=== PATIENT | female | born 1955 | race Caucasian/White ===

== ENCOUNTER 2018-11-10 09:50 | Inpatient (IN) | payer MEDICAID, OTHER ==
[~2018-11-10] VITALS: Ht 167.6 cm; Wt 123.3 kg
[~2018-11-10 09:50] MED LIST: ATE25T PO; CARCD120C PO; DIL100C PO; IBUP-1984 PO; LISI40TA4 PO; OMEP-84 PO; TEG100T PO; ZOC40T PO
[2018-11-10 10:35] LABS: BASOPHILS % (AUTO) 0.4 % (0-1); EOSINOPHILS # (AUTO) 0.2 X10'3 (0-0.9); HEMATOCRIT 37.6 % (35.0-45.0); HEMOGLOBIN 12.3 g/dl (12.0-16.0); LYMPHOCYTES # (AUTO) 1.2 X10'3 (1.1-4.8); LYMPHOCYTES % (AUTO) 9.9 % (21-51); MEAN CORPUSCULAR HEMOGLOBIN 31.2 PG (27.0-31.0); MEAN CORPUSCULAR HGB CONC 32.8 g/dL (33.0-36.5); MEAN CORPUSCULAR VOLUME 95.3 FL (78-98); MEAN PLATELET VOLUME 7.7 FL (7.4-10.4); MONOCYTES # (AUTO) 1.2 X10'3 (0-0.9); MONOCYTES % (AUTO) 9.9 % (2-12); NEUTROPHILS # (AUTO) 9.6 X10'3 (1.8-7.7); NEUTROPHILS % (AUTO) 77.8 % (42-75); PLATELET COUNT 474 X10'3 (140-440); RED BLOOD COUNT 3.95 X10'6 (4.20-5.60); RED CELL DISTRIBUTION WIDTH 14.8 % (11.5-14.5); WHITE BLOOD COUNT 12.4 X10'3 (4.5-11.0)
[2018-11-10 10:47] LABS: ALANINE AMINOTRANSFERASE 15 U/L (12-78); ALBUMIN 2.6 G/DL (3.4-5.0); ALBUMIN/GLOBULIN RATIO 0.5 (1.1-1.5); ALKALINE PHOSPHATASE 82 IU/L (46-116); ANION GAP 12 (8-16); ASPARTATE AMINO TRANSFERASE 19 U/L (10-37); BILIRUBIN,TOTAL 0.1 MG/DL (0.1-1.0); BLOOD UREA NITROGEN 42 MG/DL (7-18); BUN/CREATININE RATIO 20.2 (6.6-38.0); CALCIUM 8.8 MG/DL (8.5-10.1); CHLORIDE 103 MMOL/L (99-107); CREATININE 2.08 MG/DL (0.40-0.90); GLUCOSE 133 MG/DL (70-104); SODIUM 138 MMOL/L (135-145); TOTAL CARBON DIOXIDE 23.3 MMOL/L (24-32); TOTAL PROTEIN 7.5 G/DL (6.4-8.2); eGFR 24 ML/MIN
[2018-11-10 10:49] LABS: POTASSIUM 4.7 MMOL/L (3.5-5.1)
--- NOTE | 2018-11-10 11:01 | NUR ---
awaiting patient to be seen by ED MD.visitor at bedside.
[2018-11-10 11:56] LABS: PARTIAL THROMBOPLASTIN TIME 27 SECONDS (22-32)
[2018-11-10] MEDS ORDERED: CefTRIAXone 2gm/D5W 50ml 50 ML IV ONE (14:40)
[2018-11-10] MEDS ORDERED: IPRA4AER IH (14:56)
[2018-11-10] MEDS ORDERED: BUDE10.2 INH (14:57)
[2018-11-10] MEDS ORDERED: magnesium Cl slow-release 64mg tablet PO PRN (15:00)
[2018-11-10] MEDS ORDERED: acetaminophen 325mg tablet PO PRN ×2 (15:00)
[2018-11-10] MEDS ORDERED: magnesium hydroxide 30ml (MOM) UD suspension PO PRN (15:00)
[2018-11-10] MEDS ORDERED: magnesium 4gm in 100ml NS 100 ML IV PRN (15:00)
[2018-11-10] MEDS ORDERED: CARB200T40 PO (15:00)
[2018-11-10] MEDS: ipratropium/albuterol 3ml nebule NEB SCH ×3 (15:00→23:00)
[2018-11-10] MEDS ORDERED: potassium Cl 20 mEq SR tablet PO PRN ×2 (15:00)
[2018-11-10] MEDS ORDERED: ipratropium/albuterol 3ml nebule NEB PRN (15:00)
[2018-11-10] MEDS ORDERED: potassium CL 10mEq/100ml bag 100 ML IV PRN ×2 (15:00)
[2018-11-10] MEDS ORDERED: magnesium 2GM in 50ml NS 50 ML IV PRN (15:00)
[2018-11-10] MEDS ORDERED: HYDROmorphone 1 mg/ml syringe IV PRN (15:00)
[2018-11-10] MEDS ORDERED: LISI-644 PO (15:00)
[2018-11-10] MEDS ORDERED: HYDROmorphone inj. 0.5 MG/0.5 ML DISP.SYRIN IV PRN (15:00)
[2018-11-10] MEDS ORDERED: ondansetron/PF 4mg/2ml inj IV PRN (15:00)
--- NOTE | 2018-11-10 15:05 | NUR ---
per phamarquez/Mehul,ok to admin rocephin with pcn allergy as long as reaction from pcn was not anaphylactic.
--- NOTE | 2018-11-10 15:49 | NUR ---
Received report from ER nurse Reji. Patient alert, oriented, and vitals are stable at this time.
[2018-11-10 16:00] VITALS: BP 111/73
[2018-11-10] MEDS: normal saline 1000ml 1,000 ML IV SCH (16:16)
[2018-11-10 16:20] VITALS: BP 97/70
[2018-11-10 16:32] LABS: HEMOGLOBIN A1C 6.7 % (4.5-6.2)
[2018-11-10 16:33] VITALS: BP 94/61
[2018-11-10 17:24] LABS: ALBUMIN,BODY FLUID 2.4 G/DL; GLUCOSE,BODY FLUID 142 MG/DL; TOTAL PROTEIN,BODY FLUID 5.1 G/DL
[2018-11-10 17:38] LABS: BFSOURCE LEFT PLEURAL FLD; PLEURAL FLUID PH 6.698 (7.63-7.65)
--- NOTE | 2018-11-10 18:00 | NUR ---
Patients' IV removed because cap of Y-site that was not connected to tubing was open to air. It was a line from the [place] [facility] and someone accidentally took off the access cap that is purple because it's the same color as our tubing. Patients' NS was found free flowing out onto the bed.
--- NOTE | 2018-11-10 18:10 | NUR ---
Problems reprioritized. Patient report given, questions answered & plan of care reviewed with LEXI Deluca.
--- NOTE | 2018-11-10 18:15 | NUR ---
Patient in room [facility]. I have received report from Beatriz ELLIOTT and had the opportunity to ask questions and assume patient care.
[2018-11-10 19:00] VITALS: BP 111/72
[2018-11-10 19:04] LABS: BFAPPEAR BLOODY
[2018-11-10 19:05] LABS: BFCOLOR RED; BFVOLUME 45 ML
[2018-11-10 19:06] LABS: BASOPHILS,BODY FLUID 0 %; BF MESOTHELIAL CELLS FEW; BF RBC COUNT 37778 /CU MM; BF WBC COUNT 1222 /CU MM (0-1000); EOSINOPHILS,BODY FLUID 0 %; LYMPHOCYTES,BODY FLUID 80 %; MONOCYTES,BODY FLUID 14 %; NEUTROPHILS,BODY FLUID 7 %
[2018-11-10] MEDS: budesonide 0.5mg/2ml UD nebule IH SCH (19:20)
[2018-11-10 19:33] LABS: PHENYTOIN (DILANTIN) 5.6 UG/ML (10.0-20.0)
[2018-11-10] MEDS: carBAMazepine 100mg chewable tablet PO SCH (19:44)
[2018-11-10] MEDS: phenytoin sod ER 100mg capsule PO SCH (19:45)
[2018-11-10] MEDS ORDERED: ipratropium/albuterol 3ml nebule IH SCH (21:00)
[2018-11-10] MEDS ORDERED: albuterol 2.5 MG/3 ML nebule NEB SCH (21:00)
[2018-11-11] MEDS: HYDROcodone/acetaminophen 5mg/325mg tablet PO PRN (00:01)
[2018-11-11 00:21] VITALS: BP 97/54
[2018-11-11] MEDS: normal saline 1000ml 1,000 ML IV SCH ×3 (04:20→20:56)
--- NOTE | 2018-11-11 06:00 | NUR ---
Patient in room [facility]. I have received report from MATT ELLIOTT and had the opportunity to ask questions and assume patient care.
--- NOTE | 2018-11-11 06:19 | NUR ---
Gave report to Carmen ELLIOTT pt is awake and alert on 2L of O2 via NC, pt is requesting a banana, call light and items of freq use within reach.
[2018-11-11 06:52] LABS: BASOPHILS # (AUTO) 0.1 X10'3 (0-0.2); BASOPHILS % (AUTO) 0.9 % (0-1); EOSINOPHILS # (AUTO) 0.3 X10'3 (0-0.9); EOSINOPHILS % (AUTO) 2.6 % (0-6); HEMATOCRIT 35.9 % (35.0-45.0); HEMOGLOBIN 12.2 g/dl (12.0-16.0); LYMPHOCYTES # (AUTO) 1.1 X10'3 (1.1-4.8); LYMPHOCYTES % (AUTO) 10.6 % (21-51); MEAN CORPUSCULAR HEMOGLOBIN 32.2 PG (27.0-31.0); MEAN CORPUSCULAR HGB CONC 33.8 g/dL (33.0-36.5); MEAN CORPUSCULAR VOLUME 95.1 FL (78-98); MEAN PLATELET VOLUME 7.6 FL (7.4-10.4); MONOCYTES # (AUTO) 1.2 X10'3 (0-0.9); MONOCYTES % (AUTO) 11.5 % (2-12); NEUTROPHILS # (AUTO) 7.5 X10'3 (1.8-7.7); NEUTROPHILS % (AUTO) 74.4 % (42-75); PLATELET COUNT 472 X10'3 (140-440); RED BLOOD COUNT 3.78 X10'6 (4.20-5.60); RED CELL DISTRIBUTION WIDTH 14.6 % (11.5-14.5); WHITE BLOOD COUNT 10.1 X10'3 (4.5-11.0)
[2018-11-11 06:57] LABS: ANION GAP 10 (8-16); BILIRUBIN,TOTAL 0.2 MG/DL (0.1-1.0); BLOOD UREA NITROGEN 45 MG/DL (7-18); CALCIUM 8.6 MG/DL (8.5-10.1); CHLORIDE 107 MMOL/L (99-107); CREATININE 2.05 MG/DL (0.40-0.90); GLUCOSE 110 MG/DL (70-104); PHOSPHORUS 5.9 MG/DL (2.3-4.5); POTASSIUM 4.5 MMOL/L (3.5-5.1); SODIUM 142 MMOL/L (135-145); TOTAL CARBON DIOXIDE 24.8 MMOL/L (24-32); eGFR 24 ML/MIN
[2018-11-11 06:58] LABS: ALANINE AMINOTRANSFERASE 15 U/L (12-78); ALBUMIN 2.3 G/DL (3.4-5.0); ALBUMIN/GLOBULIN RATIO 0.5 (1.1-1.5); ALKALINE PHOSPHATASE 72 IU/L (46-116); ASPARTATE AMINO TRANSFERASE 16 U/L (10-37); CHOL/HDL RATIO 4.9 (0.00-4.99); CHOLESTEROL 177 MG/DL (0-200); HDL CHOLESTEROL 36 MG/DL (35-60); LDL CHOLESTEROL 111 MG/DL (50-100); TOTAL PROTEIN 6.8 G/DL (6.4-8.2); TRIGLYCERIDES 152 MG/DL (20-135)
[2018-11-11 07:00] VITALS: BP 93/53
[2018-11-11] MEDS: budesonide 0.5mg/2ml UD nebule IH SCH ×2 (07:43→19:06)
[2018-11-11] MEDS: ipratropium/albuterol 3ml nebule NEB SCH ×5 (07:43→23:00)
[2018-11-11] MEDS: K and/or MAG REPLACEMENT MC SCH (08:00)
[2018-11-11] MEDS ORDERED: carBAMazepine 100mg chewable tablet PO SCH (08:00)
[2018-11-11] MEDS: carBAMazepine 100mg chewable tablet PO SCH ×2 (08:24→19:26)
[2018-11-11] MEDS: phenytoin sod ER 100mg capsule PO SCH ×2 (08:25→19:26)
[2018-11-11] MEDS: CefTRIAXone/D5W-Rocephin 1gm 50 ML IV SCH (08:25)
--- NOTE | 2018-11-11 09:20 | NUR ---
DM consult: Patient's A1c is 6.7, DM education not warranted at this time. Will continue to follow. Addendum: 11/11/18 at [address] Amended: Links added.
[2018-11-11 11:00] VITALS: BP 158/124
[2018-11-11 11:58] VITALS: BP 140/60
--- NOTE | 2018-11-11 11:59 | NUR ---
PT'S BP CHECK WITH AUTOMATIC CUFF SEEMED OFF. RECHECKED MANUALLY. BP 140/60
--- NOTE | 2018-11-11 18:05 | NUR ---
Received report from Carmen ELLIOTT pt is awake and alert sitting in bedside chair eating dinner in no apparent distress, call light and items of freq use within reach.
--- NOTE | 2018-11-11 18:12 | NUR ---
GAVE REPORT TO MATT ELLIOTT
[2018-11-11 19:00] VITALS: BP 91/54
[2018-11-11] MEDS: lactobacillus rhamnosus 10,000 MMU CELLS/CAPSULE PO SCH (19:26)
[2018-11-12 00:46] VITALS: BP 108/59
[2018-11-12] MEDS: normal saline 1000ml 1,000 ML IV SCH (01:23)
--- NOTE | 2018-11-12 06:34 | NUR ---
Gave report to Carmen ELLIOTT pt is awake and alert on 2l OF O2, in no apparent distress.
[2018-11-12 06:40] LABS: BASOPHILS # (AUTO) 0.1 X10'3 (0-0.2); BASOPHILS % (AUTO) 0.7 % (0-1); EOSINOPHILS # (AUTO) 0.2 X10'3 (0-0.9); HEMATOCRIT 34.9 % (35.0-45.0); HEMOGLOBIN 11.5 g/dl (12.0-16.0); LYMPHOCYTES % (AUTO) 8.7 % (21-51); MEAN CORPUSCULAR HEMOGLOBIN 31.5 PG (27.0-31.0); MEAN CORPUSCULAR VOLUME 95.6 FL (78-98); MEAN PLATELET VOLUME 7.6 FL (7.4-10.4); MONOCYTES # (AUTO) 1.2 X10'3 (0-0.9); MONOCYTES % (AUTO) 10.7 % (2-12); NEUTROPHILS # (AUTO) 8.8 X10'3 (1.8-7.7); NEUTROPHILS % (AUTO) 77.9 % (42-75); PLATELET COUNT 448 X10'3 (140-440); RED BLOOD COUNT 3.65 X10'6 (4.20-5.60); RED CELL DISTRIBUTION WIDTH 14.4 % (11.5-14.5); WHITE BLOOD COUNT 11.3 X10'3 (4.5-11.0)
--- NOTE | 2018-11-12 06:45 | NUR ---
Patient in room [facility]. I have received report from MATT ELLIOTT and had the opportunity to ask questions and assume patient care.
[2018-11-12 06:50] LABS: ALANINE AMINOTRANSFERASE 13 U/L (12-78); ALBUMIN 2.3 G/DL (3.4-5.0); ALBUMIN/GLOBULIN RATIO 0.5 (1.1-1.5); ALKALINE PHOSPHATASE 70 IU/L (46-116); ANION GAP 15 (8-16); ASPARTATE AMINO TRANSFERASE 13 U/L (10-37); BILIRUBIN,TOTAL 0.3 MG/DL (0.1-1.0); BLOOD UREA NITROGEN 31 MG/DL (7-18); BUN/CREATININE RATIO 25.4 (6.6-38.0); CALCIUM 8.5 MG/DL (8.5-10.1); CHLORIDE 105 MMOL/L (99-107); CREATININE 1.22 MG/DL (0.40-0.90); GLUCOSE 133 MG/DL (70-104); MAGNESIUM 2.1 MG/DL (1.5-2.4); PHOSPHORUS 3.5 MG/DL (2.3-4.5); SODIUM 142 MMOL/L (135-145); TOTAL CARBON DIOXIDE 22.3 MMOL/L (24-32); TOTAL PROTEIN 6.8 G/DL (6.4-8.2); eGFR 45 ML/MIN
[2018-11-12 07:00] VITALS: BP 103/66
[2018-11-12] MEDS: budesonide 0.5mg/2ml UD nebule IH SCH ×2 (07:23→19:33)
[2018-11-12] MEDS: ipratropium/albuterol 3ml nebule NEB SCH ×5 (07:23→23:31)
[2018-11-12] MEDS: K and/or MAG REPLACEMENT MC SCH (08:00)
[2018-11-12] MEDS: lactobacillus rhamnosus 10,000 MMU CELLS/CAPSULE PO SCH ×2 (08:18→20:10)
[2018-11-12] MEDS: phenytoin sod ER 100mg capsule PO SCH ×2 (08:18→20:11)
[2018-11-12] MEDS: CefTRIAXone/D5W-Rocephin 1gm 50 ML IV SCH (08:18)
[2018-11-12] MEDS: carBAMazepine 100mg chewable tablet PO SCH ×2 (08:19→20:12)
[2018-11-12 11:00] VITALS: BP 99/64
[2018-11-12] MEDS ORDERED: furosemide 20 MG/2 ML vial IV ONE (12:45)
--- NOTE | 2018-11-12 18:00 | NUR ---
Received report from LEXI Morales and assumed plan of care. Patient resting comfortably in chair.
--- NOTE | 2018-11-12 18:30 | NUR ---
Patient in room [facility]. I have received report from VICTORIA and had the opportunity to ask questions and assume patient care. Addendum: 11/13/18 at 0401 by Flor Nunez RN ASSUMED CARE OF PT WITH LEXI Cha
[2018-11-12 19:00] VITALS: BP 125/78
[2018-11-13] VITALS: BP 114/68
--- NOTE | 2018-11-13 03:59 | NUR ---
Student documentation: I have reviewed and agree with all interventions, assessments performed and documented by JOSÉ MIGUEL Cha Student Medication Administration: For this medication-pass time frame, all medication were reviewed, dispensed, administered and documented per hospital policy by JOSÉ MIGUEL Cha
--- NOTE | 2018-11-13 05:25 | NUR ---
PT C/O SOB UPON WAKING UP. OXYGEN SATURATIONS 83-85% ON 3L NC. RT PAGED AT THIS TIME. PT PLACED ON 4L NC. ENCOURAGED PURSED LIP BREATHING. OXYGEN SATS 88%. RT HERE FOR TX AT THIS TIME. LUNGS CONTINUE TO SOUND DIMINISHED WITH CRACKLES IN POSTERIOR BASES. POST RT TX: OXYGEN SATURATIONS 88-89% 5L NC. PT REPOSITIONED IN BED. USING IS AT THIS TIME. OXYGEN SATURATIONS 93%. ENCOURAGED INCREASE USE OF IS AND COUGH DEEP BREATHE. CONTINUE TO MONITOR.
[2018-11-13 05:31] LABS: BASOPHILS # (AUTO) 0.1 X10'3 (0-0.2); BASOPHILS % (AUTO) 0.4 % (0-1); EOSINOPHILS # (AUTO) 0.3 X10'3 (0-0.9); EOSINOPHILS % (AUTO) 2.5 % (0-6); HEMOGLOBIN 11.5 g/dl (12.0-16.0); LYMPHOCYTES # (AUTO) 1.2 X10'3 (1.1-4.8); LYMPHOCYTES % (AUTO) 9.6 % (21-51); MEAN CORPUSCULAR HEMOGLOBIN 31.1 PG (27.0-31.0); MEAN CORPUSCULAR HGB CONC 32.8 g/dL (33.0-36.5); MEAN CORPUSCULAR VOLUME 94.9 FL (78-98); MEAN PLATELET VOLUME 7.6 FL (7.4-10.4); MONOCYTES # (AUTO) 1.3 X10'3 (0-0.9); MONOCYTES % (AUTO) 10.5 % (2-12); NEUTROPHILS # (AUTO) 9.4 X10'3 (1.8-7.7); PLATELET COUNT 443 X10'3 (140-440); RED BLOOD COUNT 3.68 X10'6 (4.20-5.60); RED CELL DISTRIBUTION WIDTH 14.5 % (11.5-14.5); WHITE BLOOD COUNT 12.3 X10'3 (4.5-11.0)
[2018-11-13 05:32] LABS: ALANINE AMINOTRANSFERASE 17 U/L (12-78); ALBUMIN 2.2 G/DL (3.4-5.0); ALBUMIN/GLOBULIN RATIO 0.5 (1.1-1.5); ALKALINE PHOSPHATASE 70 IU/L (46-116); ANION GAP 11 (8-16); ASPARTATE AMINO TRANSFERASE 20 U/L (10-37); BILIRUBIN,TOTAL 0.3 MG/DL (0.1-1.0); BLOOD UREA NITROGEN 23 MG/DL (7-18); BUN/CREATININE RATIO 22.1 (6.6-38.0); CALCIUM 8.3 MG/DL (8.5-10.1); CHLORIDE 107 MMOL/L (99-107); CREATININE 1.04 MG/DL (0.40-0.90); GLUCOSE 130 MG/DL (70-104); MAGNESIUM 1.9 MG/DL (1.5-2.4); POTASSIUM 3.8 MMOL/L (3.5-5.1); SODIUM 142 MMOL/L (135-145); TOTAL CARBON DIOXIDE 24.1 MMOL/L (24-32); TOTAL PROTEIN 6.8 G/DL (6.4-8.2); eGFR 54 ML/MIN
--- NOTE | 2018-11-13 06:15 | NUR ---
Patient in room [facility]. I have received report from LEXI Ray and had the opportunity to ask questions and assume patient care.
[2018-11-13 06:30] VITALS: BP 130/78
--- NOTE | 2018-11-13 06:39 | NUR ---
Problems reprioritized. Patient report given, questions answered & plan of care reviewed with MAINE.
[2018-11-13] MEDS: budesonide 0.5mg/2ml UD nebule IH SCH ×2 (06:57→19:45)
[2018-11-13] MEDS: ipratropium/albuterol 3ml nebule NEB SCH ×5 (06:57→23:57)
[2018-11-13] MEDS: K and/or MAG REPLACEMENT MC SCH (07:00)
[2018-11-13] MEDS ORDERED: furosemide 20 MG/2 ML vial IV SCH (08:00)
[2018-11-13] MEDS: lactobacillus rhamnosus 10,000 MMU CELLS/CAPSULE PO SCH ×2 (08:34→20:06)
[2018-11-13] MEDS: CefTRIAXone/D5W-Rocephin 1gm 50 ML IV SCH (08:34)
[2018-11-13] MEDS: carBAMazepine 100mg chewable tablet PO SCH ×2 (08:36→20:16)
[2018-11-13] MEDS: phenytoin sod ER 100mg capsule PO SCH ×2 (08:36→20:07)
[2018-11-13] MEDS ORDERED: furosemide 20 MG/2 ML vial IV ONE (08:50)
[2018-11-13 11:00] VITALS: BP 115/75
[2018-11-13] MEDS: nystatin 15 GM powder TP SCH ×2 (14:16→20:17)
[2018-11-13 18:00] VITALS: BP 110/66
--- NOTE | 2018-11-13 18:20 | NUR ---
Patient in room [facility]. I have received report from Raysa Ryan RN and had the opportunity to ask questions and assume patient care.
--- NOTE | 2018-11-13 18:23 | NUR ---
Patient in room [facility]. I have received report from LEXI Zayas and had the opportunity to ask questions and assume patient care.
[2018-11-13] MEDS: HYDROcodone/acetaminophen 5mg/325mg tablet PO PRN (20:08)
[2018-11-13] MEDS: furosemide 40mg/4ml inj IV SCH (20:09)
[2018-11-13 23:24] VITALS: BP 117/82
[2018-11-14 05:03] LABS: BASOPHILS # (AUTO) 0.1 X10'3 (0-0.2); BASOPHILS % (AUTO) 0.8 % (0-1); EOSINOPHILS # (AUTO) 0.3 X10'3 (0-0.9); EOSINOPHILS % (AUTO) 2.5 % (0-6); HEMATOCRIT 34.4 % (35.0-45.0); HEMOGLOBIN 11.4 g/dl (12.0-16.0); LYMPHOCYTES % (AUTO) 7.8 % (21-51); MEAN CORPUSCULAR HEMOGLOBIN 31.1 PG (27.0-31.0); MEAN CORPUSCULAR VOLUME 94.3 FL (78-98); MEAN PLATELET VOLUME 7.3 FL (7.4-10.4); MONOCYTES # (AUTO) 1.4 X10'3 (0-0.9); MONOCYTES % (AUTO) 11.6 % (2-12); NEUTROPHILS # (AUTO) 9.4 X10'3 (1.8-7.7); NEUTROPHILS % (AUTO) 77.3 % (42-75); PLATELET COUNT 420 X10'3 (140-440); RED BLOOD COUNT 3.65 X10'6 (4.20-5.60); RED CELL DISTRIBUTION WIDTH 14.6 % (11.5-14.5); WHITE BLOOD COUNT 12.2 X10'3 (4.5-11.0)
--- NOTE | 2018-11-14 05:16 | NUR ---
Pt requesting Benadryl for itchy/stuffy nose. Obtained MD order. Pharmacy states allergy is noted. Confirmed with pt and she states that she does not have any allergy and takes it OTC at home.
[2018-11-14 05:24] LABS: ALANINE AMINOTRANSFERASE 15 U/L (12-78); ALBUMIN 2.1 G/DL (3.4-5.0); ALBUMIN/GLOBULIN RATIO 0.5 (1.1-1.5); ALKALINE PHOSPHATASE 71 IU/L (46-116); ANION GAP 12 (8-16); ASPARTATE AMINO TRANSFERASE 15 U/L (10-37); BILIRUBIN,TOTAL 0.3 MG/DL (0.1-1.0); BLOOD UREA NITROGEN 19 MG/DL (7-18); CHLORIDE 106 MMOL/L (99-107); CREATININE 0.95 MG/DL (0.40-0.90); GLUCOSE 131 MG/DL (70-104); MAGNESIUM 1.7 MG/DL (1.5-2.4); POTASSIUM 3.6 MMOL/L (3.5-5.1); SODIUM 142 MMOL/L (135-145); TOTAL CARBON DIOXIDE 24.5 MMOL/L (24-32); TOTAL PROTEIN 6.7 G/DL (6.4-8.2); eGFR 59 ML/MIN
[2018-11-14] MEDS: diphenhydrAMINE 25mg capsule PO PRN (05:26)
--- NOTE | 2018-11-14 06:30 | NUR ---
Patient in room [facility]. I have received report from Rocio RN and Raysa Ryan RN and had the opportunity to ask questions and assume patient care. Patient is resting in chair, denies needs at this time.
--- NOTE | 2018-11-14 06:30 | NUR ---
Problems reprioritized. Patient report given, questions answered & plan of care reviewed with LEXI Dolan.
[2018-11-14 07:21] VITALS: BP 107/65
[2018-11-14] MEDS: budesonide 0.5mg/2ml UD nebule IH SCH ×2 (07:51→19:05)
[2018-11-14] MEDS: ipratropium/albuterol 3ml nebule NEB SCH ×5 (07:51→23:00)
[2018-11-14] MEDS: K and/or MAG REPLACEMENT MC SCH (08:00)
[2018-11-14 08:34] LABS: HBSAG SCREEN Negative (Negative); HEP A AB, IGM Negative (Negative); HEP B CORE AB, IGM Negative (Negative); HEPATITIS C ANTIBODY <0.1 s/co ratio (0.0-0.9)
[2018-11-14] MEDS: furosemide 40mg/4ml inj IV SCH ×2 (09:04→20:17)
[2018-11-14] MEDS: lactobacillus rhamnosus 10,000 MMU CELLS/CAPSULE PO SCH ×2 (09:04→20:15)
[2018-11-14] MEDS: phenytoin sod ER 100mg capsule PO SCH ×2 (09:04→20:17)
[2018-11-14] MEDS: CefTRIAXone/D5W-Rocephin 1gm 50 ML IV SCH (09:05)
[2018-11-14] MEDS: nystatin 15 GM powder TP SCH ×3 (09:08→20:15)
[2018-11-14] MEDS: carBAMazepine 100mg chewable tablet PO SCH ×2 (09:15→20:16)
[2018-11-14 11:30] VITALS: BP 104/70
[2018-11-14 18:00] VITALS: BP 106/73
--- NOTE | 2018-11-14 18:48 | NUR ---
Problems reprioritized. Patient report given, questions answered & plan of care reviewed with Raysa Lieberman RN. Resting denies needs at this time.
[2018-11-15] VITALS (7 sets, daily range): BP systolic 100–137; BP diastolic 48–92
[2018-11-15] MEDS ORDERED: normal saline 500ml IV soln 500 ML IV ONE
[2018-11-15] MEDS: diphenhydrAMINE 25mg capsule PO PRN (00:24)
[2018-11-15 00:48] LABS: BASOPHILS # (AUTO) 0.1 X10'3 (0-0.2); BASOPHILS % (AUTO) 0.8 % (0-1); EOSINOPHILS # (AUTO) 0.3 X10'3 (0-0.9); EOSINOPHILS % (AUTO) 2.1 % (0-6); HEMATOCRIT 35.5 % (35.0-45.0); HEMOGLOBIN 11.9 g/dl (12.0-16.0); LYMPHOCYTES # (AUTO) 1.1 X10'3 (1.1-4.8); LYMPHOCYTES % (AUTO) 8.4 % (21-51); MEAN CORPUSCULAR HEMOGLOBIN 31.3 PG (27.0-31.0); MEAN CORPUSCULAR HGB CONC 33.7 g/dL (33.0-36.5); MEAN CORPUSCULAR VOLUME 92.9 FL (78-98); MEAN PLATELET VOLUME 7.1 FL (7.4-10.4); MONOCYTES # (AUTO) 1.8 X10'3 (0-0.9); MONOCYTES % (AUTO) 13.4 % (2-12); NEUTROPHILS % (AUTO) 75.3 % (42-75); PLATELET COUNT 453 X10'3 (140-440); RED BLOOD COUNT 3.82 X10'6 (4.20-5.60); RED CELL DISTRIBUTION WIDTH 14.4 % (11.5-14.5); WHITE BLOOD COUNT 13.3 X10'3 (4.5-11.0)
[2018-11-15 01:00] LABS: ALBUMIN 2.2 G/DL (3.4-5.0); ANION GAP 9 (8-16); BLOOD UREA NITROGEN 20 MG/DL (7-18); BUN/CREATININE RATIO 21.1 (6.6-38.0); CALCIUM 8.1 MG/DL (8.5-10.1); CHLORIDE 102 MMOL/L (99-107); CREATININE 0.95 MG/DL (0.40-0.90); GLUCOSE 134 MG/DL (70-104); MAGNESIUM 1.6 MG/DL (1.5-2.4); POTASSIUM 3.3 MMOL/L (3.5-5.1); SODIUM 139 MMOL/L (135-145); TOTAL CARBON DIOXIDE 27.9 MMOL/L (24-32); eGFR 59 ML/MIN
[2018-11-15] MEDS ORDERED: magnesium 2GM in 50ml NS 50 ML IV PRN (01:10)
[2018-11-15] MEDS ORDERED: potassium Cl 20 mEq SR tablet PO PRN (01:10)
[2018-11-15] MEDS ORDERED: magnesium Cl slow-release 64mg tablet PO PRN (01:10)
[2018-11-15] MEDS ORDERED: potassium CL 10mEq/100ml bag 100 ML IV PRN (01:10)
[2018-11-15] MEDS ORDERED: magnesium 4gm in 100ml NS 100 ML IV PRN (01:10)
[2018-11-15] MEDS ORDERED: magnesium 2GM in 50ml NS 50 ML IV ONE (01:10)
--- NOTE | 2018-11-15 01:12 | NUR ---
Pt HR in the 130's and sustaining. Pt asymptomatic. EKG results sent to . QT interval prolonged. Reviewed current meds with MD. Stat BMP, CBC, Mag obtained. 500 mL bolus given. Pt remains in the 120's. Pt K 3.3, Mag 1.7. Obtained orders for K replacement and 2gm Mag replacement. Will continue to monitor. Patient resting at this time.
[2018-11-15] MEDS: potassium Cl 20 mEq SR tablet PO PRN ×2 (01:17→07:54)
[2018-11-15] MEDS: HYDROcodone/acetaminophen 10/325mg tab PO PRN ×3 (02:00→19:56)
--- NOTE | 2018-11-15 03:11 | NUR ---
Tele confirms HR still in 120's.
--- NOTE | 2018-11-15 06:04 | NUR ---
Problems reprioritized. Patient report given, questions answered & plan of care reviewed with LEXI Dolan.
--- NOTE | 2018-11-15 06:10 | NUR ---
Patient in room [facility]. I have received report from Raysa Lieberman RN and had the opportunity to ask questions and assume patient care. Patient resting in bed, denies needs at this time.
--- NOTE | 2018-11-15 06:45 | NUR ---
Received note that tele called stating that the patient's HR is maintaining in the 130s. Notified Dr. Walter, received order to provide NS at 500 ml bolus, get orthostatic vital signs, and hold lasix. Will continue to monitor.
[2018-11-15] MEDS ORDERED: normal saline 500ml IV soln 1,000 ML IV ONE (06:50)
[2018-11-15] MEDS: ipratropium/albuterol 3ml nebule NEB SCH ×4 (07:00→19:24)
[2018-11-15] MEDS: furosemide 40mg/4ml inj IV SCH (07:17)
--- NOTE | 2018-11-15 07:19 | NUR ---
Patient in room [facility]. I have received report from Kelsi and had the opportunity to ask questions and assume patient care.
[2018-11-15] MEDS: CefTRIAXone/D5W-Rocephin 1gm 50 ML IV SCH (07:53)
[2018-11-15] MEDS: carBAMazepine 100mg chewable tablet PO SCH ×2 (07:53→19:51)
[2018-11-15] MEDS: lactobacillus rhamnosus 10,000 MMU CELLS/CAPSULE PO SCH ×2 (07:54→19:51)
[2018-11-15] MEDS: phenytoin sod ER 100mg capsule PO SCH ×2 (07:54→19:51)
[2018-11-15] MEDS: budesonide 0.5mg/2ml UD nebule IH SCH ×2 (08:04→19:24)
[2018-11-15] MEDS: K and/or MAG REPLACEMENT MC SCH (08:29)
[2018-11-15 09:03] LABS: BASOPHILS # (AUTO) 0.1 X10'3 (0-0.2); BASOPHILS % (AUTO) 0.9 % (0-1); EOSINOPHILS # (AUTO) 0.3 X10'3 (0-0.9); EOSINOPHILS % (AUTO) 2.5 % (0-6); HEMATOCRIT 35.9 % (35.0-45.0); HEMOGLOBIN 12.1 g/dl (12.0-16.0); LYMPHOCYTES # (AUTO) 0.8 X10'3 (1.1-4.8); LYMPHOCYTES % (AUTO) 6.8 % (21-51); MEAN CORPUSCULAR HEMOGLOBIN 31.7 PG (27.0-31.0); MEAN CORPUSCULAR HGB CONC 33.8 g/dL (33.0-36.5); MEAN CORPUSCULAR VOLUME 93.6 FL (78-98); MEAN PLATELET VOLUME 7.4 FL (7.4-10.4); MONOCYTES # (AUTO) 1.3 X10'3 (0-0.9); MONOCYTES % (AUTO) 10.5 % (2-12); NEUTROPHILS # (AUTO) 9.6 X10'3 (1.8-7.7); NEUTROPHILS % (AUTO) 79.3 % (42-75); PLATELET COUNT 463 X10'3 (140-440); RED BLOOD COUNT 3.83 X10'6 (4.20-5.60); RED CELL DISTRIBUTION WIDTH 14.3 % (11.5-14.5); WHITE BLOOD COUNT 12.1 X10'3 (4.5-11.0)
[2018-11-15] MEDS: nystatin 15 GM powder TP SCH ×3 (09:14→19:58)
[2018-11-15 09:16] LABS: ALANINE AMINOTRANSFERASE 14 U/L (12-78); ALBUMIN 2.1 G/DL (3.4-5.0); ALBUMIN/GLOBULIN RATIO 0.4 (1.1-1.5); ALKALINE PHOSPHATASE 74 IU/L (46-116); ANION GAP 9 (8-16); ASPARTATE AMINO TRANSFERASE 18 U/L (10-37); BILIRUBIN,TOTAL 0.3 MG/DL (0.1-1.0); BLOOD UREA NITROGEN 20 MG/DL (7-18); CHLORIDE 104 MMOL/L (99-107); CREATININE 0.91 MG/DL (0.40-0.90); GLUCOSE 131 MG/DL (70-104); MAGNESIUM 2.1 MG/DL (1.5-2.4); PHOSPHORUS 2.8 MG/DL (2.3-4.5); POTASSIUM 3.9 MMOL/L (3.5-5.1); SODIUM 141 MMOL/L (135-145); TOTAL CARBON DIOXIDE 27.9 MMOL/L (24-32); TOTAL PROTEIN 6.9 G/DL (6.4-8.2); eGFR 62 ML/MIN
--- NOTE | 2018-11-15 09:51 | NUR ---
Notified Dr. Copeland that the patient's HR has been sustaining in the 120-130s since midnight. 2 bolus of NS 500 mls given, orthostatics negative, and lasix was held. Lungs were clear at start of shift and now having crackles in lower bases posteriorly. Received order from Dr. Copeland to order stat chest xray and have her walk frequently to improve lungs. Will continue to monitor.
[2018-11-15] MEDS: metoprolol tartrate 12.5mg (1/2 tablet) PO SCH ×2 (11:42→19:52)
--- NOTE | 2018-11-15 11:56 | NUR ---
Problems reprioritized. Patient report given, questions answered & plan of care reviewed with Kelsi.
--- NOTE | 2018-11-15 12:10 | NUR ---
Patient in room [facility]. I have received report from og garnett and had the opportunity to ask questions and assume patient care.
--- NOTE | 2018-11-15 17:51 | NUR ---
Student documentation: I have reviewed interventions, assessments performed and documented by Keenan Student Nurse.
--- NOTE | 2018-11-15 18:46 | NUR ---
Problems reprioritized. Patient report given, questions answered & plan of care reviewed with Ina ELLIOTT. Patient states just off BSC and would like emptied, done.
[2018-11-15] MEDS: furosemide 20 MG/2 ML vial IV SCH (19:52)
[2018-11-16] VITALS: BP 110/70
[2018-11-16] MEDS: ipratropium/albuterol 3ml nebule NEB SCH ×4 (00:02→15:00)
[2018-11-16] MEDS: mag hydrox/Alum hydrox/simeth 30ml oral suspension PO PRN ×3 (02:45→15:11)
[2018-11-16] MEDS: HYDROcodone/acetaminophen 10/325mg tab PO PRN ×2 (02:46→07:49)
--- NOTE | 2018-11-16 02:53 | NUR ---
up to [facility], c/o "heart burn" maalox given, burped with relief. poc with pillows. Addendum: 11/16/18 at 0254 by Masha Donato RN Amended: Links added.
--- NOTE | 2018-11-16 04:30 | NUR ---
o2 sat dropped down to 79% on 2.5 l n/c. o2 back up to 3l n/c, sat 89%. pt hr has remained in 90's throughout night, but just went up to 120 when pt using bsc. will continue to monitor. Addendum: 11/16/18 at 0441 by Masha Donato RN Amended: Links added.
[2018-11-16 05:03] VITALS: BP 113/73
--- NOTE | 2018-11-16 06:30 | NUR ---
Problems reprioritized. Patient report given, questions answered & plan of care reviewed with LEXI Calhoun. Addendum: 11/16/18 at 0644 by Masha Donato RN Amended: Links added.
[2018-11-16 06:55] LABS: BASOPHILS # (AUTO) 0.1 X10'3 (0-0.2); BASOPHILS % (AUTO) 0.9 % (0-1); EOSINOPHILS # (AUTO) 0.3 X10'3 (0-0.9); EOSINOPHILS % (AUTO) 2.5 % (0-6); HEMATOCRIT 35.5 % (35.0-45.0); LYMPHOCYTES % (AUTO) 7.9 % (21-51); MEAN CORPUSCULAR HEMOGLOBIN 31.8 PG (27.0-31.0); MEAN CORPUSCULAR HGB CONC 33.9 g/dL (33.0-36.5); MEAN CORPUSCULAR VOLUME 93.7 FL (78-98); MEAN PLATELET VOLUME 7.8 FL (7.4-10.4); MONOCYTES # (AUTO) 1.3 X10'3 (0-0.9); NEUTROPHILS # (AUTO) 9.5 X10'3 (1.8-7.7); NEUTROPHILS % (AUTO) 77.7 % (42-75); PLATELET COUNT 442 X10'3 (140-440); RED BLOOD COUNT 3.79 X10'6 (4.20-5.60); RED CELL DISTRIBUTION WIDTH 14.5 % (11.5-14.5); WHITE BLOOD COUNT 12.2 X10'3 (4.5-11.0)
[2018-11-16 07:00] VITALS: BP_SYST 107; BP_SYST 108; BP_SYST 117; BP_DIAS 53; BP_DIAS 60; BP_DIAS 75
[2018-11-16 07:05] LABS: ALBUMIN 2.2 G/DL (3.4-5.0); ANION GAP 11 (8-16); BLOOD UREA NITROGEN 21 MG/DL (7-18); BUN/CREATININE RATIO 23.3 (6.6-38.0); CALCIUM 8.3 MG/DL (8.5-10.1); CHLORIDE 103 MMOL/L (99-107); GLUCOSE 123 MG/DL (70-104); MAGNESIUM 2.2 MG/DL (1.5-2.4); SODIUM 139 MMOL/L (135-145); TOTAL CARBON DIOXIDE 24.6 MMOL/L (24-32); eGFR 63 ML/MIN
[2018-11-16] MEDS: furosemide 20 MG/2 ML vial IV SCH (07:42)
[2018-11-16] MEDS: lactobacillus rhamnosus 10,000 MMU CELLS/CAPSULE PO SCH (07:48)
[2018-11-16] MEDS: CefTRIAXone/D5W-Rocephin 1gm 50 ML IV SCH (07:48)
[2018-11-16] MEDS: phenytoin sod ER 100mg capsule PO SCH (07:49)
[2018-11-16] MEDS: carBAMazepine 100mg chewable tablet PO SCH (07:49)
[2018-11-16] MEDS: metoprolol tartrate 12.5mg (1/2 tablet) PO SCH (07:50)
[2018-11-16] MEDS: budesonide 0.5mg/2ml UD nebule IH SCH (07:55)
[2018-11-16] MEDS: K and/or MAG REPLACEMENT MC SCH (08:00)
[2018-11-16] MEDS: nystatin 15 GM powder TP SCH (08:03)
--- NOTE | 2018-11-16 10:00 | NUR ---
Patient in room [facility]. I have received report from Unique (time was 15) and had the opportunity to ask questions and assume patient care.
--- NOTE | 2018-11-16 10:27 | NUR ---
O2 Sat at rest on room air:87% If below 89%: Recovery O2 Sat at rest on 3 LPM:94 %: via_nasal cannula___(mask/nasal cannula, etc..) No further documentation is necessary. If O2 Sat did not drop below 89% on room air,ambulate patient on room air. O2 Sat while ambulating on room air:___% Recovery O2 Sat while ambulating on ___LPM:___% No further documentation is necessary. If patient does not drop below 89% while ambulating, he/she does not qualify for home O2.
[2018-11-16 11:03] VITALS: BP 103/69
[2018-11-16] MEDS ORDERED: FURO-149 PO (11:14)
[2018-11-16] MEDS ORDERED: METO25TA6 PO (11:14)
--- NOTE | 2018-11-16 12:00 | NUR ---
Patient in room [facility]. I have received report from og student RN and had the opportunity to ask questions and assume patient care.
--- NOTE | 2018-11-16 12:00 | NUR ---
came and spoke with patient about pathology report. Dr. Urbina called and agreed to see patient in her office early next week. Patient ready for discharge, instructions given and reviewed. Awaiting delivery of home oxygen and then patient will discharge home.
--- NOTE | 2018-11-16 12:03 | NUR ---
Problems reprioritized. Patient report given, questions answered & plan of care reviewed with Unique.
--- NOTE | 2018-11-16 16:17 | NUR ---
Patient has a fair appetite, eating about 50-75% average of carb controlled meals. Admitted with bilateral pleural effusion s/p thoracentesis with 1650 ml out, SHERWIN, COPD, h/o CHF, HTN, hyperlipidemia, seizures, DM. Patient has shortness of breath, needing oxygen. Per MD note, patient is being started on statin for hyperlipidemia. Pending discharge home today. Recommend: 1. continue carb controlled diet 2. wt per rx Addendum: 11/16/18 at [address] Amended: Links added.
[2018-11-16] MEDS: HYDROcodone/acetaminophen 5mg/325mg tablet PO PRN (16:28)
--- NOTE | 2018-11-16 17:25 | NUR ---
Student documentation: I have reviewed and agree with all interventions, assessments performed and documented by Maddison MUSE.
--- NOTE | 2018-11-16 17:39 | NUR ---
Patient refusing care and wanting to leave AMA. Still waiting for home o2 to be delivered. Called [employer], they stated that the order has processed, however they do not have an ETA on the delivery.
--- NOTE | 2018-11-16 17:39 | NUR ---
Blood glucose not taken due to patient discharging.
--- NOTE | 2018-11-16 18:26 | NUR ---
Patient discharged home with sister. IV removed. playground monitor removed. All belongings taken from room. Home O2 delivered and set up for patient. Discharge instructions given and reviewed with patient. All questions answered. Instructed patient on the importance of following up with Dr Urbina the oncologist.
== END 2018-11-16 18:23 | disposition home or self-care (01) | DRG 682 ==
LOC: ER 09:50 → SUR 3N 15:49
PROVIDERS: ADMIT Family Medicine; ATTEND Hospitalist
PROC: 0W9B3ZZ Drainage of Left Pleural Cavity, Percutaneous Approach (ICD-10-PCS; principal; 2018-11-10)
DX: N17.0 Acute kidney failure with tubular necrosis (principal); I50.33 Acute on chronic diastolic (congestive) heart failure; J44.1 Chronic obstructive pulmonary disease with (acute) exacerbation; Z68.41 Body mass index [BMI] 40.0-44.9, adult; J91.8 Pleural effusion in other conditions classified elsewhere; R18.8 Other ascites; E66.01 Morbid (severe) obesity due to excess calories; E11.9 Type 2 diabetes mellitus without complications; E78.5 Hyperlipidemia, unspecified; G47.33 Obstructive sleep apnea (adult) (pediatric); I11.0 Hypertensive heart disease with heart failure; K74.60 Unspecified cirrhosis of liver; M19.90 Unspecified osteoarthritis, unspecified site; R00.0 Tachycardia, unspecified; Z98.51 Tubal ligation status; Z88.0 Allergy status to penicillin; Z88.1 Allergy status to other antibiotic agents; Z88.8 Allergy status to other drugs, medicaments and biological substances; Z79.899 Other long term (current) drug therapy
CPT/HCPCS: 32555; 36415; 71045; 71250; 76700; 80048; 80053; 80061; 80074; 80185; 82042; 82945; 82948; 83036; 83735; 83880; 83986; 84100; 84157; 84443; 84484; 85025; 85610; 85730; 87070; 87075; 87081; 87102; 89051; 93005; 93308; 94640; 94760; 96365; 97110; 97112; 97116; 97161; 97530; 99285; G0378; J0696; J1940; J3475; J7030; J7040; J7626; Q0163

== ENCOUNTER 2018-11-29 10:30 | Inpatient (IN) | payer OTHER ==
[~2018-11-29] VITALS: Ht 170.2 cm; Wt 128.0 kg
[~2018-11-29 10:30] MED LIST changes: -ATE25T PO; +BUDE10.2 INH; +CARB200T40 PO; -CARCD120C PO; +CIPR-230 PO; +COMIN IH; +FURO-149 PO; +IPRA4AER IH; +LISI-644 PO; -LISI40TA4 PO; +METO25TA6 PO; -OMEP-84 PO; +PRED10TA PO; -TEG100T PO; -ZOC40T PO
[2018-11-29] MEDS ORDERED: normal saline 1000ML IV soln IVB ONE (11:05)
--- NOTE | 2018-11-29 11:12 | NUR ---
PT TAKEN TO CT VIA GURNEY BY TECH.
--- NOTE | 2018-11-29 11:44 | NUR ---
NOTIFY PROVIDER THAT PT HAS BILATERAL LOWER EXTREMITY PITTING EDEMA. ALSO TAKES LASIX AT HOME. PT IS MAINTAINING A BP MAP OF 72. WILL HOLD THE FLUIDS FOR NOW.
[2018-11-29 11:50] LABS: ABG HCO3 22.5 mmol/L (22.0-26.0); ABG OXYGEN SATURATION 90.8 % (95-98); ABG PCO2 (T) 46.6 mmHg (35.0-45.0); ABG PH (T) 7.301 (7.350-7.450); ABG PO2 (T) 63.2 mmHg (83-108); FCOHb 0.3 % (0.5-1.5); FLOW 3 L/min; FO2Hb 90.5 % (94-100); RESPIRATORY RATE (OBSERVED) 20 b/min; TOTAL HEMOGLOBIN 11.6 G/dl (12.0-16.0)
[2018-11-29 12:10] LABS: BASOPHILS # (AUTO) 0.1 X10'3 (0-0.2); EOSINOPHILS # (AUTO) 0.1 X10'3 (0-0.9); EOSINOPHILS % (AUTO) 1.1 % (0-6); MONOCYTES # (AUTO) 1.1 X10'3 (0-0.9); MONOCYTES % (AUTO) 9.1 % (2-12)
[2018-11-29 12:12] LABS: HEMATOCRIT 35.2 % (35.0-45.0); HEMOGLOBIN 11.7 g/dl (12.0-16.0); LYMPHOCYTES # (AUTO) 0.8 X10'3 (1.1-4.8); LYMPHOCYTES % (AUTO) 7.2 % (21-51); MEAN CORPUSCULAR HEMOGLOBIN 31.2 PG (27.0-31.0); MEAN CORPUSCULAR HGB CONC 33.4 g/dL (33.0-36.5); MEAN CORPUSCULAR VOLUME 93.6 FL (78-98); MEAN PLATELET VOLUME 7.1 FL (7.4-10.4); NEUTROPHILS # (AUTO) 9.6 X10'3 (1.8-7.7); NEUTROPHILS % (AUTO) 81.6 % (42-75); PLATELET COUNT 595 X10'3 (140-440); RED BLOOD COUNT 3.76 X10'6 (4.20-5.60); WHITE BLOOD COUNT 11.8 X10'3 (4.5-11.0)
[2018-11-29 12:20] LABS: AMMONIA < 10 UMOL/L (11-32)
[2018-11-29 12:24] LABS: ALANINE AMINOTRANSFERASE 15 U/L (12-78); ALBUMIN 2.2 G/DL (3.4-5.0); ALBUMIN/GLOBULIN RATIO 0.4 (1.1-1.5); ALKALINE PHOSPHATASE 84 IU/L (46-116); ANION GAP 12 (8-16); ASPARTATE AMINO TRANSFERASE 17 U/L (10-37); BILIRUBIN,TOTAL 0.2 MG/DL (0.1-1.0); BLOOD UREA NITROGEN 53 MG/DL (7-18); BUN/CREATININE RATIO 21.5 (6.6-38.0); CALCIUM 9.5 MG/DL (8.5-10.1); CHLORIDE 101 MMOL/L (99-107); CREATININE 2.47 MG/DL (0.40-0.90); GLUCOSE 121 MG/DL (70-104); POTASSIUM 4.3 MMOL/L (3.5-5.1); SODIUM 137 MMOL/L (135-145); TOTAL CARBON DIOXIDE 24.2 MMOL/L (24-32); TOTAL PROTEIN 7.7 G/DL (6.4-8.2); eGFR 20 ML/MIN
[2018-11-29 12:26] LABS: TROPONIN I < 0.04 NG/ML (0.0-0.05)
[2018-11-29] MEDS ORDERED: cefepime 1GM in D5W 50mL 50 ML IV ONE (12:35)
[2018-11-29] MEDS ORDERED: cefepime 1GM/NS ADD-VANTAGE 100 ML IV ONE (12:44)
[2018-11-29 13:45] LABS: CLARITY,URINE CLOUDY (Clear); COLOR,URINE YELLOW (Yellow); GLUCOSE, URINE NEGATIVE (Neg); KETONES,URINE NEGATIVE (Neg); LEUKOCYTE ESTERASE ,URINE NEGATIVE (Neg); NITRITES, URINE NEGATIVE (Neg); OCCULT BLOOD,URINE NEGATIVE (Neg); PH,URINE 5.5 (4.8-8.0); PROTEIN,URINE NEGATIVE (Neg); UROBILINOGEN,URINE 0.2 E.U/dL (0.2-1.0)
--- NOTE | 2018-11-29 13:45 | NUR ---
called pharmacy for pt cefepime ,as per pharmacy they will bring it to the er.
[2018-11-29 13:50] LABS: UA COLLECTION TYPE STRAIGHT CATH
[2018-11-29 13:51] LABS: SQUAMOUS EPITHELIAL CELL,UR MODERATE /LPF (FEW)
[2018-11-29 13:52] LABS: BACTERIA,URINE 2+ /HPF (Neg); RBC,URINE 0-2 /HPF (0-2); WBC,URINE 0-4 /HPF (0-4)
[2018-11-29 13:54] LABS: AMORPHOUS URATES 2+
[2018-11-29 14:06] LABS: URINE AMPHETAMINE SCREEN NEGATIVE (Neg); URINE BARBITUATE SCREEN NEGATIVE (Neg); URINE BENZODIAZEPINES SCREEN NEGATIVE (Neg); URINE CANNABINOID SCREEN NEGATIVE (Neg); URINE COCAINE SCREEN NEGATIVE (Neg); URINE METHADONE SCREEN NEGATIVE (Neg); URINE OPIATE SCREEN NEGATIVE (Neg); URINE PHENCYCLIDINE SCREEN NEGATIVE (Neg)
--- NOTE | 2018-11-29 14:08 | NUR ---
dr rivas at bedside ,pt cpap removed as per dr rivas's orders for assessment of pt,pt saturated 96% on ra.
--- NOTE | 2018-11-29 14:34 | NUR ---
assumed care of pt from Paul ELLIOTT
[2018-11-29] MEDS ORDERED: acetaminophen 325mg tablet PO PRN ×2 (14:35)
[2018-11-29] MEDS ORDERED: acetaminophen 650mg rectal suppository RC PRN (14:35)
[2018-11-29] MEDS ORDERED: magnesium 4gm in 100ml NS 100 ML IV PRN (14:35)
[2018-11-29] MEDS: K and/or MAG REPLACEMENT MC SCH (14:35)
[2018-11-29] MEDS ORDERED: magnesium hydroxide 30ml (MOM) UD suspension PO PRN (14:35)
[2018-11-29] MEDS ORDERED: bisacodyl 10mg suppository rectal RC PRN (14:35)
[2018-11-29] MEDS ORDERED: HYDROcodone/acetaminophen 5mg/325mg tablet PO PRN (14:35)
[2018-11-29] MEDS ORDERED: potassium Cl 20 mEq SR tablet PO PRN ×2 (14:35)
[2018-11-29] MEDS ORDERED: diphenhydrAMINE 50 mg/ml inj IV PRN (14:35)
[2018-11-29] MEDS ORDERED: potassium CL 10mEq/100ml bag 100 ML IV PRN ×2 (14:35)
[2018-11-29] MEDS ORDERED: HYDROcodone/acetaminophen 10/325mg tab PO PRN (14:35)
[2018-11-29] MEDS ORDERED: magnesium Cl slow-release 64mg tablet PO PRN (14:35)
[2018-11-29] MEDS ORDERED: furosemide 10 MG/1 ML 10ml inj IV ONE ×2 (14:35→16:05)
[2018-11-29] MEDS ORDERED: ondansetron/PF 4mg/2ml inj IV PRN (14:35)
[2018-11-29] MEDS ORDERED: magnesium 2GM in 50ml NS 50 ML IV PRN (14:35)
[2018-11-29] MEDS ORDERED: morphine 2 MG/ML inj. syringe IV PRN ×2 (14:35)
--- NOTE | 2018-11-29 14:51 | NUR ---
PRIMARY RN WAS SENT TO BREAK. BP TRENDING LOW, PAGED THE HOSPITALIST. 84/40, 77/47, 110/47
--- NOTE | 2018-11-29 14:55 | NUR ---
RECEIVED TELEPHONE ORDER OF NS 500ML BOLUS AND CONTINUE BIPAP
[2018-11-29] MEDS ORDERED: normal saline 1000ml 1,000 ML IV ONE (15:00)
--- NOTE | 2018-11-29 15:15 | NUR ---
rt at bedside to do ABG
[2018-11-29 15:21] LABS: ABG BASE EXCESS -3.6 mmol/L (-2.0-3.0); ABG HCO3 22.7 mmol/L (22.0-26.0); ABG OXYGEN SATURATION 93.2 % (95-98); ABG PH (T) 7.311 (7.350-7.450); ABG PO2 (T) 71.8 mmHg (83-108); ALLEN'S TEST Positive; FCOHb 0.3 % (0.5-1.5); FMetHb 0.3 % (0.3-1.12); FO2Hb 92.6 % (94-100); MINUTE VOLUME 14 L/min; RESPIRATORY RATE 16 b/min; RESPIRATORY RATE (OBSERVED) 28 b/min; TIDAL VOLUME 1016 mL; TOTAL HEMOGLOBIN 11.6 G/dl (12.0-16.0)
[2018-11-29] MEDS: azithromycin 250mg tablet PO SCH (15:24)
--- NOTE | 2018-11-29 15:26 | NUR ---
lasix not given at this time due to low BP
[2018-11-29] MEDS: ipratropium/albuterol 3ml nebule NEB SCH ×3 (15:27→23:15)
--- NOTE | 2018-11-29 15:30 | NUR ---
PT TAKEN OFF OF BIPAP BY RT, PLACED ON 3 LITERS NASAL CANNULA, PT CONTINUES TO REST QUIETLY ON BED, RESP EVEN AND UNLABORED, SKIN P/W/D
[2018-11-29] MEDS ORDERED: cefepime 1GM in D5W 50mL 50 ML IV SCH (16:00)
[2018-11-29 16:08] LABS: PHENYTOIN (DILANTIN) 3.2 UG/ML (10.0-20.0)
--- NOTE | 2018-11-29 16:21 | NUR ---
REPORT CALLED TO CORDELL ELLIOTT
[2018-11-29] MEDS ORDERED: METO25TA6 PO (16:45)
[2018-11-29] MEDS ORDERED: FURO-149 PO (16:46)
[2018-11-29 17:00] VITALS: BP 113/62
[2018-11-29] MEDS: normal saline 1000ml 1,000 ML IV SCH (17:02)
[2018-11-29] MEDS: cefepime 1GM/NS ADD-VANTAGE 100 ML IV SCH (17:02)
--- NOTE | 2018-11-29 17:19 | NUR ---
Patient is admitted to room PCU 3024 from ED. I have received report from Ana Maria ELLIOTT and had the opportunity to ask questions and assume patient care. VSS @ 113/62 (12) 98.1 66 18 90 on 3L pain lvl 0/10, Tele monitor 48 applied and IV abx infusing, oriented pt to room, will continue to monitor.
--- NOTE | 2018-11-29 18:44 | NUR ---
Problems reprioritized. Patient report given, questions answered & plan of care reviewed with Genny ELLIOTT.
[2018-11-29 19:00] VITALS: BP 122/71
[2018-11-29] MEDS: furosemide 10 MG/1 ML 10ml inj IV SCH ×2 (20:00→23:20)
[2018-11-29] MEDS: heparin, porcine 5000 units/ml vial SQ SCH (22:26)
--- NOTE | 2018-11-29 22:27 | NUR ---
Pt self d/c IV earlier @ 2100. 4 attempts at IV starts two different RN's will attempt to have another RN attempt when they're available. Non-admin IV lasix at this time. Discussed with primary RN.
[2018-11-29 23:00] VITALS: BP 109/72
[2018-11-30] MEDS: cefepime 1GM/NS ADD-VANTAGE 100 ML IV SCH ×4 (01:34→23:18)
[2018-11-30] MEDS: ipratropium/albuterol 3ml nebule NEB SCH ×6 (02:52→23:00)
[2018-11-30 03:00] VITALS: BP 83/60
[2018-11-30 05:51] LABS: BASOPHILS # (AUTO) 0.1 X10'3 (0-0.2); BASOPHILS % (AUTO) 1.1 % (0-1); EOSINOPHILS # (AUTO) 0.2 X10'3 (0-0.9); EOSINOPHILS % (AUTO) 1.5 % (0-6); HEMATOCRIT 34.4 % (35.0-45.0); HEMOGLOBIN 11.5 g/dl (12.0-16.0); LYMPHOCYTES # (AUTO) 0.3 X10'3 (1.1-4.8); LYMPHOCYTES % (AUTO) 2.9 % (21-51); MEAN CORPUSCULAR HEMOGLOBIN 31.7 PG (27.0-31.0); MEAN CORPUSCULAR HGB CONC 33.3 g/dL (33.0-36.5); MEAN CORPUSCULAR VOLUME 95.1 FL (78-98); MEAN PLATELET VOLUME 7.3 FL (7.4-10.4); MONOCYTES % (AUTO) 8.7 % (2-12); NEUTROPHILS # (AUTO) 10.2 X10'3 (1.8-7.7); NEUTROPHILS % (AUTO) 85.8 % (42-75); PLATELET COUNT 586 X10'3 (140-440); RED BLOOD COUNT 3.62 X10'6 (4.20-5.60); RED CELL DISTRIBUTION WIDTH 14.7 % (11.5-14.5); WHITE BLOOD COUNT 11.8 X10'3 (4.5-11.0)
[2018-11-30 06:00] VITALS: BP 90/63
[2018-11-30 06:13] LABS: ALANINE AMINOTRANSFERASE 15 U/L (12-78); ALBUMIN 2.2 G/DL (3.4-5.0); ALBUMIN/GLOBULIN RATIO 0.4 (1.1-1.5); ALKALINE PHOSPHATASE 86 IU/L (46-116); ANION GAP 16 (8-16); ASPARTATE AMINO TRANSFERASE 13 U/L (10-37); BILIRUBIN,TOTAL 0.3 MG/DL (0.1-1.0); BLOOD UREA NITROGEN 52 MG/DL (7-18); BUN/CREATININE RATIO 24.8 (6.6-38.0); CALCIUM 8.6 MG/DL (8.5-10.1); CHLORIDE 101 MMOL/L (99-107); CHOL/HDL RATIO 4.9 (0.00-4.99); CHOLESTEROL 192 MG/DL (0-200); GLUCOSE 139 MG/DL (70-104); HDL CHOLESTEROL 39 MG/DL (35-60); LDL CHOLESTEROL 127 MG/DL (50-100); PHOSPHORUS 5.7 MG/DL (2.3-4.5); POTASSIUM 4.2 MMOL/L (3.5-5.1); SODIUM 140 MMOL/L (135-145); TOTAL CARBON DIOXIDE 23.4 MMOL/L (24-32); TOTAL PROTEIN 7.7 G/DL (6.4-8.2); TRIGLYCERIDES 132 MG/DL (20-135); eGFR 24 ML/MIN
[2018-11-30 07:00] LABS: ANISOCYTOSIS 1+; LARGE PLATELETS FEW; PLATELET ESTIMATE INCREASED
[2018-11-30] MEDS: heparin, porcine 5000 units/ml vial SQ SCH ×2 (07:42→19:31)
[2018-11-30] MEDS: azithromycin 250mg tablet PO SCH (07:42)
[2018-11-30 08:00] VITALS: BP_SYST 100; BP_SYST 106; BP_DIAS 62; BP_DIAS 69
[2018-11-30] MEDS: K and/or MAG REPLACEMENT MC SCH (08:00)
[2018-11-30] MEDS ORDERED: albuterol 2.5 MG/3 ML nebule NEB PRN (11:10)
--- NOTE | 2018-11-30 11:45 | NUR ---
Patient orthostatic BP at standing position was tried multiple times with no success. Was able to obtain supine and sitting.
[2018-11-30 12:08] LABS: PHENYTOIN (DILANTIN) 3.4 UG/ML (10.0-20.0)
[2018-11-30] MEDS: carBAMazepine 100mg chewable tablet PO SCH ×2 (13:43→19:30)
[2018-11-30] MEDS: nystatin 15 GM powder TP SCH ×2 (13:43→21:20)
[2018-11-30 15:00] VITALS: BP 108/60
[2018-11-30] MEDS: ipratropium/albuterol 3ml nebule IH SCH ×2 (15:03→20:21)
[2018-11-30 18:00] VITALS: BP 119/68
--- NOTE | 2018-11-30 18:55 | NUR ---
Problems reprioritized. Patient report given, questions answered & plan of care reviewed with Shiva ELLIOTT.
[2018-11-30] MEDS: lactobacillus rhamnosus 10,000 MMU CELLS/CAPSULE PO SCH (19:29)
[2018-11-30] MEDS: metoprolol tartrate 12.5mg (1/2 tablet) PO SCH (19:30)
[2018-11-30] MEDS: phenytoin sod ER 100mg capsule PO SCH (19:30)
[2018-11-30] MEDS: diphenhydrAMINE 25mg capsule PO PRN (19:31)
[2018-11-30] MEDS: budesonide 0.5mg/2ml UD nebule IH SCH (20:21)
[2018-11-30 22:00] VITALS: BP 98/48
--- NOTE | 2018-11-30 22:37 | NUR ---
patient has refused orthostatic vital signs
[2018-12-01] VITALS (7 sets, daily range): BP systolic 86–141; BP diastolic 43–75
[2018-12-01] MEDS: ipratropium/albuterol 3ml nebule NEB SCH ×3 (03:00→23:12)
[2018-12-01] MEDS: ipratropium/albuterol 3ml nebule IH PRN (04:56)
[2018-12-01 05:24] LABS: BASOPHILS # (AUTO) 0.1 X10'3 (0-0.2); BASOPHILS % (AUTO) 0.6 % (0-1); EOSINOPHILS # (AUTO) 0.4 X10'3 (0-0.9); EOSINOPHILS % (AUTO) 3.1 % (0-6); HEMATOCRIT 32.2 % (35.0-45.0); HEMOGLOBIN 10.6 g/dl (12.0-16.0); LYMPHOCYTES # (AUTO) 0.4 X10'3 (1.1-4.8); LYMPHOCYTES % (AUTO) 2.9 % (21-51); MEAN CORPUSCULAR HEMOGLOBIN 31.2 PG (27.0-31.0); MEAN CORPUSCULAR VOLUME 94.6 FL (78-98); MEAN PLATELET VOLUME 7.1 FL (7.4-10.4); MONOCYTES # (AUTO) 1.2 X10'3 (0-0.9); MONOCYTES % (AUTO) 9.2 % (2-12); NEUTROPHILS # (AUTO) 10.7 X10'3 (1.8-7.7); NEUTROPHILS % (AUTO) 84.2 % (42-75); PLATELET COUNT 474 X10'3 (140-440); WHITE BLOOD COUNT 12.7 X10'3 (4.5-11.0)
[2018-12-01 05:49] LABS: ALANINE AMINOTRANSFERASE 16 U/L (12-78); ALBUMIN/GLOBULIN RATIO 0.4 (1.1-1.5); ALKALINE PHOSPHATASE 77 IU/L (46-116); ANION GAP 12 (8-16); ASPARTATE AMINO TRANSFERASE 19 U/L (10-37); BILIRUBIN,TOTAL 0.3 MG/DL (0.1-1.0); BLOOD UREA NITROGEN 47 MG/DL (7-18); BUN/CREATININE RATIO 25.5 (6.6-38.0); CALCIUM 8.9 MG/DL (8.5-10.1); CHLORIDE 105 MMOL/L (99-107); CREATININE 1.84 MG/DL (0.40-0.90); GLUCOSE 136 MG/DL (70-104); MAGNESIUM 2.3 MG/DL (1.5-2.4); PHOSPHORUS 5.3 MG/DL (2.3-4.5); SODIUM 142 MMOL/L (135-145); TOTAL CARBON DIOXIDE 25.5 MMOL/L (24-32); TOTAL PROTEIN 7.1 G/DL (6.4-8.2); eGFR 28 ML/MIN
--- NOTE | 2018-12-01 06:25 | NUR ---
Problems reprioritized. Patient report given, questions answered & plan of care reviewed with Christy ELLIOTT.
--- NOTE | 2018-12-01 07:00 | NUR ---
Pt was found unresposive to voice and sternal rubs when getting AM VS, VS 73/36 72 26 97.4 82% on 2L, rapid response was called, BS was drawn and 132, switched to non rebreather at max rate, SpO2 increase to 94% pt more alert and able to return back to her baseline, stat ABGs and Lactic ordered by Dr. Osman and Rapid response team, Dr. Arellano was paged and notified as well, placed a continuous O2 monitor and will closely monitor.
[2018-12-01 07:01] LABS: ABG BASE EXCESS -6.2 mmol/L (-2.0-3.0); ABG HCO3 20.6 mmol/L (22.0-26.0); ABG OXYGEN SATURATION 96.7 % (95-98); ABG PCO2 (T) 46.3 mmHg (35.0-45.0); ABG PH (T) 7.266 (7.350-7.450); ABG PO2 (T) 99.8 mmHg (83-108); FCOHb 0.1 % (0.5-1.5); FLOW 15 L/min; FMetHb 0.1 % (0.3-1.12); FO2Hb 96.5 % (94-100); TOTAL HEMOGLOBIN 11.6 G/dl (12.0-16.0)
[2018-12-01] MEDS: budesonide 0.5mg/2ml UD nebule IH SCH ×2 (07:10→19:18)
[2018-12-01] MEDS: ipratropium/albuterol 3ml nebule IH SCH ×4 (07:10→19:00)
[2018-12-01] MEDS: azithromycin 250mg tablet PO SCH (07:38)
[2018-12-01] MEDS: lactobacillus rhamnosus 10,000 MMU CELLS/CAPSULE PO SCH ×2 (07:39→21:29)
[2018-12-01] MEDS: heparin, porcine 5000 units/ml vial SQ SCH ×2 (07:39→21:30)
[2018-12-01] MEDS: nystatin 15 GM powder TP SCH ×3 (07:39→21:32)
[2018-12-01] MEDS: cefepime 1GM/NS ADD-VANTAGE 100 ML IV SCH ×2 (07:41→16:29)
[2018-12-01] MEDS: K and/or MAG REPLACEMENT MC SCH (08:00)
[2018-12-01] MEDS: lisinopril 10 MG tablet PO SCH (08:00)
[2018-12-01] MEDS: metoprolol tartrate 12.5mg (1/2 tablet) PO SCH ×2 (08:00→20:00)
[2018-12-01] MEDS: furosemide 10 MG/1 ML 10ml inj IV SCH (09:12)
[2018-12-01] MEDS: carBAMazepine 100mg chewable tablet PO SCH ×2 (09:12→21:30)
[2018-12-01] MEDS: phenytoin sod ER 100mg capsule PO SCH ×2 (09:13→21:29)
[2018-12-01] MEDS: normal saline 1000ml 1,000 ML IV SCH (14:34)
--- NOTE | 2018-12-01 15:37 | NUR ---
Unable to get Ortho VS, pt is unsteady on her feet to get a BP reading Addendum: 12/01/18 at 1538 by Christy Rogers RN Amended: Links added.
--- NOTE | 2018-12-01 17:56 | NUR ---
PAGER ID: [phone] MESSAGE: [phone] SardiniaMiguel felizin: Pt is requesting prn Lactaid for her meals, she states she is lactose intolerant. Thanks Christy Addendum: 12/01/18 at 1827 by Christy Rogers RN Received orders from Dr. Arellano to start Lactaid PRN
--- NOTE | 2018-12-01 18:10 | NUR ---
Patient in room PCU 3024A I have received report from LEXI Sneed and had the opportunity to ask questions and assume patient care. Pt is A& O X4, denies CP, n/v, dizziness, and rated pain 7/10. Pt is feeling cold and informed me that she is lactose intolerance. Naren placed order for Lactase 3,000 units. Will continue to monitor
--- NOTE | 2018-12-01 18:46 | NUR ---
Problems reprioritized. Patient report given, questions answered & plan of care reviewed with Boby Dallas.
[2018-12-02] VITALS (8 sets, daily range): BP systolic 83–136; BP diastolic 40–82
[2018-12-02] MEDS: cefepime 1GM/NS ADD-VANTAGE 100 ML IV SCH ×4 (00:48→20:41)
[2018-12-02] MEDS: ipratropium/albuterol 3ml nebule NEB SCH (03:31)
[2018-12-02] MEDS: mag hydrox/Alum hydrox/simeth 30ml oral suspension PO PRN (05:28)
[2018-12-02 05:39] LABS: BASOPHILS % (AUTO) 0.4 % (0-1); EOSINOPHILS # (AUTO) 0.6 X10'3 (0-0.9); HEMATOCRIT 30.8 % (35.0-45.0); HEMOGLOBIN 10.3 g/dl (12.0-16.0); LYMPHOCYTES # (AUTO) 0.6 X10'3 (1.1-4.8); LYMPHOCYTES % (AUTO) 5.1 % (21-51); MEAN CORPUSCULAR HGB CONC 33.5 g/dL (33.0-36.5); MEAN CORPUSCULAR VOLUME 95.4 FL (78-98); MEAN PLATELET VOLUME 7.1 FL (7.4-10.4); MONOCYTES # (AUTO) 1.2 X10'3 (0-0.9); MONOCYTES % (AUTO) 10.4 % (2-12); NEUTROPHILS # (AUTO) 9.1 X10'3 (1.8-7.7); NEUTROPHILS % (AUTO) 79.1 % (42-75); PLATELET COUNT 456 X10'3 (140-440); RED BLOOD COUNT 3.22 X10'6 (4.20-5.60); RED CELL DISTRIBUTION WIDTH 14.9 % (11.5-14.5); WHITE BLOOD COUNT 11.6 X10'3 (4.5-11.0)
[2018-12-02 06:16] LABS: ALANINE AMINOTRANSFERASE 16 U/L (12-78); ALBUMIN/GLOBULIN RATIO 0.4 (1.1-1.5); ALKALINE PHOSPHATASE 76 IU/L (46-116); ANION GAP 12 (8-16); ASPARTATE AMINO TRANSFERASE 20 U/L (10-37); BILIRUBIN,TOTAL 0.2 MG/DL (0.1-1.0); BLOOD UREA NITROGEN 48 MG/DL (7-18); BUN/CREATININE RATIO 28.6 (6.6-38.0); CALCIUM 8.4 MG/DL (8.5-10.1); CHLORIDE 104 MMOL/L (99-107); CREATININE 1.68 MG/DL (0.40-0.90); GLUCOSE 124 MG/DL (70-104); MAGNESIUM 2.1 MG/DL (1.5-2.4); PHOSPHORUS 4.4 MG/DL (2.3-4.5); POTASSIUM 3.8 MMOL/L (3.5-5.1); SODIUM 141 MMOL/L (135-145); TOTAL CARBON DIOXIDE 24.6 MMOL/L (24-32); TOTAL PROTEIN 7.1 G/DL (6.4-8.2); eGFR 31 ML/MIN
--- NOTE | 2018-12-02 06:32 | NUR ---
Problems reprioritized. Patient report given, questions answered & plan of care reviewed with LEXI Lindsay. Pt stable at shift change
[2018-12-02] MEDS: budesonide 0.5mg/2ml UD nebule IH SCH ×2 (07:34→19:20)
[2018-12-02] MEDS: ipratropium/albuterol 3ml nebule IH SCH ×4 (07:35→19:20)
[2018-12-02] MEDS: K and/or MAG REPLACEMENT MC SCH (08:00)
[2018-12-02] MEDS: metoprolol tartrate 12.5mg (1/2 tablet) PO SCH ×2 (08:00→20:44)
[2018-12-02] MEDS: furosemide 10 MG/1 ML 10ml inj IV SCH (08:00)
[2018-12-02] MEDS: lisinopril 10 MG tablet PO SCH (08:00)
[2018-12-02] MEDS: nystatin 15 GM powder TP SCH ×3 (08:00→20:48)
--- NOTE | 2018-12-02 09:05 | NUR ---
Patient was found in room, unable to arouse. Beverly charge nurse was in room giving patient sternal rub, Dr Copeland and I were walking in to see patient at this time. Vital signs were taken; BP 95/58 HR:77 O2:[address] Copeland ordered Bipap to be put back on. Patients O2 started to rise within about 4 minutes. Patient O2 saturation at 94% 10 minutes after occurrence.
[2018-12-02] MEDS: azithromycin 250mg tablet PO SCH (12:04)
[2018-12-02] MEDS: lactobacillus rhamnosus 10,000 MMU CELLS/CAPSULE PO SCH ×2 (12:04→20:42)
[2018-12-02] MEDS: heparin, porcine 5000 units/ml vial SQ SCH ×2 (12:05→20:41)
[2018-12-02] MEDS: phenytoin sod ER 100mg capsule PO SCH ×2 (12:12→20:43)
[2018-12-02] MEDS: carBAMazepine 100mg chewable tablet PO SCH ×2 (12:13→20:44)
[2018-12-02] MEDS ORDERED: VANCOMYCIN LEVEL IV ONE (15:30)
--- NOTE | 2018-12-02 18:30 | NUR ---
Problems reprioritized. Patient report given, questions answered & plan of care reviewed with Windy ELLIOTT.
--- NOTE | 2018-12-02 18:30 | NUR ---
Patient in room PCU 3024. I have received report from LEXI Lindsay and had the opportunity to ask questions and assume patient care.
[2018-12-03 03:00] VITALS: BP 89/70
--- NOTE | 2018-12-03 06:30 | NUR ---
Problems reprioritized. Patient report given, questions answered & plan of care reviewed with LEXI Cool.
[2018-12-03 07:00] VITALS: BP 104/57
[2018-12-03] MEDS: budesonide 0.5mg/2ml UD nebule IH SCH ×2 (07:15→20:52)
[2018-12-03] MEDS: ipratropium/albuterol 3ml nebule IH SCH ×4 (07:15→20:52)
[2018-12-03] MEDS: K and/or MAG REPLACEMENT MC SCH (08:00)
[2018-12-03] MEDS: lisinopril 10 MG tablet PO SCH (08:00)
[2018-12-03] MEDS: furosemide 10 MG/1 ML 10ml inj IV SCH (08:00)
[2018-12-03] MEDS: metoprolol tartrate 12.5mg (1/2 tablet) PO SCH ×2 (08:00→20:00)
[2018-12-03 08:13] LABS: ALANINE AMINOTRANSFERASE 16 U/L (12-78); ALBUMIN 1.9 G/DL (3.4-5.0); ALBUMIN/GLOBULIN RATIO 0.4 (1.1-1.5); ALKALINE PHOSPHATASE 71 IU/L (46-116); ANION GAP 10 (8-16); ASPARTATE AMINO TRANSFERASE 21 U/L (10-37); BILIRUBIN,TOTAL 0.3 MG/DL (0.1-1.0); BLOOD UREA NITROGEN 44 MG/DL (7-18); BUN/CREATININE RATIO 32.6 (6.6-38.0); CALCIUM 8.9 MG/DL (8.5-10.1); CHLORIDE 106 MMOL/L (99-107); CREATININE 1.35 MG/DL (0.40-0.90); GLUCOSE 111 MG/DL (70-104); MAGNESIUM 2.5 MG/DL (1.5-2.4); PHOSPHORUS 3.2 MG/DL (2.3-4.5); POTASSIUM 3.9 MMOL/L (3.5-5.1); SODIUM 142 MMOL/L (135-145); TOTAL CARBON DIOXIDE 26.5 MMOL/L (24-32); TOTAL PROTEIN 7.1 G/DL (6.4-8.2); eGFR 39 ML/MIN
[2018-12-03 08:20] LABS: BASOPHILS # (AUTO) 0.1 X10'3 (0-0.2); EOSINOPHILS # (AUTO) 0.5 X10'3 (0-0.9); EOSINOPHILS % (AUTO) 4.8 % (0-6); HEMATOCRIT 32.1 % (35.0-45.0); HEMOGLOBIN 10.8 g/dl (12.0-16.0); LYMPHOCYTES # (AUTO) 0.6 X10'3 (1.1-4.8); LYMPHOCYTES % (AUTO) 5.1 % (21-51); MEAN CORPUSCULAR HEMOGLOBIN 31.9 PG (27.0-31.0); MEAN CORPUSCULAR HGB CONC 33.6 g/dL (33.0-36.5); MEAN CORPUSCULAR VOLUME 94.9 FL (78-98); MEAN PLATELET VOLUME 7.3 FL (7.4-10.4); MONOCYTES # (AUTO) 1.2 X10'3 (0-0.9); MONOCYTES % (AUTO) 11.4 % (2-12); NEUTROPHILS # (AUTO) 8.5 X10'3 (1.8-7.7); NEUTROPHILS % (AUTO) 77.7 % (42-75); PLATELET COUNT 412 X10'3 (140-440); RED BLOOD COUNT 3.39 X10'6 (4.20-5.60); WHITE BLOOD COUNT 10.9 X10'3 (4.5-11.0)
[2018-12-03] MEDS: cefepime 1GM/NS ADD-VANTAGE 100 ML IV SCH ×3 (09:00→23:38)
[2018-12-03] MEDS: phenytoin sod ER 100mg capsule PO SCH ×2 (09:02→20:20)
[2018-12-03] MEDS: carBAMazepine 100mg chewable tablet PO SCH ×2 (09:03→20:20)
[2018-12-03] MEDS: lactobacillus rhamnosus 10,000 MMU CELLS/CAPSULE PO SCH ×2 (09:04→20:20)
[2018-12-03] MEDS: azithromycin 250mg tablet PO SCH (09:04)
[2018-12-03] MEDS: nystatin 15 GM powder TP SCH ×3 (09:08→20:20)
[2018-12-03] MEDS: heparin, porcine 5000 units/ml vial SQ SCH ×2 (09:09→20:19)
[2018-12-03 11:00] VITALS: BP 100/64
[2018-12-03] MEDS: normal saline 1000ml 1,000 ML IV SCH (14:36)
[2018-12-03 15:00] VITALS: BP 100/61
[2018-12-03 18:00] VITALS: BP 106/88
--- NOTE | 2018-12-03 18:18 | NUR ---
Orientee documentation: I have reviewed and agree with interventions, assessments performed and documented by Teri ELLIOTT. [place] Medication Administration: For this medication-pass time frame, medication were reviewed, dispensed, administered and documented per hospital policy by Teri ELLIOTT .
--- NOTE | 2018-12-03 18:39 | NUR ---
Problems reprioritized. Patient report given, questions answered & plan of care reviewed with Donna ELLIOTT.
[2018-12-03] MEDS: diphenhydrAMINE 25mg capsule PO PRN (20:20)
[2018-12-03 22:00] VITALS: BP 105/58
--- NOTE | 2018-12-03 22:42 | NUR ---
Patient in room U 3024. I have received report from LEXI Cool and had the opportunity to ask questions and assume patient care. Addendum: 12/03/18 at 2245 by Donna Chance RN Amended: Links added.
[2018-12-04] MEDS: ipratropium/albuterol 3ml nebule IH PRN (00:14)
[2018-12-04 02:00] VITALS: BP 117/71
[2018-12-04] MEDS: mag hydrox/Alum hydrox/simeth 30ml oral suspension PO PRN ×2 (02:01→16:44)
[2018-12-04 05:27] LABS: BASOPHILS # (AUTO) 0.1 X10'3 (0-0.2); BASOPHILS % (AUTO) 0.6 % (0-1); EOSINOPHILS # (AUTO) 0.4 X10'3 (0-0.9); EOSINOPHILS % (AUTO) 3.3 % (0-6); HEMATOCRIT 30.1 % (35.0-45.0); HEMOGLOBIN 10.2 g/dl (12.0-16.0); LYMPHOCYTES # (AUTO) 0.8 X10'3 (1.1-4.8); LYMPHOCYTES % (AUTO) 6.8 % (21-51); MEAN CORPUSCULAR HGB CONC 33.8 g/dL (33.0-36.5); MEAN CORPUSCULAR VOLUME 94.7 FL (78-98); MEAN PLATELET VOLUME 7.1 FL (7.4-10.4); MONOCYTES # (AUTO) 1.4 X10'3 (0-0.9); MONOCYTES % (AUTO) 12.2 % (2-12); NEUTROPHILS # (AUTO) 8.7 X10'3 (1.8-7.7); NEUTROPHILS % (AUTO) 77.1 % (42-75); PLATELET COUNT 394 X10'3 (140-440); RED BLOOD COUNT 3.18 X10'6 (4.20-5.60); RED CELL DISTRIBUTION WIDTH 14.7 % (11.5-14.5); WHITE BLOOD COUNT 11.3 X10'3 (4.5-11.0)
[2018-12-04 05:56] LABS: ALANINE AMINOTRANSFERASE 17 U/L (12-78); ALBUMIN 1.8 G/DL (3.4-5.0); ALBUMIN/GLOBULIN RATIO 0.4 (1.1-1.5); ALKALINE PHOSPHATASE 68 IU/L (46-116); ANION GAP 10 (8-16); ASPARTATE AMINO TRANSFERASE 21 U/L (10-37); BILIRUBIN,TOTAL 0.2 MG/DL (0.1-1.0); BLOOD UREA NITROGEN 35 MG/DL (7-18); BUN/CREATININE RATIO 32.4 (6.6-38.0); CALCIUM 8.2 MG/DL (8.5-10.1); CHLORIDE 105 MMOL/L (99-107); CREATININE 1.08 MG/DL (0.40-0.90); GLUCOSE 126 MG/DL (70-104); MAGNESIUM 2.1 MG/DL (1.5-2.4); PHOSPHORUS 2.5 MG/DL (2.3-4.5); POTASSIUM 3.5 MMOL/L (3.5-5.1); SODIUM 141 MMOL/L (135-145); TOTAL CARBON DIOXIDE 26.3 MMOL/L (24-32); TOTAL PROTEIN 6.8 G/DL (6.4-8.2); eGFR 51 ML/MIN
--- NOTE | 2018-12-04 06:20 | NUR ---
Problems reprioritized. Patient report given, questions answered & plan of care reviewed with LEXI Cool. Addendum: 12/04/18 at 0621 by Donna Chance RN Amended: Links added.
--- NOTE | 2018-12-04 06:41 | NUR ---
Patient in room PCU 3024. I have received report from Donna ELLIOTT and had the opportunity to ask questions and assume patient care.
[2018-12-04 07:00] VITALS: BP 124/76
[2018-12-04] MEDS: ipratropium/albuterol 3ml nebule IH SCH ×4 (07:14→19:10)
[2018-12-04] MEDS: budesonide 0.5mg/2ml UD nebule IH SCH ×2 (07:14→19:11)
[2018-12-04 08:00] VITALS: BP_SYST 107; BP_SYST 109; BP_DIAS 63; BP_DIAS 82
[2018-12-04] MEDS: K and/or MAG REPLACEMENT MC SCH (08:00)
[2018-12-04] MEDS: furosemide 10 MG/1 ML 10ml inj IV SCH (08:16)
[2018-12-04] MEDS: cefepime 1GM/NS ADD-VANTAGE 100 ML IV SCH ×2 (08:20→16:44)
[2018-12-04] MEDS: lactobacillus rhamnosus 10,000 MMU CELLS/CAPSULE PO SCH ×2 (08:20→20:56)
[2018-12-04] MEDS: phenytoin sod ER 100mg capsule PO SCH ×2 (08:22→20:57)
[2018-12-04] MEDS: metoprolol tartrate 12.5mg (1/2 tablet) PO SCH ×2 (08:24→20:57)
[2018-12-04] MEDS: carBAMazepine 100mg chewable tablet PO SCH ×2 (08:24→20:58)
[2018-12-04] MEDS: lisinopril 10 MG tablet PO SCH (08:25)
[2018-12-04] MEDS: azithromycin 250mg tablet PO SCH (08:26)
[2018-12-04] MEDS: heparin, porcine 5000 units/ml vial SQ SCH ×2 (08:27→20:58)
[2018-12-04] MEDS: nystatin 15 GM powder TP SCH ×3 (08:29→21:06)
[2018-12-04] MEDS ORDERED: GLUC-237 PO (10:02)
[2018-12-04] MEDS ORDERED: GREE150C PO (10:02)
[2018-12-04 13:00] VITALS: BP 92/63
--- NOTE | 2018-12-04 16:09 | NUR ---
Initial: Pt admit w/ dizziness; possible CHF and acute respiratory failure per MD note. Hx COPD and recurrent PNA; cleared for normal PO by SP. Pt 50% avg carb controlled/heart healthy meals not meeting needs given wt. Pt seen by RD for written/verbal high protein ed w/ RD contact information provided. Pt agrees to ensure high protein TIDWM; pending MD verification prior to sending on trays. LBM 12/03. Pt reports persistent reflux since admit receiving maalox. Will continue to monitor. Rec: 1. continue carb controlled/heart healthy diet per MD 2. ensure high protein TIDWM; pending MD verification prior to sending on trays 3. wt per rx Addendum: 12/04/18 at [address] Amended: Links added.
--- NOTE | 2018-12-04 17:25 | NUR ---
Patient will not lay in bed for orthostatic vitals, will obtain sitting and standing.
[2018-12-04 18:00] VITALS: BP 109/63
[2018-12-04] MEDS: lactose-reduced food (Ensure High Protein) 237ml bottle PO SCH (18:00)
--- NOTE | 2018-12-04 18:17 | NUR ---
Problems reprioritized. Patient report given, questions answered & plan of care reviewed with Abby Dallas. Patient stable at transfer of care.
--- NOTE | 2018-12-04 18:28 | NUR ---
Patient in room PCU 3024. I have received report from Silvina ELLIOTT and had the opportunity to ask questions and assume patient care.
[2018-12-04] MEDS ORDERED: potassium Cl 20 mEq SR tablet PO PRN ×2 (20:10)
[2018-12-04] MEDS ORDERED: potassium CL 10mEq/100ml bag 100 ML IV PRN (20:10)
[2018-12-04] MEDS ORDERED: magnesium Cl slow-release 64mg tablet PO PRN (20:10)
[2018-12-04] MEDS ORDERED: magnesium 4gm in 100ml NS 100 ML IV PRN (20:10)
[2018-12-04] MEDS: diphenhydrAMINE 25mg capsule PO PRN (20:56)
[2018-12-04 22:00] VITALS: BP 107/68
[2018-12-05] MEDS: mag hydrox/Alum hydrox/simeth 30ml oral suspension PO PRN ×3 (01:41→19:09)
[2018-12-05 02:00] VITALS: BP 129/76
[2018-12-05 05:44] LABS: BASOPHILS # (AUTO) 0.2 X10'3 (0-0.2); BASOPHILS % (AUTO) 1.2 % (0-1); EOSINOPHILS # (AUTO) 0.4 X10'3 (0-0.9); EOSINOPHILS % (AUTO) 2.7 % (0-6); LYMPHOCYTES % (AUTO) 7.7 % (21-51); MEAN CORPUSCULAR HEMOGLOBIN 31.6 PG (27.0-31.0); MEAN CORPUSCULAR HGB CONC 33.3 g/dL (33.0-36.5); MEAN CORPUSCULAR VOLUME 95.1 FL (78-98); MEAN PLATELET VOLUME 7.4 FL (7.4-10.4); MONOCYTES # (AUTO) 1.5 X10'3 (0-0.9); MONOCYTES % (AUTO) 11.1 % (2-12); NEUTROPHILS # (AUTO) 10.4 X10'3 (1.8-7.7); NEUTROPHILS % (AUTO) 77.3 % (42-75); PLATELET COUNT 386 X10'3 (140-440); RED BLOOD COUNT 3.47 X10'6 (4.20-5.60); RED CELL DISTRIBUTION WIDTH 14.9 % (11.5-14.5); WHITE BLOOD COUNT 13.4 X10'3 (4.5-11.0)
--- NOTE | 2018-12-05 06:25 | NUR ---
Problems reprioritized. Patient report given, questions answered & plan of care reviewed with Silvina ELLIOTT.
[2018-12-05 06:32] LABS: ALANINE AMINOTRANSFERASE 18 U/L (12-78); ALBUMIN/GLOBULIN RATIO 0.4 (1.1-1.5); ALKALINE PHOSPHATASE 70 IU/L (46-116); ANION GAP 11 (8-16); ASPARTATE AMINO TRANSFERASE 19 U/L (10-37); BILIRUBIN,TOTAL 0.3 MG/DL (0.1-1.0); BLOOD UREA NITROGEN 30 MG/DL (7-18); BUN/CREATININE RATIO 32.6 (6.6-38.0); CALCIUM 8.8 MG/DL (8.5-10.1); CHLORIDE 106 MMOL/L (99-107); CREATININE 0.92 MG/DL (0.40-0.90); GLUCOSE 128 MG/DL (70-104); MAGNESIUM 2.5 MG/DL (1.5-2.4); PHOSPHORUS 2.2 MG/DL (2.3-4.5); POTASSIUM 3.7 MMOL/L (3.5-5.1); SODIUM 142 MMOL/L (135-145); TOTAL PROTEIN 7.3 G/DL (6.4-8.2); eGFR 61 ML/MIN
[2018-12-05 07:00] VITALS: BP 107/58
[2018-12-05] MEDS: ipratropium/albuterol 3ml nebule IH SCH ×4 (07:27→19:49)
[2018-12-05] MEDS: budesonide 0.5mg/2ml UD nebule IH SCH ×2 (07:27→19:48)
[2018-12-05] MEDS: cefepime 1GM/NS ADD-VANTAGE 100 ML IV SCH ×3 (07:35→16:15)
[2018-12-05] MEDS: furosemide 40mg/4ml inj IV SCH (07:35)
[2018-12-05] MEDS: phenytoin sod ER 100mg capsule PO SCH ×2 (07:36→19:08)
[2018-12-05] MEDS: lactobacillus rhamnosus 10,000 MMU CELLS/CAPSULE PO SCH ×2 (07:36→19:08)
[2018-12-05] MEDS: metoprolol tartrate 12.5mg (1/2 tablet) PO SCH (07:37)
[2018-12-05] MEDS: lisinopril 10 MG tablet PO SCH (07:38)
[2018-12-05] MEDS: carBAMazepine 100mg chewable tablet PO SCH ×2 (07:38→19:08)
[2018-12-05] MEDS: nystatin 15 GM powder TP SCH ×3 (07:39→21:22)
[2018-12-05] MEDS: heparin, porcine 5000 units/ml vial SQ SCH ×2 (07:39→19:09)
[2018-12-05 08:00] VITALS: BP_SYST 103; BP_SYST 113; BP_DIAS 71; BP_DIAS 75
[2018-12-05] MEDS: K and/or MAG REPLACEMENT MC SCH (08:00)
[2018-12-05] MEDS: lactose-reduced food (Ensure High Protein) 237ml bottle PO SCH ×2 (08:00→18:00)
--- NOTE | 2018-12-05 10:08 | NUR ---
Paged Dr. Singletary PAGER ID: [phone] MESSAGE: Anastacio [phone]. Patient having multiple episodes of diarrhea. Would you like a c-diff sample or Imodium? Silvina [phone]
[2018-12-05] MEDS ORDERED: [UNRECOGNIZED DRUG - CODE] (11:37)
--- NOTE | 2018-12-05 11:41 | NUR ---
Paged Dr. Singletary PAGER ID: [phone] MESSAGE: [phone] [id number], Benjamin. Patient has brought in home lactaid and other OTC vitamins, would like to have them continued so she can take them while here. They are in the med rec, now and being sent to pharmacy. Silvina [phone]
--- NOTE | 2018-12-05 12:08 | NUR ---
Patient refusing to wear bipap. MD educated as well as RN, patient still refusing. Will continue to monitor.
[2018-12-05] MEDS: normal saline 1000ml 1,000 ML IV SCH (14:34)
[2018-12-05] MEDS ORDERED: diltiazem 5mg/ml 5ml inj. IV ONE ×2 (16:00)
[2018-12-05] MEDS ORDERED: methylPREDNISolone sod succ 125mg/2ml vial IV ONE (16:05)
[2018-12-05] MEDS ORDERED: levetiracetam 250mg tablet PO ONE (16:05)
[2018-12-05] MEDS: metoprolol succinate 25mg (24-HOUR) SR. Tablet PO SCH (16:53)
[2018-12-05 18:00] VITALS: BP 101/65
[2018-12-05] MEDS: methylPREDNISolone sod succ 125mg/2ml vial IV SCH (19:09)
[2018-12-05] MEDS: levetiracetam 250mg tablet PO SCH (19:10)
[2018-12-05 20:00] VITALS: BP_SYST 101; BP_SYST 102; BP_SYST 104; BP_DIAS 57; BP_DIAS 63; BP_DIAS 64
[2018-12-05 22:00] VITALS: BP 106/70
[2018-12-06] VITALS (8 sets, daily range): BP systolic 92–160; BP diastolic 53–79
[2018-12-06] MEDS: cefepime 1GM/NS ADD-VANTAGE 100 ML IV SCH ×3 (01:00→16:36)
[2018-12-06] MEDS: methylPREDNISolone sod succ 125mg/2ml vial IV SCH ×4 (02:40→21:38)
[2018-12-06] MEDS: mag hydrox/Alum hydrox/simeth 30ml oral suspension PO PRN (05:20)
--- NOTE | 2018-12-06 05:34 | NUR ---
Patient in room PCU 3024. I have received report from Silvina ELLIOTT and had the opportunity to ask questions and assume patient care.
[2018-12-06 05:46] LABS: BASOPHILS % (AUTO) 0.2 % (0-1); EOSINOPHILS % (AUTO) 0.1 % (0-6); HEMATOCRIT 33.1 % (35.0-45.0); HEMOGLOBIN 10.9 g/dl (12.0-16.0); LYMPHOCYTES % (AUTO) 6.4 % (21-51); MEAN CORPUSCULAR HEMOGLOBIN 31.5 PG (27.0-31.0); MEAN CORPUSCULAR VOLUME 95.4 FL (78-98); MEAN PLATELET VOLUME 7.2 FL (7.4-10.4); MONOCYTES # (AUTO) 1.1 X10'3 (0-0.9); MONOCYTES % (AUTO) 7.2 % (2-12); NEUTROPHILS # (AUTO) 13.3 X10'3 (1.8-7.7); NEUTROPHILS % (AUTO) 86.1 % (42-75); PLATELET COUNT 393 X10'3 (140-440); RED BLOOD COUNT 3.47 X10'6 (4.20-5.60); RED CELL DISTRIBUTION WIDTH 14.8 % (11.5-14.5); WHITE BLOOD COUNT 15.5 X10'3 (4.5-11.0)
--- NOTE | 2018-12-06 05:58 | NUR ---
[place] Medication Administration: For this medication-pass time frame, all medication were reviewed, dispensed, administered and documented per hospital policy by Alta ELLIOTT. Orientee documentation: I have reviewed interventions, assessments performed and documented by Alta ELLIOTT.
--- NOTE | 2018-12-06 05:59 | NUR ---
Problems reprioritized. Patient report given, questions answered & plan of care reviewed with Silvina ELLIOTT.
[2018-12-06 06:04] LABS: ALANINE AMINOTRANSFERASE 15 U/L (12-78); ALBUMIN/GLOBULIN RATIO 0.4 (1.1-1.5); ALKALINE PHOSPHATASE 70 IU/L (46-116); ANION GAP 7 (8-16); ASPARTATE AMINO TRANSFERASE 15 U/L (10-37); BILIRUBIN,TOTAL 0.2 MG/DL (0.1-1.0); BLOOD UREA NITROGEN 34 MG/DL (7-18); BUN/CREATININE RATIO 35.4 (6.6-38.0); CALCIUM 8.4 MG/DL (8.5-10.1); CHLORIDE 105 MMOL/L (99-107); CREATININE 0.96 MG/DL (0.40-0.90); GLUCOSE 128 MG/DL (70-104); MAGNESIUM 2.4 MG/DL (1.5-2.4); PHOSPHORUS 2.4 MG/DL (2.3-4.5); POTASSIUM 4.2 MMOL/L (3.5-5.1); SODIUM 140 MMOL/L (135-145); TOTAL CARBON DIOXIDE 27.9 MMOL/L (24-32); TOTAL PROTEIN 7.4 G/DL (6.4-8.2); eGFR 59 ML/MIN
[2018-12-06] MEDS: budesonide 0.5mg/2ml UD nebule IH SCH ×2 (07:23→20:16)
[2018-12-06] MEDS: ipratropium/albuterol 3ml nebule IH SCH ×4 (07:23→20:16)
[2018-12-06] MEDS: furosemide 40mg/4ml inj IV SCH (07:36)
[2018-12-06] MEDS: normal saline 1000ml 1,000 ML IV SCH (07:38)
[2018-12-06] MEDS: lactobacillus rhamnosus 10,000 MMU CELLS/CAPSULE PO SCH ×2 (07:38→20:00)
[2018-12-06] MEDS: phenytoin sod ER 100mg capsule PO SCH ×2 (07:38→20:00)
[2018-12-06] MEDS: carBAMazepine 100mg chewable tablet PO SCH ×2 (07:39→20:00)
[2018-12-06] MEDS: lisinopril 10 MG tablet PO SCH (07:39)
[2018-12-06] MEDS: metoprolol succinate 25mg (24-HOUR) SR. Tablet PO SCH (07:39)
[2018-12-06] MEDS: heparin, porcine 5000 units/ml vial SQ SCH (07:40)
[2018-12-06] MEDS: levetiracetam 250mg tablet PO SCH ×2 (07:40→20:00)
[2018-12-06] MEDS: K and/or MAG REPLACEMENT MC SCH (08:00)
[2018-12-06] MEDS: nystatin 15 GM powder TP SCH ×3 (08:00→21:38)
[2018-12-06] MEDS: lactose-reduced food (Ensure High Protein) 237ml bottle PO SCH ×3 (08:00→18:00)
[2018-12-06] MEDS ORDERED: iohexol 350MG/ML 100ml bottle IV ONE (09:28)
--- NOTE | 2018-12-06 09:34 | NUR ---
Patient left the floor for her CT.
[2018-12-06 10:15] LABS: ABG BASE EXCESS -0.7 mmol/L (-2.0-3.0); ABG HCO3 25.4 mmol/L (22.0-26.0); ABG OXYGEN SATURATION 91.9 % (95-98); ABG PCO2 (T) 48.3 mmHg (35.0-45.0); ABG PH (T) 7.339 (7.350-7.450); ABG PO2 (T) 62.5 mmHg (83-108); ALLEN'S TEST Positive; FCOHb 0.2 % (0.5-1.5); FLOW 3 L/min; FO2Hb 91.7 % (94-100); TOTAL HEMOGLOBIN 11.7 G/dl (12.0-16.0)
[2018-12-06] MEDS ORDERED: heparin 10,000 units/1 ML INJ IV PRN (10:40)
[2018-12-06] MEDS ORDERED: heparin 10,000 units/1 ML INJ IV ONE ×2 (10:40→11:35)
--- NOTE | 2018-12-06 10:52 | NUR ---
Spoke with MD, starting patient on heparin after thoracentesis. Dr. Singletary has placed a stat thora order in for the patiet and we will continue to monitor.
[2018-12-06 11:23] LABS: PARTIAL THROMBOPLASTIN TIME 29 SECONDS (22-32)
--- NOTE | 2018-12-06 11:23 | NUR ---
Called [facility] regarding the stat thora and was informed that they have a few urgent cases to be done before this patient and then they will be up to assess. I also explained that the patient has a PE and is going to be started on a heparin drip immediately after the thora. Spoke with Dr. Singletary regarding the ETA update and was instructed to monitor the patient and start the heparin directly after the thora.
--- NOTE | 2018-12-06 11:54 | NUR ---
Patient is eating her late breakfast, therefore did not check her blood sugars. Informed primary RN, Silvina Melton
[2018-12-06] MEDS: heparin 25,000 UNIT/250ml bag 250 ML IV SCH ×2 (13:58→23:07)
[2018-12-06 14:30] LABS: PLEURAL FLUID PH 7.508 (7.63-7.65)
[2018-12-06 14:31] LABS: BFSOURCE PLEURAL FLD
[2018-12-06 14:51] LABS: GLUCOSE,BODY FLUID 104 MG/DL; TOTAL PROTEIN,BODY FLUID 4.9 G/DL
[2018-12-06 14:53] LABS: LDH,BODY FLUID 604 U/L
[2018-12-06 15:28] LABS: BASOPHILS,BODY FLUID 1 %; EOSINOPHILS,BODY FLUID 2 %; LYMPHOCYTES,BODY FLUID 36 %; NEUTROPHILS,BODY FLUID 61 %
[2018-12-06 15:35] LABS: BFAPPEAR BLOODY
[2018-12-06 15:36] LABS: BF RBC COUNT 77750 /CU MM; BF WBC COUNT 172 /CU MM (0-1000); BFCOLOR RED; BFVOLUME 5 ML
--- NOTE | 2018-12-06 18:25 | NUR ---
Problems reprioritized. Patient report given, questions answered & plan of care reviewed with Mimi ELLIOTT. Patient stable at transfer of care.
[2018-12-07] MEDS: cefepime 1GM/NS ADD-VANTAGE 100 ML IV SCH ×4 (00:46→23:33)
[2018-12-07] MEDS: methylPREDNISolone sod succ 125mg/2ml vial IV SCH ×4 (01:37→21:09)
[2018-12-07] MEDS: mag hydrox/Alum hydrox/simeth 30ml oral suspension PO PRN ×3 (01:59→23:58)
[2018-12-07] MEDS: heparin 25,000 UNIT/250ml bag 250 ML IV SCH ×3 (01:59→13:12)
[2018-12-07 02:00] VITALS: BP 118/62
[2018-12-07 02:19] LABS: BASOPHILS # (AUTO) 0.1 X10'3 (0-0.2); BASOPHILS % (AUTO) 0.4 % (0-1); EOSINOPHILS % (AUTO) 0.1 % (0-6); HEMATOCRIT 33.6 % (35.0-45.0); HEMOGLOBIN 11.2 g/dl (12.0-16.0); LYMPHOCYTES # (AUTO) 1.3 X10'3 (1.1-4.8); LYMPHOCYTES % (AUTO) 6.8 % (21-51); MEAN CORPUSCULAR HEMOGLOBIN 31.7 PG (27.0-31.0); MEAN CORPUSCULAR HGB CONC 33.3 g/dL (33.0-36.5); MEAN CORPUSCULAR VOLUME 95.1 FL (78-98); MEAN PLATELET VOLUME 7.3 FL (7.4-10.4); MONOCYTES # (AUTO) 1.3 X10'3 (0-0.9); MONOCYTES % (AUTO) 6.9 % (2-12); NEUTROPHILS # (AUTO) 15.7 X10'3 (1.8-7.7); NEUTROPHILS % (AUTO) 85.8 % (42-75); PLATELET COUNT 362 X10'3 (140-440); RED BLOOD COUNT 3.53 X10'6 (4.20-5.60); RED CELL DISTRIBUTION WIDTH 14.9 % (11.5-14.5); WHITE BLOOD COUNT 18.3 X10'3 (4.5-11.0)
[2018-12-07 02:28] LABS: ALANINE AMINOTRANSFERASE 16 U/L (12-78); ALBUMIN 1.9 G/DL (3.4-5.0); ALBUMIN/GLOBULIN RATIO 0.3 (1.1-1.5); ALKALINE PHOSPHATASE 70 IU/L (46-116); ANION GAP 7 (8-16); ASPARTATE AMINO TRANSFERASE 19 U/L (10-37); BILIRUBIN,TOTAL 0.1 MG/DL (0.1-1.0); BLOOD UREA NITROGEN 38 MG/DL (7-18); BUN/CREATININE RATIO 37.6 (6.6-38.0); CALCIUM 8.3 MG/DL (8.5-10.1); CHLORIDE 104 MMOL/L (99-107); CREATININE 1.01 MG/DL (0.40-0.90); GLUCOSE 164 MG/DL (70-104); MAGNESIUM 2.4 MG/DL (1.5-2.4); PHOSPHORUS 2.4 MG/DL (2.3-4.5); SODIUM 138 MMOL/L (135-145); TOTAL CARBON DIOXIDE 26.9 MMOL/L (24-32); TOTAL PROTEIN 7.4 G/DL (6.4-8.2); eGFR 55 ML/MIN
[2018-12-07 02:29] LABS: POTASSIUM 4.7 MMOL/L (3.5-5.1)
--- NOTE | 2018-12-07 05:59 | NUR ---
Patient is assumed to have experiences of silence seizures during hospital stay. On this shift@2320 patient was not arousable to name and barely to shaking. Medications were held because of being unable to swallow. She was then placed on BiPAP. Vital signs taken and was stable, and blood sugar was 143. She was woke up spontaneously 2350 and was A&Ox4.
[2018-12-07 06:00] VITALS: BP 140/73
--- NOTE | 2018-12-07 06:10 | NUR ---
Patient in room PCU 3024. I have received report from Mimi ELLIOTT and had the opportunity to ask questions and assume patient care.
--- NOTE | 2018-12-07 06:14 | NUR ---
Problems reprioritized. Patient report given, questions answered & plan of care reviewed with Gerardo ELLIOTT.
[2018-12-07] MEDS: ipratropium/albuterol 3ml nebule IH SCH ×4 (07:22→18:49)
[2018-12-07] MEDS: budesonide 0.5mg/2ml UD nebule IH SCH ×2 (07:23→18:50)
[2018-12-07] MEDS: furosemide 40mg/4ml inj IV SCH (07:44)
[2018-12-07] MEDS: lisinopril 10 MG tablet PO SCH (07:45)
[2018-12-07] MEDS: metoprolol succinate 25mg (24-HOUR) SR. Tablet PO SCH (07:45)
[2018-12-07] MEDS: lactobacillus rhamnosus 10,000 MMU CELLS/CAPSULE PO SCH ×2 (07:46→21:09)
[2018-12-07] MEDS: levetiracetam 250mg tablet PO SCH ×2 (07:46→21:08)
[2018-12-07] MEDS: carBAMazepine 100mg chewable tablet PO SCH ×2 (07:46→21:09)
[2018-12-07] MEDS: phenytoin sod ER 100mg capsule PO SCH ×2 (07:47→21:09)
[2018-12-07] MEDS: K and/or MAG REPLACEMENT MC SCH (08:00)
[2018-12-07] MEDS: nystatin 15 GM powder TP SCH ×3 (08:00→21:09)
[2018-12-07] MEDS: lactose-reduced food (Ensure High Protein) 237ml bottle PO SCH ×3 (08:00→18:00)
[2018-12-07 11:00] VITALS: BP 93/65
[2018-12-07] MEDS: normal saline 1000ml 1,000 ML IV SCH (14:34)
[2018-12-07 15:00] VITALS: BP 91/57
--- NOTE | 2018-12-07 18:00 | NUR ---
Problems reprioritized. Patient report given, questions answered & plan of care reviewed with Mimi ELLIOTT and Alta ELLIOTT.
--- NOTE | 2018-12-07 18:31 | NUR ---
Patient in room PCU 3024. I have received report from LEXI Carrillo and had the opportunity to ask questions and assume patient care.
[2018-12-07 19:00] VITALS: BP 106/59
[2018-12-07] MEDS: diphenhydrAMINE 25mg capsule PO PRN (21:15)
[2018-12-07 23:00] VITALS: BP 109/57
[2018-12-08] MEDS: methylPREDNISolone sod succ 125mg/2ml vial IV SCH ×3 (01:27→14:22)
[2018-12-08] MEDS: heparin 25,000 UNIT/250ml bag 250 ML IV SCH (01:38)
[2018-12-08 03:00] VITALS: BP 99/54
[2018-12-08] MEDS: mag hydrox/Alum hydrox/simeth 30ml oral suspension PO PRN ×2 (05:01→17:37)
[2018-12-08 06:00] VITALS: BP 122/78
[2018-12-08 06:00] LABS: BASOPHILS % (AUTO) 0.3 % (0-1); EOSINOPHILS % (AUTO) 0.2 % (0-6); HEMATOCRIT 31.7 % (35.0-45.0); HEMOGLOBIN 10.5 g/dl (12.0-16.0); MEAN CORPUSCULAR HEMOGLOBIN 31.6 PG (27.0-31.0); MEAN CORPUSCULAR VOLUME 95.6 FL (78-98); MEAN PLATELET VOLUME 7.5 FL (7.4-10.4); MONOCYTES % (AUTO) 5.8 % (2-12); NEUTROPHILS % (AUTO) 87.7 % (42-75); PLATELET COUNT 352 X10'3 (140-440); RED BLOOD COUNT 3.32 X10'6 (4.20-5.60); RED CELL DISTRIBUTION WIDTH 15.6 % (11.5-14.5); WHITE BLOOD COUNT 17.1 X10'3 (4.5-11.0)
--- NOTE | 2018-12-08 06:10 | NUR ---
Patient in room PCU 3024. I have received report from Mimi ELLIOTT and had the opportunity to ask questions and assume patient care.
--- NOTE | 2018-12-08 06:14 | NUR ---
Problems reprioritized. Patient report given, questions answered & plan of care reviewed with Gerardo ELLIOTT.
[2018-12-08 06:28] LABS: ALANINE AMINOTRANSFERASE 17 U/L (12-78); ALBUMIN/GLOBULIN RATIO 0.4 (1.1-1.5); ALKALINE PHOSPHATASE 69 IU/L (46-116); ANION GAP 10 (8-16); ASPARTATE AMINO TRANSFERASE 18 U/L (10-37); BILIRUBIN,TOTAL 0.2 MG/DL (0.1-1.0); BLOOD UREA NITROGEN 37 MG/DL (7-18); BUN/CREATININE RATIO 36.3 (6.6-38.0); CALCIUM 8.7 MG/DL (8.5-10.1); CHLORIDE 101 MMOL/L (99-107); CREATININE 1.02 MG/DL (0.40-0.90); GLUCOSE 186 MG/DL (70-104); MAGNESIUM 2.5 MG/DL (1.5-2.4); POTASSIUM 3.9 MMOL/L (3.5-5.1); SODIUM 139 MMOL/L (135-145); TOTAL CARBON DIOXIDE 28.4 MMOL/L (24-32); TOTAL PROTEIN 7.4 G/DL (6.4-8.2); eGFR 55 ML/MIN
[2018-12-08] MEDS: furosemide 40mg/4ml inj IV SCH (07:29)
[2018-12-08] MEDS: levetiracetam 250mg tablet PO SCH (07:29)
[2018-12-08] MEDS: carBAMazepine 100mg chewable tablet PO SCH (07:30)
[2018-12-08] MEDS: phenytoin sod ER 100mg capsule PO SCH (07:30)
[2018-12-08] MEDS: lactobacillus rhamnosus 10,000 MMU CELLS/CAPSULE PO SCH (07:30)
[2018-12-08] MEDS: metoprolol succinate 25mg (24-HOUR) SR. Tablet PO SCH (07:31)
[2018-12-08] MEDS: cefepime 1GM/NS ADD-VANTAGE 100 ML IV SCH ×2 (07:31→16:30)
[2018-12-08] MEDS: lisinopril 10 MG tablet PO SCH (07:31)
[2018-12-08] MEDS: ipratropium/albuterol 3ml nebule IH SCH ×3 (07:48→15:34)
[2018-12-08] MEDS: budesonide 0.5mg/2ml UD nebule IH SCH (07:48)
[2018-12-08] MEDS: nystatin 15 GM powder TP SCH ×2 (08:00→13:44)
[2018-12-08] MEDS: lactose-reduced food (Ensure High Protein) 237ml bottle PO SCH ×2 (08:00→13:44)
[2018-12-08] MEDS: K and/or MAG REPLACEMENT MC SCH (08:00)
[2018-12-08 11:00] VITALS: BP 113/74
[2018-12-08 15:00] VITALS: BP 114/62
--- NOTE | 2018-12-08 18:43 | NUR ---
[facility] Report called to [facility] and given to RN. Pt's belongings gathered and sent with Pt. Pt wheeled down to lobby in wheelchair by [employer] personal. Pt transfered to [facility]. Addendum: 12/08/18 at 1854 by Gerardo Kay RN Pt DC'd to [facility] rehab. Pt's IV's removed, canula's intact. Tele-box removed and returned to [facility]. Report called to [facility] and given to RN. Pt's belongings gathered and sent with Pt. Pt wheeled down to lobby in wheelchair by [employer] personal. Pt transfered to [facility].
--- NOTE | 2018-12-11 11:17 | NUR ---
Pt's boyfriend to nursing station, states that patient left medications in pharmacy when discharged on Tuesday. Phoned pharmacy, medications still in lockup. Picked up medications (Osteo Bi-flex, Green Tea, and Lactaid) from pharmacy and given to patient's boyfriend. Documentation of medication return to be placed into patient's medical record.
== END 2018-12-08 18:29 | DRG 177 ==
LOC: ER 10:30 → ED HOLD 14:34 → PCU 3S 16:46
PROVIDERS: ADMIT Family Medicine; ATTEND Family Medicine
PROC: 5A09357 Assistance with Respiratory Ventilation, Less than 24 Consecutive Hours, Continuous Positive Airway Pressure (ICD-10-PCS; principal; 2018-11-29)
PROC: 5A09357 Assistance with Respiratory Ventilation, Less than 24 Consecutive Hours, Continuous Positive Airway Pressure (ICD-10-PCS; 2018-12-01)
PROC: 5A09357 Assistance with Respiratory Ventilation, Less than 24 Consecutive Hours, Continuous Positive Airway Pressure (ICD-10-PCS; 2018-12-03)
PROC: 5A09357 Assistance with Respiratory Ventilation, Less than 24 Consecutive Hours, Continuous Positive Airway Pressure (ICD-10-PCS; 2018-12-06)
PROC: 0W993ZX Drainage of Right Pleural Cavity, Percutaneous Approach, Diagnostic (ICD-10-PCS; 2018-12-06)
DX: J69.0 Pneumonitis due to inhalation of food and vomit (principal); I26.99 Other pulmonary embolism without acute cor pulmonale; J86.9 Pyothorax without fistula; J96.21 Acute and chronic respiratory failure with hypoxia; J96.22 Acute and chronic respiratory failure with hypercapnia; I50.33 Acute on chronic diastolic (congestive) heart failure; N17.0 Acute kidney failure with tubular necrosis; G93.40 Encephalopathy, unspecified; E87.2 Acidosis; E66.2 Morbid (severe) obesity with alveolar hypoventilation; J44.1 Chronic obstructive pulmonary disease with (acute) exacerbation; Z68.41 Body mass index [BMI] 40.0-44.9, adult; J91.8 Pleural effusion in other conditions classified elsewhere; W18.39XA Other fall on same level, initial encounter; M19.90 Unspecified osteoarthritis, unspecified site; R00.0 Tachycardia, unspecified; I95.2 Hypotension due to drugs; G40.909 Epilepsy, unspecified, not intractable, without status epilepticus; I11.0 Hypertensive heart disease with heart failure; R29.6 Repeated falls; Y95 Nosocomial condition; Z79.01 Long term (current) use of anticoagulants; Z82.5 Family history of asthma and other chronic lower respiratory diseases; Z91.19 Patient's noncompliance with other medical treatment and regimen; Z99.81 Dependence on supplemental oxygen; Y93.89 Activity, other specified; Y92.098 Other place in other non-institutional residence as the place of occurrence of the external cause; Y99.8 Other external cause status; Z88.0 Allergy status to penicillin; Z88.8 Allergy status to other drugs, medicaments and biological substances; Z88.1 Allergy status to other antibiotic agents
CPT/HCPCS: 32555; 36415; 36600; 70450; 71045; 71275; 76937; 80053; 80061; 80185; 80305; 81001; 82140; 82803; 82945; 82948; 83036; 83605; 83615; 83735; 83880; 83986; 84100; 84157; 84484; 85018; 85025; 85610; 85730; 87040; 87070; 87075; 87081; 89051; 92508; 92616; 93005; 94640; 94660; 94667; 94668; 94760; 96365; 97110; 97112; 97116; 97124; 97162; 97530; 97535; 99285; G0378; J0692; J1644; J1940; J2405; J2930; J3370; J3490; J7030; J7626; Q0163; Q9967

== ENCOUNTER 2018-12-14 02:32 | Inpatient (IN) | payer OTHER ==
[~2018-12-14] VITALS: Ht 167.6 cm; Wt 128.0 kg
[~2018-12-14 02:32] MED LIST changes: +GLUC-237 PO; +GREE150C PO; -IBUP-1984 PO; +[UNRECOGNIZED DRUG - CODE]
[2018-12-14 03:04] LABS: BASOPHILS # (AUTO) 0.2 X10'3 (0-0.2); BASOPHILS % (AUTO) 1.2 % (0-1); EOSINOPHILS # (AUTO) 0.3 X10'3 (0-0.9); EOSINOPHILS % (AUTO) 1.8 % (0-6); HEMATOCRIT 32.5 % (35.0-45.0); HEMOGLOBIN 10.7 g/dl (12.0-16.0); LYMPHOCYTES # (AUTO) 1.3 X10'3 (1.1-4.8); LYMPHOCYTES % (AUTO) 9.1 % (21-51); MEAN CORPUSCULAR HEMOGLOBIN 31.9 PG (27.0-31.0); MEAN CORPUSCULAR VOLUME 96.7 FL (78-98); MEAN PLATELET VOLUME 7.4 FL (7.4-10.4); MONOCYTES # (AUTO) 1.4 X10'3 (0-0.9); MONOCYTES % (AUTO) 9.3 % (2-12); NEUTROPHILS # (AUTO) 11.5 X10'3 (1.8-7.7); NEUTROPHILS % (AUTO) 78.6 % (42-75); PLATELET COUNT 464 X10'3 (140-440); RED BLOOD COUNT 3.36 X10'6 (4.20-5.60); RED CELL DISTRIBUTION WIDTH 15.8 % (11.5-14.5); WHITE BLOOD COUNT 14.7 X10'3 (4.5-11.0)
[2018-12-14] MEDS ORDERED: furosemide 10 MG/1 ML 10ml inj IV ONE (03:10)
[2018-12-14 03:19] LABS: ALANINE AMINOTRANSFERASE 19 U/L (12-78); ALBUMIN 2.2 G/DL (3.4-5.0); ALBUMIN/GLOBULIN RATIO 0.4 (1.1-1.5); ALKALINE PHOSPHATASE 73 IU/L (46-116); ANION GAP 2 (8-16); ASPARTATE AMINO TRANSFERASE 20 U/L (10-37); BILIRUBIN,TOTAL 0.4 MG/DL (0.1-1.0); BLOOD UREA NITROGEN 20 MG/DL (7-18); BUN/CREATININE RATIO 20.8 (6.6-38.0); CALCIUM 8.7 MG/DL (8.5-10.1); CHLORIDE 97 MMOL/L (99-107); CREATININE 0.96 MG/DL (0.40-0.90); GLUCOSE 153 MG/DL (70-104); POTASSIUM 4.9 MMOL/L (3.5-5.1); SODIUM 135 MMOL/L (135-145); TOTAL CARBON DIOXIDE 36.4 MMOL/L (24-32); TOTAL PROTEIN 7.6 G/DL (6.4-8.2); eGFR 59 ML/MIN
--- NOTE | 2018-12-14 03:30 | NUR ---
PT ASKING TO GET UP OUT OF BED TO USE BED SIDE COMMODE . PT STOOLED BACK TO BED WITH THREE ASSIST . URO JET PLACED FOR VOIDING .
[2018-12-14] MEDS ORDERED: magnesium hydroxide 30ml (MOM) UD suspension PO PRN (04:20)
[2018-12-14] MEDS ORDERED: acetaminophen 325mg tablet PO PRN ×2 (04:20→04:40)
[2018-12-14] MEDS ORDERED: LACTC PO (04:35)
[2018-12-14] MEDS ORDERED: ASCO500C15 PO (04:35)
[2018-12-14] MEDS ORDERED: PRED5TAB PO (04:35)
[2018-12-14] MEDS ORDERED: APIX5TAB3 PO (04:35)
[2018-12-14] MEDS ORDERED: ACET-2119 PO (04:35)
[2018-12-14] MEDS ORDERED: IPRA4AER IH (04:35)
[2018-12-14] MEDS ORDERED: CEFD300C3 PO (04:35)
[2018-12-14] MEDS ORDERED: IPRA3AMP31 IH (04:35)
[2018-12-14] MEDS ORDERED: LEVE500T PO (04:35)
[2018-12-14 04:36] LABS: PHENYTOIN (DILANTIN) 4.5 UG/ML (10.0-20.0)
[2018-12-14] MEDS ORDERED: non-formulary drug (Ipratropium/Albuterol Sulfate (Combivent Respimat Inhal Spray) 1 PUFFS IH PRN (04:40)
--- NOTE | 2018-12-14 05:15 | NUR ---
pt placed on c diff precautions sign on door and gowns at entrance
--- NOTE | 2018-12-14 05:15 | NUR ---
pt stooled in bed . states she can't control her movements " i am sorry " uro wik in place but not functioning , as pt has so much loose stool
--- NOTE | 2018-12-14 05:20 | NUR ---
attmepted to draw pt troponin . unsucessful . pt stooling every 15 min
--- NOTE | 2018-12-14 05:48 | NUR ---
pt to ct
--- NOTE | 2018-12-14 06:07 | NUR ---
TROPONIN DRAWN AND SENT TO LAB
[2018-12-14] MEDS: ipratropium/albuterol 3ml nebule IH SCH ×6 (06:49→23:48)
[2018-12-14] MEDS ORDERED: ipratropium 0.5 MG/2.5ML nebule IH SCH (07:00)
--- NOTE | 2018-12-14 07:09 | NUR ---
Patient in room ED 12. I have received report from [facility] ED RN and had the opportunity to ask questions and assume patient care.
[2018-12-14] MEDS ORDERED: LACTASE SCH (07:30)
[2018-12-14] MEDS ORDERED: furosemide 40mg tablet PO SCH (08:00)
[2018-12-14] MEDS ORDERED: cefpodoxime proxetil 100mg tablet PO SCH (08:00)
[2018-12-14] MEDS ORDERED: GREEN TEA LEAF EXTRACT PO SCH (08:00)
[2018-12-14] MEDS ORDERED: GLUCOSAMINE PO SCH (08:00)
[2018-12-14] MEDS ORDERED: BOSWELLIA SERRA PO SCH (08:00)
[2018-12-14] MEDS ORDERED: D3 PO SCH (08:00)
[2018-12-14] MEDS: budesonide 0.5mg/2ml UD nebule IH SCH ×2 (09:00→20:03)
[2018-12-14 09:12] LABS: C DIFFICILE TOXINS A&B POSITIVE (Neg)
[2018-12-14 09:13] LABS: C DIFF ANTIGEN POSITIVE (NEGATIVE); C DIFF SPECIMEN=DIARRHEA? ACCEPTABLE
[2018-12-14] MEDS: levetiracetam 250mg tablet PO SCH ×2 (10:06→19:45)
[2018-12-14] MEDS: apixaban 5mg tablet PO SCH ×2 (10:06→18:47)
[2018-12-14] MEDS: lactobacillus rhamnosus 10,000 MMU CELLS/CAPSULE PO SCH ×2 (10:17→19:45)
[2018-12-14] MEDS: predniSONE 20 mg tablet PO SCH (10:26)
[2018-12-14] MEDS: metoprolol tartrate 12.5mg (1/2 tablet) PO SCH ×2 (10:26→19:48)
[2018-12-14] MEDS: lisinopril 20mg tablet PO SCH (10:27)
[2018-12-14] MEDS: ascorbic acid 500mg tablet PO SCH ×2 (10:27→19:44)
[2018-12-14] MEDS: phenytoin sod ER 100mg capsule PO SCH ×2 (10:46→19:44)
[2018-12-14 11:00] VITALS: BP 95/58
[2018-12-14] MEDS: HYDROcodone/acetaminophen 5mg/325mg tablet PO PRN (11:43)
[2018-12-14] MEDS: carBAMazepine 100mg chewable tablet PO SCH ×2 (11:58→19:45)
[2018-12-14] MEDS: mag hydrox/Alum hydrox/simeth 30ml oral suspension PO PRN ×4 (11:58→23:50)
[2018-12-14] MEDS: vancomycin 125mg/5ml ORAL solution 5ml UD bottle PO SCH ×2 (15:45→19:44)
--- NOTE | 2018-12-14 16:14 | NUR ---
Received TC from RN stating pt requesting ONS d/t difficulty eating secondary to ascites and SOB. Pt currently on a regular diet, pending documentation of PO intake. Attempted visit with pt at bedside however pt was sleeping and did not wake with verbal cues. D/w RN ordering Ensure TID, no orders at this time. Will continue to follow. Addendum: 12/14/18 at [address] Amended: Links added.
[2018-12-14] MEDS: furosemide 40mg/4ml inj IV SCH (19:48)
[2018-12-14 20:00] VITALS: BP 101/63
--- NOTE | 2018-12-14 20:00 | NUR ---
Fransisco held tonight for procedure tomorrow.
--- NOTE | 2018-12-14 23:58 | NUR ---
MARYCRUZ LANDA held for elevated HR. New onset, greater than 120 Addendum: 12/14/18 at 3285 by Guillermo Huff RT Amended: Links added.
[2018-12-15] VITALS (8 sets, daily range): BP systolic 80–107; BP diastolic 46–67
--- NOTE | 2018-12-15 01:13 | NUR ---
Dr. Walter called and notified of patient's HR sustaining in the 120's. MD coker is aware to continue to monitor.
--- NOTE | 2018-12-15 01:50 | NUR ---
Tele called patient HR in 140's. Patient had a large incontinent BM in bed. Called Tele back @0210 after cleaning patient and settling her in back in bed. Patient's current HR went down to 85.
[2018-12-15] MEDS: vancomycin 125mg/5ml ORAL solution 5ml UD bottle PO SCH ×4 (02:16→21:16)
[2018-12-15] MEDS: ipratropium/albuterol 3ml nebule IH SCH ×6 (02:53→23:22)
[2018-12-15 05:54] LABS: BASOPHILS # (AUTO) 0.1 X10'3 (0-0.2); BASOPHILS % (AUTO) 0.7 % (0-1); EOSINOPHILS # (AUTO) 0.2 X10'3 (0-0.9); EOSINOPHILS % (AUTO) 1.6 % (0-6); HEMATOCRIT 30.5 % (35.0-45.0); LYMPHOCYTES # (AUTO) 1.1 X10'3 (1.1-4.8); LYMPHOCYTES % (AUTO) 8.2 % (21-51); MEAN CORPUSCULAR HEMOGLOBIN 31.7 PG (27.0-31.0); MEAN CORPUSCULAR HGB CONC 32.9 g/dL (33.0-36.5); MEAN CORPUSCULAR VOLUME 96.3 FL (78-98); MEAN PLATELET VOLUME 7.9 FL (7.4-10.4); MONOCYTES # (AUTO) 1.5 X10'3 (0-0.9); MONOCYTES % (AUTO) 10.9 % (2-12); NEUTROPHILS # (AUTO) 10.8 X10'3 (1.8-7.7); NEUTROPHILS % (AUTO) 78.6 % (42-75); PLATELET COUNT 478 X10'3 (140-440); RED BLOOD COUNT 3.16 X10'6 (4.20-5.60); RED CELL DISTRIBUTION WIDTH 15.4 % (11.5-14.5); WHITE BLOOD COUNT 13.7 X10'3 (4.5-11.0)
[2018-12-15 05:58] LABS: ALBUMIN 2.1 G/DL (3.4-5.0); ANION GAP 3 (8-16); BLOOD UREA NITROGEN 22 MG/DL (7-18); CALCIUM 8.2 MG/DL (8.5-10.1); CHLORIDE 99 MMOL/L (99-107); GLUCOSE 194 MG/DL (70-104); PARTIAL THROMBOPLASTIN TIME 29 SECONDS (22-32); POTASSIUM 4.7 MMOL/L (3.5-5.1); SODIUM 140 MMOL/L (135-145); TOTAL CARBON DIOXIDE 38.3 MMOL/L (24-32); eGFR 50 ML/MIN
--- NOTE | 2018-12-15 06:30 | NUR ---
Patient in room [facility]. I have received report from BHAVANI ELLIOTT and had the opportunity to ask questions and assume patient care.
[2018-12-15] MEDS: budesonide 0.5mg/2ml UD nebule IH SCH ×2 (07:31→19:40)
[2018-12-15] MEDS: lisinopril 20mg tablet PO SCH (08:00)
[2018-12-15] MEDS: apixaban 5mg tablet PO SCH ×2 (08:00→21:12)
[2018-12-15] MEDS: furosemide 40mg/4ml inj IV SCH ×2 (08:00→21:10)
[2018-12-15] MEDS: metoprolol tartrate 12.5mg (1/2 tablet) PO SCH ×2 (08:00→21:13)
--- NOTE | 2018-12-15 08:00 | NUR ---
Patients blood pressure medication were held because patient systolic was outside of the parameter of the medication administer for the two blood pressure medications and lasix. The Apixaban is held for procedure per MD order.
[2018-12-15] MEDS: levetiracetam 250mg tablet PO SCH ×2 (09:36→21:14)
[2018-12-15] MEDS: predniSONE 20 mg tablet PO SCH (09:36)
[2018-12-15] MEDS: lactobacillus rhamnosus 10,000 MMU CELLS/CAPSULE PO SCH ×2 (09:36→21:14)
[2018-12-15] MEDS: phenytoin sod ER 100mg capsule PO SCH ×2 (09:36→21:23)
[2018-12-15] MEDS: carBAMazepine 100mg chewable tablet PO SCH ×2 (09:37→21:15)
[2018-12-15] MEDS: ascorbic acid 500mg tablet PO SCH ×2 (09:37→21:11)
[2018-12-15] MEDS: HYDROcodone/acetaminophen 5mg/325mg tablet PO PRN (09:39)
--- NOTE | 2018-12-15 10:45 | NUR ---
RELAYED INFORMATION TO LAB THAT DR. STODDARD NEEDED TWO SAMPLES FROM BOTH PLURAL AND PARATAENIAL FLUID SENT OUT FOR PATHOLOGY. [facility] BUT UNABLE TO SPECIFY FURTHER.
[2018-12-15] MEDS ORDERED: albumin (human) 25% 100ml IV 100 ML IV ONE (11:30)
[2018-12-15] MEDS ORDERED: albumin (human) 25% 100 ML IV solution IV ONE (11:35)
[2018-12-15 12:54] LABS: EOSINOPHILS,BODY FLUID 1 %; LYMPHOCYTES,BODY FLUID 86 %; MONOCYTES,BODY FLUID 9 %; NEUTROPHILS,BODY FLUID 4 %
[2018-12-15 12:55] LABS: BF RBC COUNT 54000 /CU MM; BF WBC COUNT 438 /CU MM (0-1000); BFAPPEAR BLOODY; BFCOLOR RED; BFVOLUME 55 ML
[2018-12-15 12:58] LABS: GLUCOSE,BODY FLUID 162 MG/DL; LDH,BODY FLUID 282 U/L
[2018-12-15 13:06] LABS: BF WBC COUNT 513 /CU MM (0-1000); BFAPPEAR BLOODY; BFCOLOR RED; BFVOLUME 55 ML
[2018-12-15 13:07] LABS: BF MESOTHELIAL CELLS FEW; BF RBC COUNT 20750 /CU MM; EOSINOPHILS,BODY FLUID 1 %; LYMPHOCYTES,BODY FLUID 90 %; MONOCYTES,BODY FLUID 7 %; NEUTROPHILS,BODY FLUID 2 %
[2018-12-15] MEDS: lactose-reduced food (Ensure Enlive) - 237ml bottle PO SCH ×2 (13:23→18:17)
[2018-12-15 15:19] LABS: LACTATE DEHYDROGENASE 456 U/L (81-234)
--- NOTE | 2018-12-15 18:10 | NUR ---
Patient in room [facility]. I have received report from MARCUS ELLIOTT and had the opportunity to ask questions and assume patient care. Addendum: 12/15/18 at 2324 by Trish Nolen RN Amended: Links added.
--- NOTE | 2018-12-15 18:30 | NUR ---
Problems reprioritized. Patient report given, questions answered & plan of care reviewed with ENIO ELLIOTT.
--- NOTE | 2018-12-15 21:00 | NUR ---
PT UP WITH ASSIST TO BEDSIDE COMMODE WITH ASSIST OF 2 PEOPLE AND TOLERATED WELL.
--- NOTE | 2018-12-15 22:46 | NUR ---
UP TO AND FROM THE COMMODE WITH 2 PEOPLE. PT TOLERATED WELL. INC OF LIQUID STOOL AND ON THE BEDSIDE COMMODE FOR IT. SKIN CARE GIVEN.
[2018-12-16 00:10] VITALS: BP 95/50
--- NOTE | 2018-12-16 00:30 | NUR ---
resting without changes.
--- NOTE | 2018-12-16 02:05 | NUR ---
pt awoke for po vancomycin took it and vitals done. continue to monitor Bp.
[2018-12-16] MEDS: vancomycin 125mg/5ml ORAL solution 5ml UD bottle PO SCH ×4 (02:11→20:18)
[2018-12-16 02:15] VITALS: BP 100/61
[2018-12-16 03:13] VITALS: BP 92/53
--- NOTE | 2018-12-16 03:14 | NUR ---
up with assistance to BSc tolerated fair ice chips given per request talked with pt regarding her swallowing occasionally coughs afterwards and pt states has asthma and dry throat makes her cough, teaching done regarding being cautious and in swallowing.
[2018-12-16] MEDS: ipratropium/albuterol 3ml nebule IH SCH ×6 (03:23→22:53)
--- NOTE | 2018-12-16 05:02 | NUR ---
resting eyes closed without changes.
--- NOTE | 2018-12-16 06:16 | NUR ---
Problems reprioritized. Patient report given, questions answered & plan of care reviewed with Reji Dallas. Addendum: 12/16/18 at 0616 by Trish Nolen RN Amended: Links added.
[2018-12-16 06:17] LABS: BASOPHILS # (AUTO) 0.1 X10'3 (0-0.2); BASOPHILS % (AUTO) 0.8 % (0-1); EOSINOPHILS # (AUTO) 0.2 X10'3 (0-0.9); EOSINOPHILS % (AUTO) 1.6 % (0-6); HEMATOCRIT 27.9 % (35.0-45.0); HEMOGLOBIN 9.2 g/dl (12.0-16.0); LYMPHOCYTES # (AUTO) 1.1 X10'3 (1.1-4.8); LYMPHOCYTES % (AUTO) 9.3 % (21-51); MEAN CORPUSCULAR VOLUME 96.7 FL (78-98); MEAN PLATELET VOLUME 7.8 FL (7.4-10.4); MONOCYTES # (AUTO) 1.3 X10'3 (0-0.9); MONOCYTES % (AUTO) 11.1 % (2-12); NEUTROPHILS # (AUTO) 9.2 X10'3 (1.8-7.7); NEUTROPHILS % (AUTO) 77.2 % (42-75); PLATELET COUNT 408 X10'3 (140-440); RED BLOOD COUNT 2.89 X10'6 (4.20-5.60); RED CELL DISTRIBUTION WIDTH 15.6 % (11.5-14.5); WHITE BLOOD COUNT 11.9 X10'3 (4.5-11.0)
--- NOTE | 2018-12-16 06:30 | NUR ---
Patient in room [facility]. I have received report from Trish ELLIOTT and had the opportunity to ask questions and assume patient care.
[2018-12-16 06:32] LABS: ALBUMIN 2.1 G/DL (3.4-5.0); ANION GAP 5 (8-16); BLOOD UREA NITROGEN 23 MG/DL (7-18); BUN/CREATININE RATIO 24.7 (6.6-38.0); CALCIUM 8.3 MG/DL (8.5-10.1); CHLORIDE 99 MMOL/L (99-107); CREATININE 0.93 MG/DL (0.40-0.90); GLUCOSE 120 MG/DL (70-104); POTASSIUM 4.8 MMOL/L (3.5-5.1); SODIUM 140 MMOL/L (135-145); TOTAL CARBON DIOXIDE 36.3 MMOL/L (24-32); eGFR 61 ML/MIN
[2018-12-16] MEDS: budesonide 0.5mg/2ml UD nebule IH SCH ×2 (07:13→19:57)
[2018-12-16 07:16] VITALS: BP 88/55
[2018-12-16] MEDS: metoprolol tartrate 12.5mg (1/2 tablet) PO SCH ×2 (08:00→20:00)
[2018-12-16] MEDS: lisinopril 20mg tablet PO SCH (08:00)
[2018-12-16] MEDS: lactose-reduced food (Ensure Enlive) - 237ml bottle PO SCH ×3 (08:40→18:00)
[2018-12-16] MEDS: ascorbic acid 500mg tablet PO SCH ×2 (08:44→20:18)
[2018-12-16] MEDS: predniSONE 20 mg tablet PO SCH (08:44)
[2018-12-16] MEDS: apixaban 5mg tablet PO SCH ×2 (08:45→20:17)
[2018-12-16] MEDS: lactobacillus rhamnosus 10,000 MMU CELLS/CAPSULE PO SCH ×2 (08:45→20:17)
[2018-12-16] MEDS: levetiracetam 250mg tablet PO SCH ×2 (08:45→20:18)
[2018-12-16] MEDS: phenytoin sod ER 100mg capsule PO SCH ×2 (08:46→20:18)
[2018-12-16] MEDS: carBAMazepine 100mg chewable tablet PO SCH ×2 (08:46→20:17)
[2018-12-16] MEDS: furosemide 40mg/4ml inj IV SCH ×2 (08:47→20:16)
[2018-12-16 11:00] VITALS: BP 105/64
[2018-12-16 12:48] LABS: ALBUMIN,BODY FLUID 1.9 G/DL
[2018-12-16] MEDS ORDERED: iohexol 300mg/ml 100ml inj. ONE (13:00)
--- NOTE | 2018-12-16 18:30 | NUR ---
Problems reprioritized. Patient report given, questions answered & plan of care reviewed with ENIO ELLIOTT.
--- NOTE | 2018-12-16 18:44 | NUR ---
Patient in room [facility]. I have received report from Reji Dallas and had the opportunity to ask questions and assume patient care. Addendum: 12/16/18 at 1844 by Trish Nolen RN Amended: Links added.
[2018-12-16 19:30] VITALS: BP 103/52
--- NOTE | 2018-12-16 20:00 | NUR ---
pt took po meds no complaints of pain or s&s of distress. Rt in for tx prior to this.
--- NOTE | 2018-12-16 21:14 | NUR ---
resting without changes.
--- NOTE | 2018-12-16 21:58 | NUR ---
resting without changes
--- NOTE | 2018-12-16 23:03 | NUR ---
Rt in with pt batteries changed
[2018-12-17] VITALS: BP 109/65
--- NOTE | 2018-12-17 00:18 | NUR ---
resting without changes
[2018-12-17] MEDS: HYDROcodone/acetaminophen 5mg/325mg tablet PO PRN ×3 (01:11→21:55)
[2018-12-17] MEDS: vancomycin 125mg/5ml ORAL solution 5ml UD bottle PO SCH ×4 (01:11→20:35)
--- NOTE | 2018-12-17 01:14 | NUR ---
c/o abd pain cramping 10/07 medicated with norco for this and given am po vanco and ice chips.
[2018-12-17] MEDS: ipratropium/albuterol 3ml nebule IH SCH ×6 (02:46→23:00)
--- NOTE | 2018-12-17 03:10 | NUR ---
resting without changes.
--- NOTE | 2018-12-17 04:53 | NUR ---
resting eyes closed without changes.
--- NOTE | 2018-12-17 06:10 | NUR ---
Problems reprioritized. Patient report given, questions answered & plan of care reviewed with Reji Dallas. Addendum: 12/17/18 at 0610 by Trish Nolen RN Amended: Links added.
[2018-12-17 06:20] LABS: BASOPHILS # (AUTO) 0.1 X10'3 (0-0.2); BASOPHILS % (AUTO) 1.1 % (0-1); EOSINOPHILS # (AUTO) 0.2 X10'3 (0-0.9); EOSINOPHILS % (AUTO) 1.8 % (0-6); HEMATOCRIT 29.8 % (35.0-45.0); HEMOGLOBIN 9.9 g/dl (12.0-16.0); LYMPHOCYTES # (AUTO) 1.3 X10'3 (1.1-4.8); LYMPHOCYTES % (AUTO) 10.3 % (21-51); MEAN CORPUSCULAR HEMOGLOBIN 31.6 PG (27.0-31.0); MEAN CORPUSCULAR HGB CONC 33.2 g/dL (33.0-36.5); MEAN CORPUSCULAR VOLUME 95.3 FL (78-98); MEAN PLATELET VOLUME 7.7 FL (7.4-10.4); MONOCYTES # (AUTO) 1.6 X10'3 (0-0.9); MONOCYTES % (AUTO) 13.1 % (2-12); NEUTROPHILS # (AUTO) 9.1 X10'3 (1.8-7.7); NEUTROPHILS % (AUTO) 73.7 % (42-75); PLATELET COUNT 458 X10'3 (140-440); RED BLOOD COUNT 3.13 X10'6 (4.20-5.60); WHITE BLOOD COUNT 12.3 X10'3 (4.5-11.0)
[2018-12-17 06:24] LABS: ANION GAP 2 (8-16); BLOOD UREA NITROGEN 19 MG/DL (7-18); CALCIUM 8.4 MG/DL (8.5-10.1); CHLORIDE 97 MMOL/L (99-107); CREATININE 0.95 MG/DL (0.40-0.90); GLUCOSE 128 MG/DL (70-104); POTASSIUM 4.4 MMOL/L (3.5-5.1); SODIUM 136 MMOL/L (135-145); TOTAL CARBON DIOXIDE 36.7 MMOL/L (24-32); eGFR 59 ML/MIN
--- NOTE | 2018-12-17 06:30 | NUR ---
Patient in room [facility]. I have received report from Trish ELLIOTT and had the opportunity to ask questions and assume patient care.
[2018-12-17 07:36] VITALS: BP 106/62
[2018-12-17] MEDS: lisinopril 20mg tablet PO SCH (08:00)
[2018-12-17] MEDS: metoprolol tartrate 12.5mg (1/2 tablet) PO SCH ×2 (08:00→20:00)
[2018-12-17] MEDS: predniSONE 20 mg tablet PO SCH (08:57)
[2018-12-17] MEDS: phenytoin sod ER 100mg capsule PO SCH ×2 (08:57→20:37)
[2018-12-17] MEDS: lactobacillus rhamnosus 10,000 MMU CELLS/CAPSULE PO SCH ×2 (08:57→20:36)
[2018-12-17] MEDS: ascorbic acid 500mg tablet PO SCH ×2 (08:57→20:37)
[2018-12-17] MEDS: levetiracetam 250mg tablet PO SCH ×2 (08:58→20:36)
[2018-12-17] MEDS: carBAMazepine 100mg chewable tablet PO SCH ×2 (08:58→20:37)
[2018-12-17] MEDS: lactose-reduced food (Ensure Enlive) - 237ml bottle PO SCH ×3 (08:59→18:01)
[2018-12-17] MEDS: furosemide 40mg/4ml inj IV SCH ×2 (08:59→20:51)
[2018-12-17] MEDS: apixaban 5mg tablet PO SCH ×2 (08:59→20:37)
[2018-12-17 11:00] VITALS: BP 106/62
[2018-12-17] MEDS: budesonide 0.5mg/2ml UD nebule IH SCH ×2 (11:43→19:21)
[2018-12-17 18:00] VITALS: BP 98/63
--- NOTE | 2018-12-17 18:30 | NUR ---
Problems reprioritized. Patient report given, questions answered & plan of care reviewed with Trish ELLIOTT.
--- NOTE | 2018-12-17 18:41 | NUR ---
Patient in room [facility]. I have received report from MARCUS ELLIOTT and had the opportunity to ask questions and assume patient care. Addendum: 12/17/18 at 1841 by Trish Nolen RN Amended: Links added.
--- NOTE | 2018-12-17 20:35 | NUR ---
pt took hs meds and then with 2 sticks started iv left ac 20 gauge to give her lasix iv.
--- NOTE | 2018-12-17 21:50 | NUR ---
received call from tele stating pt heart rate went up to 130-140's. pt at rest eyes closed. went to check on her awoke said she had to use the bsc to void then c/o abd and back pain and of being cold. warm blanket given to her and medicated with po norco for the pain.
--- NOTE | 2018-12-17 22:00 | NUR ---
now called by tele again hearty rate in the 150's and checked pt and vitals taken. pt used bsc and then assisted back into bed for comfort. went over to tele to check on rhytm st to svt noted and hard to see pwave present so Ekg machine obtained to double check.
--- NOTE | 2018-12-17 22:30 | NUR ---
ekg done said st with superventricular bigemny. pt states she has not been sleeping well and feels that is contributing to this. states she when has lack of sleep chance for epileptic seizure. she did not feel uncomfortable. was not aware of the heart rate until staff told her it was elevated and why we were doing the Ekg.pt ok with this. after EKG done Rt came in to do resp tx and informed of the heart rate so the treatment was deferred at this time. no sob noted at this time. pt stated she was tired after all of this and at 2320 laid back down blankets on her and set up for comfort. telephonic nurse and charge of tele shown the EKG and will continue to monitor.
--- NOTE | 2018-12-17 23:40 | NUR ---
2340 pt resting eyes closed now heart rate 130's.
[2018-12-18] VITALS: BP 91/56
--- NOTE | 2018-12-18 00:49 | NUR ---
pt appears comfortable no s&s of distress. heart rate 130.
--- NOTE | 2018-12-18 01:48 | NUR ---
Student documentation: I have reviewed and agree with all interventions, assessments performed and documented by Kalie Bernard Rn student. Addendum: 12/18/18 at 0150 by Trish Nolen RN Amended: Links added.
[2018-12-18] MEDS: vancomycin 125mg/5ml ORAL solution 5ml UD bottle PO SCH ×4 (02:27→20:04)
--- NOTE | 2018-12-18 02:33 | NUR ---
pt awake denies c/o pain. brushed her teeth edge of bed then laid down and took po vanco and taking po ice chips tolerated well.
[2018-12-18] MEDS: ipratropium/albuterol 3ml nebule IH SCH ×6 (02:40→22:59)
--- NOTE | 2018-12-18 02:42 | NUR ---
pt without complaints or s&s of distress. Rt came to ask if needs a treatment and pt heart rate. noted rate in 130's and Rt Tx held due to this.
--- NOTE | 2018-12-18 03:15 | NUR ---
DR Walter notified of pt heart rate 130's meds on dx, bp last few days and lopressor held due to it and orders received for 500cc Ns bolus for her. after recieving the order pt set up and infusion started.
[2018-12-18] MEDS ORDERED: normal saline 1000ml 1,000 ML IV ONE (03:30)
[2018-12-18 06:25] LABS: BASOPHILS # (AUTO) 0.1 X10'3 (0-0.2); BASOPHILS % (AUTO) 0.7 % (0-1); EOSINOPHILS # (AUTO) 0.2 X10'3 (0-0.9); EOSINOPHILS % (AUTO) 2.1 % (0-6); HEMATOCRIT 28.5 % (35.0-45.0); HEMOGLOBIN 9.8 g/dl (12.0-16.0); LYMPHOCYTES # (AUTO) 1.2 X10'3 (1.1-4.8); MEAN CORPUSCULAR HEMOGLOBIN 32.7 PG (27.0-31.0); MEAN CORPUSCULAR HGB CONC 34.4 g/dL (33.0-36.5); MEAN CORPUSCULAR VOLUME 95.1 FL (78-98); MEAN PLATELET VOLUME 7.5 FL (7.4-10.4); MONOCYTES # (AUTO) 1.4 X10'3 (0-0.9); MONOCYTES % (AUTO) 11.7 % (2-12); NEUTROPHILS % (AUTO) 75.5 % (42-75); PLATELET COUNT 485 X10'3 (140-440); RED BLOOD COUNT 2.99 X10'6 (4.20-5.60); RED CELL DISTRIBUTION WIDTH 15.1 % (11.5-14.5); WHITE BLOOD COUNT 11.9 X10'3 (4.5-11.0)
--- NOTE | 2018-12-18 06:32 | NUR ---
Problems reprioritized. Patient report given, questions answered & plan of care reviewed with Dayna Dallas. Addendum: 12/18/18 at 0633 by Trish Nolen RN Amended: Links added.
[2018-12-18 06:41] LABS: ANION GAP 3 (8-16); BLOOD UREA NITROGEN 21 MG/DL (7-18); CALCIUM 8.5 MG/DL (8.5-10.1); CHLORIDE 95 MMOL/L (99-107); CREATININE 1.05 MG/DL (0.40-0.90); GLUCOSE 129 MG/DL (70-104); POTASSIUM 4.1 MMOL/L (3.5-5.1); SODIUM 136 MMOL/L (135-145); TOTAL CARBON DIOXIDE 37.8 MMOL/L (24-32); eGFR 53 ML/MIN
--- NOTE | 2018-12-18 06:53 | NUR ---
Patient in room [facility]. I have received report from Trish ELLIOTT and had the opportunity to ask questions and assume patient care.
[2018-12-18 07:00] VITALS: BP 97/62
--- NOTE | 2018-12-18 07:19 | NUR ---
Patient in room [facility]. I have received report from night nurses and had the opportunity to ask questions and assume patient care.
--- NOTE | 2018-12-18 07:49 | NUR ---
Patient hr elevated 135-140 no SVN tx @ this time. No Shortness of breath noted. LEXI Huddleston aware Addendum: 12/18/18 at 0750 by Matilda Hartley RT Amended: Links added.
[2018-12-18] MEDS: lisinopril 20mg tablet PO SCH (08:00)
[2018-12-18] MEDS: furosemide 40mg/4ml inj IV SCH ×2 (08:00→20:00)
[2018-12-18] MEDS: lactobacillus rhamnosus 10,000 MMU CELLS/CAPSULE PO SCH ×2 (08:23→20:07)
[2018-12-18] MEDS: ascorbic acid 500mg tablet PO SCH ×2 (08:23→20:07)
[2018-12-18] MEDS: carBAMazepine 100mg chewable tablet PO SCH ×2 (08:23→20:06)
[2018-12-18] MEDS: phenytoin sod ER 100mg capsule PO SCH ×2 (08:24→20:08)
[2018-12-18] MEDS: predniSONE 20 mg tablet PO SCH (08:24)
[2018-12-18] MEDS: levetiracetam 250mg tablet PO SCH ×2 (08:24→20:07)
[2018-12-18] MEDS: lactose-reduced food (Ensure Enlive) - 237ml bottle PO SCH ×3 (08:25→18:10)
[2018-12-18] MEDS: apixaban 5mg tablet PO SCH ×2 (08:25→20:07)
[2018-12-18 09:00] VITALS: BP 105/72
--- NOTE | 2018-12-18 09:15 | NUR ---
Student Medication Administration: For this medication-pass time frame, all medication were reviewed, dispensed, administered and documented per hospital policy by alexander Mcdonald.
[2018-12-18] MEDS: metoprolol tartrate 12.5mg (1/2 tablet) PO SCH ×2 (09:22→20:00)
--- NOTE | 2018-12-18 10:18 | NUR ---
Paged Dr. Singletary regarding consistent high heart rate 130's-140's since last night and that SBP was on the 90's so the Lopressor was held for a while. BP around 09:00am was 105/72, heart rate 141, Lopressor PO given at this time
[2018-12-18 11:00] VITALS: BP 109/71
[2018-12-18] MEDS ORDERED: digoxin 250mcg/ml 2ml ampule IV ONE (11:00)
--- NOTE | 2018-12-18 11:12 | NUR ---
Patient's heart rate continue to be elevated 130's-140's, digoxin 500 mcg slow IVP given per MD order
[2018-12-18 11:27] VITALS: BP 109/71
--- NOTE | 2018-12-18 11:54 | NUR ---
Problems reprioritized. Patient report given, questions answered & plan of care reviewed with Dayna.
--- NOTE | 2018-12-18 12:02 | NUR ---
Student documentation: I have reviewed and agree with all interventions, assessments performed and documented by Tamara, practical nursing faculty.
--- NOTE | 2018-12-18 14:58 | NUR ---
histologic technician said that patient's heart rate so far on the monitor is on the 90's.
--- NOTE | 2018-12-18 15:56 | NUR ---
Malnutrition consult: Pt PO 25% avg meals since admit 4 days w/ 50% ensures. Mild weakness w/ BLE +3 pitting edema present. BLE abrasions and scabs noted but skin intact otherwise. LBM 12/17. Pt wt has remained stable from prior admits past 2 months. Pt does not meet minimum 2 malnutrition criteria at this time; if PO continues to be low may qualify r/t morbid obesity needs. Will continue to monitor. Addendum: 12/18/18 at [address] Amended: Links added.
--- NOTE | 2018-12-18 17:03 | NUR ---
reviewed student nurse charting
[2018-12-18] MEDS: digoxin 250mcg/ml 2ml ampule IV SCH ×2 (17:12→20:11)
[2018-12-18 18:00] VITALS: BP_SYST 101; BP_SYST 113; BP_DIAS 73; BP_DIAS 77
[2018-12-18] MEDS: budesonide 0.5mg/2ml UD nebule IH SCH (19:16)
[2018-12-19 00:07] VITALS: BP 104/58
[2018-12-19] MEDS: vancomycin 125mg/5ml ORAL solution 5ml UD bottle PO SCH ×4 (01:48→21:11)
[2018-12-19] MEDS: ipratropium/albuterol 3ml nebule IH SCH ×6 (02:41→22:58)
[2018-12-19 05:37] LABS: BASOPHILS # (AUTO) 0.2 X10'3 (0-0.2); BASOPHILS % (AUTO) 1.1 % (0-1); EOSINOPHILS # (AUTO) 0.2 X10'3 (0-0.9); EOSINOPHILS % (AUTO) 1.5 % (0-6); HEMATOCRIT 29.8 % (35.0-45.0); HEMOGLOBIN 10.1 g/dl (12.0-16.0); LYMPHOCYTES # (AUTO) 1.1 X10'3 (1.1-4.8); LYMPHOCYTES % (AUTO) 7.6 % (21-51); MEAN CORPUSCULAR HEMOGLOBIN 32.2 PG (27.0-31.0); MEAN CORPUSCULAR VOLUME 94.6 FL (78-98); MEAN PLATELET VOLUME 7.8 FL (7.4-10.4); MONOCYTES # (AUTO) 1.6 X10'3 (0-0.9); MONOCYTES % (AUTO) 10.9 % (2-12); NEUTROPHILS # (AUTO) 11.3 X10'3 (1.8-7.7); NEUTROPHILS % (AUTO) 78.9 % (42-75); PLATELET COUNT 519 X10'3 (140-440); RED BLOOD COUNT 3.14 X10'6 (4.20-5.60); RED CELL DISTRIBUTION WIDTH 14.7 % (11.5-14.5); WHITE BLOOD COUNT 14.3 X10'3 (4.5-11.0)
[2018-12-19 05:44] LABS: ALBUMIN 2.1 G/DL (3.4-5.0); ANION GAP 6 (8-16); BLOOD UREA NITROGEN 20 MG/DL (7-18); BUN/CREATININE RATIO 20.8 (6.6-38.0); CHLORIDE 94 MMOL/L (99-107); CREATININE 0.96 MG/DL (0.40-0.90); GLUCOSE 137 MG/DL (70-104); POTASSIUM 4.2 MMOL/L (3.5-5.1); SODIUM 134 MMOL/L (135-145); TOTAL CARBON DIOXIDE 34.2 MMOL/L (24-32); eGFR 59 ML/MIN
--- NOTE | 2018-12-19 06:37 | NUR ---
Problems reprioritized. Patient report given, questions answered & plan of care reviewed with LEXI Reveles.
--- NOTE | 2018-12-19 06:44 | NUR ---
Patient in room [facility]. I have received report from Asmita and had the opportunity to ask questions and assume patient care.
--- NOTE | 2018-12-19 06:45 | NUR ---
Patient in room [facility]. I have received report from Aries ELLIOTT and had the opportunity to ask questions and assume patient care.
[2018-12-19 07:00] VITALS: BP 104/67
[2018-12-19 07:30] VITALS: BP 97/67
[2018-12-19 07:35] LABS: GIANT PLATELET FEW; LARGE PLATELETS FEW; PLATELET ESTIMATE INCREASED
[2018-12-19] MEDS: predniSONE 20 mg tablet PO SCH (07:58)
[2018-12-19] MEDS: carBAMazepine 100mg chewable tablet PO SCH ×2 (07:58→21:15)
[2018-12-19] MEDS: ascorbic acid 500mg tablet PO SCH ×2 (07:59→21:13)
[2018-12-19] MEDS: levetiracetam 250mg tablet PO SCH ×2 (07:59→21:14)
[2018-12-19] MEDS: apixaban 5mg tablet PO SCH ×2 (07:59→21:13)
[2018-12-19] MEDS: phenytoin sod ER 100mg capsule PO SCH ×2 (07:59→21:12)
[2018-12-19] MEDS: lactobacillus rhamnosus 10,000 MMU CELLS/CAPSULE PO SCH ×2 (07:59→21:11)
[2018-12-19] MEDS: lisinopril 20mg tablet PO SCH (08:00)
[2018-12-19] MEDS: furosemide 40mg/4ml inj IV SCH ×2 (08:00→20:00)
[2018-12-19] MEDS: digoxin 125mcg (0.125mg) tablet PO SCH (08:00)
[2018-12-19] MEDS: metoprolol tartrate 12.5mg (1/2 tablet) PO SCH ×2 (08:00→20:00)
[2018-12-19] MEDS: lactose-reduced food (Ensure Enlive) - 237ml bottle PO SCH ×3 (08:04→18:00)
[2018-12-19 08:23] VITALS: BP 97/67
[2018-12-19] MEDS: budesonide 0.5mg/2ml UD nebule IH SCH ×2 (08:37→19:17)
[2018-12-19 11:00] VITALS: BP 104/71
--- NOTE | 2018-12-19 11:57 | NUR ---
Problems reprioritized. Patient report given, questions answered & plan of care reviewed with Neeta ELLIOTT.
--- NOTE | 2018-12-19 12:04 | NUR ---
Student documentation: I have reviewed and agree with all interventions, assessments performed and documented by Destini, assisted living nursing director.
[2018-12-19] MEDS: ibuprofen 200mg tablet PO PRN (12:12)
[2018-12-19 13:46] LABS: HCG SERUM QL NEGATIVE
[2018-12-19 14:02] LABS: BETA HCG,QUANTITATIVE < 1.0 mIU/ml; LACTATE DEHYDROGENASE 351 U/L (81-234)
--- NOTE | 2018-12-19 14:38 | NUR ---
civil engineering technician said that she has to leave in about an hour. Patient has not met the required 64oz of fluid yet to get full bladder for pelvic ultrasound. Procedure rescheduled for tomorrow am instead. Patient notified about getting the full bladder done tomorrow am
--- NOTE | 2018-12-19 15:14 | NUR ---
reviewed student nurse charting
--- NOTE | 2018-12-19 16:54 | NUR ---
F/u: Pt seen by VICTORINA. Pt reports low appetite w/ 30 pound wt loss past 1.5 months since started receiving "water pills." Pt reports UBW prior 290 pounds; current is 281 pounds. Pt 25% avg meals previously first 4 days admit increased to 50-75% past 24 hours. Pt reports having GI pain after eating; is on c.diff isolation having diarrhea as well likely related to current GI distress. Pt reports will only eat fresh leafy veggies since others not tolerated well: spinach, lettuce, broccoli, cauliflower only and agrees to magic cup TIDWM. Dietary notified. Pt does report liking ensures w/ meals. At this time given PO improving, no visible signs of muscle/fat wasting, no significant weakness noted pt does not meet minimum malnutrition criteria. Will continue to monitor for additional criteria this admit. Rec: 1. continue regular diet 2. magic cup/ensure enlive TIDWM 3. honor pt food preferences 4. wt per rx Addendum: 12/19/18 at [address] Amended: Links added.
[2018-12-19 18:00] VITALS: BP 101/77
--- NOTE | 2018-12-19 18:38 | NUR ---
Problems reprioritized. Patient report given, questions answered & plan of care reviewed with Aries ELLIOTT.
--- NOTE | 2018-12-19 19:09 | NUR ---
Patient in room [facility]. I have received report from LEXI Reveles and had the opportunity to ask questions and assume patient care.
[2018-12-20] VITALS (7 sets, daily range): BP systolic 102–146; BP diastolic 62–79
[2018-12-20] MEDS: vancomycin 125mg/5ml ORAL solution 5ml UD bottle PO SCH ×4 (02:13→22:47)
[2018-12-20] MEDS: ipratropium/albuterol 3ml nebule IH SCH ×6 (02:41→23:35)
--- NOTE | 2018-12-20 06:38 | NUR ---
Problems reprioritized. Patient report given, questions answered & plan of care reviewed with LEXI Tariq.
[2018-12-20] MEDS: budesonide 0.5mg/2ml UD nebule IH SCH ×2 (07:35→19:47)
[2018-12-20] MEDS: lactose-reduced food (Ensure Enlive) - 237ml bottle PO SCH ×3 (08:00→18:03)
[2018-12-20] MEDS: furosemide 40mg/4ml inj IV SCH ×2 (08:00→22:44)
[2018-12-20] MEDS: digoxin 125mcg (0.125mg) tablet PO SCH (08:14)
[2018-12-20] MEDS: lactobacillus rhamnosus 10,000 MMU CELLS/CAPSULE PO SCH ×2 (08:15→22:47)
[2018-12-20] MEDS: levetiracetam 250mg tablet PO SCH ×2 (08:15→22:47)
[2018-12-20] MEDS: metoprolol tartrate 12.5mg (1/2 tablet) PO SCH ×2 (08:16→22:45)
[2018-12-20] MEDS: predniSONE 20 mg tablet PO SCH (08:16)
[2018-12-20] MEDS: ascorbic acid 500mg tablet PO SCH ×2 (08:17→22:47)
[2018-12-20] MEDS: carBAMazepine 100mg chewable tablet PO SCH ×2 (08:17→22:47)
[2018-12-20] MEDS: apixaban 5mg tablet PO SCH ×2 (08:18→22:47)
[2018-12-20] MEDS: phenytoin sod ER 100mg capsule PO SCH ×2 (08:18→22:46)
--- NOTE | 2018-12-20 09:00 | NUR ---
Attempted to elevate pt.'s legs as she has 3+ edema in bilat. feet. Pt. refused stating it hurts her to have her feet elevated. She did not want to get back into bed as well and continues to sit in her chair.
[2018-12-20] MEDS: lisinopril 20mg tablet PO SCH (10:31)
[2018-12-20] MEDS: HYDROcodone/acetaminophen 5mg/325mg tablet PO PRN (10:31)
--- NOTE | 2018-12-20 12:00 | NUR ---
Discussed report of dark urine from previous nursing staff. MD does not want an UA at this time.
[2018-12-20] MEDS ORDERED: furosemide 40mg/4ml inj IV ONE (12:45)
--- NOTE | 2018-12-20 12:45 | NUR ---
Pt. SBP in low 100s this AM. Staggered BP medications to asses BP. Lasix held as well. BP recently checked = 103/67 HR 97. Verified with MD that it was ok to administer 40 mg IV at this time with this BP. MD oked 40mg IV Lasix ONCE. Aware that this AMs dose was withheld.
--- NOTE | 2018-12-20 12:54 | NUR ---
aware of pt. stated pain in bilat. calves and R side of abdomen. Dopplers positive for pulses. No new orders at this time. made aware of low NA and CL per break nurse Ninoska- No new orders at this time.
--- NOTE | 2018-12-20 18:45 | NUR ---
Gave report to Beba ELLIOTT to assume pt. care.
[2018-12-20] MEDS: mag hydrox/Alum hydrox/simeth 30ml oral suspension PO PRN (23:10)
[2018-12-21] VITALS (8 sets, daily range): BP systolic 80–104; BP diastolic 46–62
[2018-12-21] MEDS: vancomycin 125mg/5ml ORAL solution 5ml UD bottle PO SCH ×4 (02:54→20:32)
[2018-12-21] MEDS: ipratropium/albuterol 3ml nebule IH SCH ×6 (04:09→23:40)
[2018-12-21 05:16] LABS: CA 27.29 199.9 U/mL (0.0-38.6)
[2018-12-21] MEDS: budesonide 0.5mg/2ml UD nebule IH SCH ×2 (07:37→19:51)
[2018-12-21] MEDS: digoxin 125mcg (0.125mg) tablet PO SCH (07:48)
[2018-12-21] MEDS: mag hydrox/Alum hydrox/simeth 30ml oral suspension PO PRN (07:48)
[2018-12-21] MEDS: phenytoin sod ER 100mg capsule PO SCH ×2 (07:50→20:31)
[2018-12-21] MEDS: levetiracetam 250mg tablet PO SCH ×2 (07:51→20:30)
[2018-12-21] MEDS: carBAMazepine 100mg chewable tablet PO SCH ×2 (07:51→20:31)
[2018-12-21] MEDS: ascorbic acid 500mg tablet PO SCH ×2 (07:52→20:31)
[2018-12-21] MEDS: apixaban 5mg tablet PO SCH ×2 (07:52→20:31)
[2018-12-21] MEDS: lactobacillus rhamnosus 10,000 MMU CELLS/CAPSULE PO SCH ×2 (07:52→20:31)
[2018-12-21] MEDS: predniSONE 20 mg tablet PO SCH (07:53)
[2018-12-21] MEDS: ondansetron/PF 4mg/2ml inj IV PRN (07:55)
[2018-12-21] MEDS: metoprolol tartrate 12.5mg (1/2 tablet) PO SCH ×2 (08:00→20:00)
[2018-12-21] MEDS: lactose-reduced food (Ensure Enlive) - 237ml bottle PO SCH ×3 (08:00→18:01)
[2018-12-21] MEDS: lisinopril 20mg tablet PO SCH (08:00)
[2018-12-21] MEDS: furosemide 40mg/4ml inj IV SCH ×2 (08:00→20:00)
[2018-12-21 08:11] LABS: AFP,SERUM, TUMOR MARKER 1.2 ng/mL (0.0-8.3); CARCINOEMBRYONIC ANTIGEN 2.9 ng/mL (0.0-4.7)
[2018-12-21] MEDS ORDERED: normal saline 500ml IV soln 500 ML IV ONE (10:50)
--- NOTE | 2018-12-21 10:50 | NUR ---
PAGER ID: [phone] MESSAGE: [facility] [id number] Re: Benjamin 352 BP 71/47 HR 97, then manual
--- NOTE | 2018-12-21 12:00 | NUR ---
SBP THIS AM IN 80S/LOW 90S. MADE AWARE. 500 NS BOLUS ORDERED. WILL CONT. TO MONITOR PT. BP ON MY SHIFT.
[2018-12-21 14:10] LABS: BASOPHILS # (AUTO) 0.1 X10'3 (0-0.2); BASOPHILS % (AUTO) 0.6 % (0-1); EOSINOPHILS # (AUTO) 0.1 X10'3 (0-0.9); EOSINOPHILS % (AUTO) 0.8 % (0-6); HEMATOCRIT 30.7 % (35.0-45.0); HEMOGLOBIN 10.1 g/dl (12.0-16.0); LYMPHOCYTES # (AUTO) 0.6 X10'3 (1.1-4.8); LYMPHOCYTES % (AUTO) 4.6 % (21-51); MEAN CORPUSCULAR HEMOGLOBIN 31.6 PG (27.0-31.0); MEAN CORPUSCULAR HGB CONC 32.8 g/dL (33.0-36.5); MEAN CORPUSCULAR VOLUME 96.4 FL (78-98); MEAN PLATELET VOLUME 7.5 FL (7.4-10.4); MONOCYTES # (AUTO) 0.9 X10'3 (0-0.9); MONOCYTES % (AUTO) 7.1 % (2-12); NEUTROPHILS # (AUTO) 10.5 X10'3 (1.8-7.7); NEUTROPHILS % (AUTO) 86.9 % (42-75); PLATELET COUNT 529 X10'3 (140-440); RED BLOOD COUNT 3.18 X10'6 (4.20-5.60); RED CELL DISTRIBUTION WIDTH 14.9 % (11.5-14.5); WHITE BLOOD COUNT 12.1 X10'3 (4.5-11.0)
[2018-12-21 14:23] LABS: ALANINE AMINOTRANSFERASE 19 U/L (12-78); ALBUMIN 2.1 G/DL (3.4-5.0); ALBUMIN/GLOBULIN RATIO 0.4 (1.1-1.5); ALKALINE PHOSPHATASE 79 IU/L (46-116); ANION GAP 5 (8-16); ASPARTATE AMINO TRANSFERASE 19 U/L (10-37); BILIRUBIN,TOTAL 0.2 MG/DL (0.1-1.0); BLOOD UREA NITROGEN 27 MG/DL (7-18); BUN/CREATININE RATIO 21.4 (6.6-38.0); CALCIUM 8.4 MG/DL (8.5-10.1); CHLORIDE 96 MMOL/L (99-107); CREATININE 1.26 MG/DL (0.40-0.90); GLUCOSE 206 MG/DL (70-104); POTASSIUM 4.8 MMOL/L (3.5-5.1); SODIUM 136 MMOL/L (135-145); TOTAL CARBON DIOXIDE 34.7 MMOL/L (24-32); TOTAL PROTEIN 7.5 G/DL (6.4-8.2); eGFR 43 ML/MIN
--- NOTE | 2018-12-21 18:25 | NUR ---
Gave report to Beba ELLIOTT.
--- NOTE | 2018-12-21 18:32 | NUR ---
PAGER ID: [phone] MESSAGE: Sujit Alexander [id number] Pt. has a fever now- going off shift. Please note most recent vitals. Do you want a lactic? Hold all future BP meds? Thank you. Surgical
[2018-12-22] VITALS: BP 111/50
[2018-12-22] MEDS: mag hydrox/Alum hydrox/simeth 30ml oral suspension PO PRN ×2 (01:42→07:27)
[2018-12-22] MEDS: vancomycin 125mg/5ml ORAL solution 5ml UD bottle PO SCH ×4 (01:42→20:52)
[2018-12-22] MEDS: ipratropium/albuterol 3ml nebule IH SCH ×6 (04:00→23:15)
--- NOTE | 2018-12-22 06:36 | NUR ---
Patient in room [facility]. I have received report from Beba ELLIOTT and had the opportunity to ask questions and assume patient care.
[2018-12-22] MEDS: carBAMazepine 100mg chewable tablet PO SCH ×2 (07:27→20:50)
[2018-12-22] MEDS: digoxin 125mcg (0.125mg) tablet PO SCH (07:27)
[2018-12-22] MEDS: predniSONE 20 mg tablet PO SCH (07:28)
[2018-12-22] MEDS: ascorbic acid 500mg tablet PO SCH ×2 (07:28→20:49)
[2018-12-22] MEDS: phenytoin sod ER 100mg capsule PO SCH ×2 (07:28→20:51)
[2018-12-22] MEDS: lactobacillus rhamnosus 10,000 MMU CELLS/CAPSULE PO SCH ×2 (07:28→20:50)
[2018-12-22] MEDS: apixaban 5mg tablet PO SCH ×2 (07:28→20:51)
[2018-12-22] MEDS: levetiracetam 250mg tablet PO SCH ×2 (07:28→20:49)
[2018-12-22] MEDS: budesonide 0.5mg/2ml UD nebule IH SCH ×2 (07:47→19:08)
[2018-12-22 08:00] VITALS: BP 98/59
[2018-12-22] MEDS: furosemide 40mg/4ml inj IV SCH ×2 (08:00→20:00)
[2018-12-22] MEDS: lisinopril 20mg tablet PO SCH (08:00)
[2018-12-22] MEDS: metoprolol tartrate 12.5mg (1/2 tablet) PO SCH ×2 (08:00→20:52)
[2018-12-22] MEDS: lactose-reduced food (Ensure Enlive) - 237ml bottle PO SCH ×3 (08:45→19:00)
--- NOTE | 2018-12-22 09:09 | NUR ---
PAGER ID: [phone] MESSAGE: [id number] Sujit Alexander: Held AM scheduled Lisinopril, Metoprolol and Lasix, BP Mid 90's Systolic rechecked and confirmed. Thanks Christy [phone]
--- NOTE | 2018-12-22 11:37 | NUR ---
I have reviewed and agree with all medications administered and interventions performed by MULTIFOLD OPERATOR Student Antwan Kuo.
[2018-12-22] MEDS: acetaminophen 325mg tablet PO PRN (12:06)
--- NOTE | 2018-12-22 16:06 | NUR ---
Reassessment: Pt s/p thoracentesis and paracentesis with total of 6150 mL fluid removed and fluid consistent with adenocarcinoma per MD notes. Pt possibly with underlying liver cirrhosis and CHF as well per MD notes. Patient's PO intake continues to fluctuate averaging 25-50% up to 100% at lunch today with 75-100% Ensure Enlive. Pt has adequate energy stores to support mild caloric deficit, closely meeting nutrient needs given good PO intake of ONS with intake of meals at this time. MD has discussed findings with the patient about the possibility of underlying cancer with a poor prognosis if malignancy is metastatic, likely depression to impact PO intake. SW has been consulted and CM following. LBM 12/22, documented as diarrhea. Per MD notes C.diff improving. Will continue to follow closely. F/u: Pt seen by VICTORINA. Pt reports low appetite w/ 30 pound wt loss past 1.5 months since started receiving "water pills." Pt reports UBW prior 290 pounds; current is 281 pounds. Pt 25% avg meals previously first 4 days admit increased to 50-75% past 24 hours. Pt reports having GI pain after eating; is on c.diff isolation having diarrhea as well likely related to current GI distress. Pt reports will only eat fresh leafy veggies since others not tolerated well: spinach, lettuce, broccoli, cauliflower only and agrees to magic cup TIDWM. Dietary notified. Pt does report liking ensures w/ meals. At this time given PO improving, no visible signs of muscle/fat wasting, no significant weakness noted pt does not meet minimum malnutrition criteria. Will continue to monitor for additional criteria this admit. Rec: 1. continue regular diet 2. magic cup/ensure enlive TIDWM 3. honor pt food preferences; encourage PO intake 4. wt per rx Addendum: 12/22/18 at [address] Amended: Links added.
[2018-12-22 18:00] VITALS: BP 107/64
--- NOTE | 2018-12-22 18:31 | NUR ---
Problems reprioritized. Patient report given, questions answered & plan of care reviewed with Lien ELLIOTT.
--- NOTE | 2018-12-22 18:35 | NUR ---
Patient in room [facility]. I have received report from BRANDI ELLIOTT and had the opportunity to ask questions and assume patient care.
[2018-12-22] MEDS: ibuprofen 200mg tablet PO PRN (23:28)
[2018-12-23] VITALS: BP 97/54
[2018-12-23] MEDS: vancomycin 125mg/5ml ORAL solution 5ml UD bottle PO SCH ×4 (02:40→20:20)
[2018-12-23] MEDS: ipratropium/albuterol 3ml nebule IH SCH ×6 (03:04→23:23)
--- NOTE | 2018-12-23 06:30 | NUR ---
Problems reprioritized. Patient report given, questions answered & plan of care reviewed with LINDA ELLIOTT.
--- NOTE | 2018-12-23 06:55 | NUR ---
Patient in room [facility]. I have received report from Lien ELLIOTT and had the opportunity to ask questions and assume patient care.
[2018-12-23 07:00] VITALS: BP 106/63
[2018-12-23] MEDS: budesonide 0.5mg/2ml UD nebule IH SCH ×2 (07:11→23:23)
[2018-12-23] MEDS: lactose-reduced food (Ensure Enlive) - 237ml bottle PO SCH ×3 (08:00→18:00)
[2018-12-23] MEDS: predniSONE 20 mg tablet PO SCH (08:26)
[2018-12-23] MEDS: ascorbic acid 500mg tablet PO SCH ×2 (08:27→20:18)
[2018-12-23] MEDS: lisinopril 20mg tablet PO SCH (08:27)
[2018-12-23] MEDS: phenytoin sod ER 100mg capsule PO SCH ×2 (08:27→20:20)
[2018-12-23] MEDS: apixaban 5mg tablet PO SCH ×2 (08:28→20:19)
[2018-12-23] MEDS: digoxin 125mcg (0.125mg) tablet PO SCH (08:28)
[2018-12-23] MEDS: carBAMazepine 100mg chewable tablet PO SCH ×2 (08:28→20:20)
[2018-12-23] MEDS: metoprolol tartrate 12.5mg (1/2 tablet) PO SCH ×2 (08:28→20:00)
[2018-12-23] MEDS: lactobacillus rhamnosus 10,000 MMU CELLS/CAPSULE PO SCH ×2 (08:28→20:18)
[2018-12-23] MEDS: levetiracetam 250mg tablet PO SCH ×2 (08:28→20:19)
[2018-12-23 11:00] VITALS: BP 80/50
[2018-12-23] MEDS: furosemide 40mg/4ml inj IV SCH ×2 (11:00→20:00)
--- NOTE | 2018-12-23 11:20 | NUR ---
Dr. Arellano notified about BP 80/50 and that patient received her morning dos e of Lopressor and Lisinopril only - Lasix was held this am. No new order received from her
[2018-12-23 18:00] VITALS: BP 88/50
--- NOTE | 2018-12-23 18:23 | NUR ---
Problems reprioritized. Patient report given, questions answered & plan of care reviewed with Lien ELLIOTT.
--- NOTE | 2018-12-23 18:30 | NUR ---
Patient in room [facility]. I have received report from LINDA ELLIOTT and had the opportunity to ask questions and assume patient care.
[2018-12-24] VITALS: BP 101/54
--- NOTE | 2018-12-24 00:32 | NUR ---
CALLED DR. GRIJALVA AND WAS INFORMED OF INCREASED HR I30'S WITH BP 98/52 AND PATIENT DID NOT GET HER METOPROLOL AT NIGHT BECAUSE OF DECREASED BP WITH ORDER TO DO EKG NOW.
--- NOTE | 2018-12-24 01:00 | NUR ---
DR. GRIJALVA CALLED WITH EKG RESULT ASKED WHERE HE WAS SO CAN SHOW EKG TO HIM BUT ASKED TO READ EKG RESULT AND SAID IT'S OK. NO FURTHER ORDERS MADE.
[2018-12-24] MEDS: vancomycin 125mg/5ml ORAL solution 5ml UD bottle PO SCH ×4 (01:31→20:11)
[2018-12-24] MEDS: ibuprofen 200mg tablet PO PRN (01:31)
[2018-12-24] MEDS: mag hydrox/Alum hydrox/simeth 30ml oral suspension PO PRN (03:35)
[2018-12-24] MEDS: ipratropium/albuterol 3ml nebule IH SCH ×6 (04:21→23:36)
--- NOTE | 2018-12-24 06:30 | NUR ---
Problems reprioritized. Patient report given, questions answered & plan of care reviewed with JONATAN ELLIOTT.
--- NOTE | 2018-12-24 06:53 | NUR ---
Patient in room [facility]. I have received report from Maria Alejandra Bess RN and had the opportunity to ask questions and assume patient care.
[2018-12-24 07:00] VITALS: BP 87/53
[2018-12-24] MEDS: lisinopril 20mg tablet PO SCH (08:00)
[2018-12-24] MEDS: metoprolol tartrate 12.5mg (1/2 tablet) PO SCH ×2 (08:00→20:09)
[2018-12-24] MEDS: furosemide 40mg/4ml inj IV SCH (08:44)
[2018-12-24] MEDS: digoxin 125mcg (0.125mg) tablet PO SCH (08:45)
[2018-12-24] MEDS: lactobacillus rhamnosus 10,000 MMU CELLS/CAPSULE PO SCH ×2 (08:45→20:09)
[2018-12-24] MEDS: ascorbic acid 500mg tablet PO SCH ×2 (08:46→20:10)
[2018-12-24] MEDS: predniSONE 20 mg tablet PO SCH (08:46)
[2018-12-24] MEDS: phenytoin sod ER 100mg capsule PO SCH ×2 (08:46→20:11)
[2018-12-24] MEDS: levetiracetam 250mg tablet PO SCH ×2 (08:46→20:07)
[2018-12-24] MEDS: apixaban 5mg tablet PO SCH ×2 (08:46→20:07)
[2018-12-24] MEDS: carBAMazepine 100mg chewable tablet PO SCH ×2 (08:47→20:08)
[2018-12-24] MEDS: lactose-reduced food (Ensure Enlive) - 237ml bottle PO SCH ×3 (08:53→18:00)
[2018-12-24] MEDS: budesonide 0.5mg/2ml UD nebule IH SCH ×2 (09:00→23:37)
[2018-12-24 12:00] VITALS: BP 80/50
[2018-12-24] MEDS: HYDROcodone/acetaminophen 5mg/325mg tablet PO PRN ×2 (12:04→20:20)
[2018-12-24 18:00] VITALS: BP 101/64
--- NOTE | 2018-12-24 18:45 | NUR ---
Called Dr Arellano regarding pt having V-tack episode of 133 per telli nurse. Pt had 2 other episodes in the day, 1 during BM, 1 while showering. vitals 99/75, HR133, RR18. Dr Arellano stated that she did not wanted to give her anything that will drop her BP even more. Since pt is asymptomatic, suggested KRISTEL nurse to "watch" her closely. Sarthak HUMPHRIES nurse notified of events and 's orders.
--- NOTE | 2018-12-24 18:48 | NUR ---
Problems reprioritized. Patient report given, questions answered & plan of care reviewed with Sarthak ELLIOTT.
--- NOTE | 2018-12-24 18:56 | NUR ---
Patient in room [facility]. I have received report from LEXI Reyes and had the opportunity to ask questions and assume patient care.
--- NOTE | 2018-12-24 19:52 | NUR ---
(1934)Paged hospitalist to inform him that the patient has a sustained heart rate in the 130's. BP was 101/64, heart rate 134 when tech took vitals. technical illustrator called to let me know she has sustained in the 130's. Patent was lying in bed, and is asymptomatic at this time. No new orders were given. Will continue to monitor.
[2018-12-24] MEDS: acetaminophen 325mg tablet PO PRN (21:41)
[2018-12-25] VITALS: BP 107/64
[2018-12-25] MEDS: vancomycin 125mg/5ml ORAL solution 5ml UD bottle PO SCH ×4 (03:01→19:44)
[2018-12-25] MEDS: ipratropium/albuterol 3ml nebule IH SCH ×6 (03:46→23:38)
--- NOTE | 2018-12-25 06:30 | NUR ---
Patient in room [facility]. I have received report from LEXI Chris and had the opportunity to ask questions and assume patient care.
--- NOTE | 2018-12-25 06:35 | NUR ---
Problems reprioritized. Patient report given, questions answered & plan of care reviewed with LEXI Xiao.
[2018-12-25] MEDS: mag hydrox/Alum hydrox/simeth 30ml oral suspension PO PRN (07:10)
[2018-12-25] MEDS: predniSONE 20 mg tablet PO SCH (07:11)
[2018-12-25] MEDS: lactobacillus rhamnosus 10,000 MMU CELLS/CAPSULE PO SCH ×2 (07:11→19:43)
[2018-12-25] MEDS: ascorbic acid 500mg tablet PO SCH ×2 (07:11→19:44)
[2018-12-25] MEDS: levetiracetam 250mg tablet PO SCH ×2 (07:12→19:43)
[2018-12-25] MEDS: apixaban 5mg tablet PO SCH ×2 (07:12→19:44)
[2018-12-25] MEDS: phenytoin sod ER 100mg capsule PO SCH ×2 (07:12→19:44)
[2018-12-25] MEDS: carBAMazepine 100mg chewable tablet PO SCH ×2 (07:16→19:42)
[2018-12-25] MEDS: digoxin 125mcg (0.125mg) tablet PO SCH (07:16)
[2018-12-25] MEDS: budesonide 0.5mg/2ml UD nebule IH SCH ×2 (07:32→18:57)
--- NOTE | 2018-12-25 07:43 | NUR ---
Patient in room [facility]. I have received report from LEXI Chris and had the opportunity to ask questions and assume patient care.
[2018-12-25 08:00] VITALS: BP 94/61
[2018-12-25] MEDS: metoprolol tartrate 12.5mg (1/2 tablet) PO SCH (08:00)
[2018-12-25] MEDS ORDERED: lisinopril 5mg tablet PO SCH (08:00)
[2018-12-25] MEDS: lactose-reduced food (Ensure Enlive) - 237ml bottle PO SCH ×3 (08:00→18:06)
[2018-12-25] MEDS ORDERED: furosemide 40mg/4ml inj IV SCH (08:00)
[2018-12-25 09:00] VITALS: BP 92/58
[2018-12-25] MEDS ORDERED: potassium CL 10mEq/100ml bag 100 ML IV PRN (09:05)
[2018-12-25] MEDS ORDERED: magnesium 4gm in 100ml NS 100 ML IV PRN (09:05)
[2018-12-25] MEDS ORDERED: magnesium Cl slow-release 64mg tablet PO PRN (09:05)
[2018-12-25] MEDS ORDERED: potassium Cl 20 mEq SR tablet PO PRN ×2 (09:05)
[2018-12-25] MEDS: HYDROcodone/acetaminophen 5mg/325mg tablet PO PRN (10:01)
[2018-12-25 10:43] LABS: BASOPHILS # (AUTO) 0.1 X10'3 (0-0.2); BASOPHILS % (AUTO) 0.5 % (0-1); EOSINOPHILS # (AUTO) 0.2 X10'3 (0-0.9); EOSINOPHILS % (AUTO) 1.6 % (0-6); HEMATOCRIT 28.6 % (35.0-45.0); HEMOGLOBIN 9.8 g/dl (12.0-16.0); LYMPHOCYTES # (AUTO) 0.6 X10'3 (1.1-4.8); LYMPHOCYTES % (AUTO) 5.3 % (21-51); MEAN CORPUSCULAR HEMOGLOBIN 32.5 PG (27.0-31.0); MEAN CORPUSCULAR HGB CONC 34.4 g/dL (33.0-36.5); MEAN CORPUSCULAR VOLUME 94.2 FL (78-98); MEAN PLATELET VOLUME 7.8 FL (7.4-10.4); MONOCYTES # (AUTO) 0.9 X10'3 (0-0.9); MONOCYTES % (AUTO) 9.2 % (2-12); NEUTROPHILS # (AUTO) 8.6 X10'3 (1.8-7.7); NEUTROPHILS % (AUTO) 83.4 % (42-75); PLATELET COUNT 529 X10'3 (140-440); RED BLOOD COUNT 3.03 X10'6 (4.20-5.60); RED CELL DISTRIBUTION WIDTH 14.8 % (11.5-14.5); WHITE BLOOD COUNT 10.4 X10'3 (4.5-11.0)
[2018-12-25 10:51] LABS: ALANINE AMINOTRANSFERASE 17 U/L (12-78); ALBUMIN 2.1 G/DL (3.4-5.0); ALBUMIN/GLOBULIN RATIO 0.4 (1.1-1.5); ALKALINE PHOSPHATASE 79 IU/L (46-116); ANION GAP 5 (8-16); ASPARTATE AMINO TRANSFERASE 20 U/L (10-37); BILIRUBIN,TOTAL 0.3 MG/DL (0.1-1.0); BLOOD UREA NITROGEN 30 MG/DL (7-18); BUN/CREATININE RATIO 30.6 (6.6-38.0); CALCIUM 8.6 MG/DL (8.5-10.1); CHLORIDE 94 MMOL/L (99-107); CREATININE 0.98 MG/DL (0.40-0.90); GLUCOSE 177 MG/DL (70-104); POTASSIUM 4.2 MMOL/L (3.5-5.1); SODIUM 135 MMOL/L (135-145); TOTAL CARBON DIOXIDE 36.1 MMOL/L (24-32); TOTAL PROTEIN 7.3 G/DL (6.4-8.2); eGFR 57 ML/MIN
[2018-12-25 11:00] VITALS: BP 92/58
[2018-12-25] MEDS ORDERED: ibuprofen 200mg tablet PO PRN (13:20)
--- NOTE | 2018-12-25 17:00 | NUR ---
Reassessment: Pt PO 100% meals and ONS past 2 days slowly improving since admit. LBM 12/24. S/p 5.5L paracentesis showing adenocarcinoma per MD note. Receiving vitamin C. Will continue to monitor. Rec: 1. continue regular diet 2. magic cup/ensure enlive TIDWM 3. honor pt food preferences; encourage PO intake 4. wt per rx Addendum: 12/25/18 at [address] Amended: Links added.
[2018-12-25 18:00] VITALS: BP 106/64
--- NOTE | 2018-12-25 18:06 | NUR ---
Problems reprioritized. Patient report given, questions answered & plan of care reviewed with LEXI Chris.
--- NOTE | 2018-12-25 18:07 | NUR ---
Patient in room [facility]. I have received report from Ninoska RN and Felecia nursing home aide and had the opportunity to ask questions and assume patient care.
--- NOTE | 2018-12-25 18:17 | NUR ---
Student documentation: I have reviewed and agree with all interventions, assessments performed and documented by Felecia Whaley.
[2018-12-26] VITALS: BP 104/64
[2018-12-26] MEDS: vancomycin 125mg/5ml ORAL solution 5ml UD bottle PO SCH ×4 (02:09→20:06)
[2018-12-26] MEDS: mag hydrox/Alum hydrox/simeth 30ml oral suspension PO PRN (03:48)
[2018-12-26] MEDS: ipratropium/albuterol 3ml nebule IH SCH ×6 (04:02→23:30)
[2018-12-26 04:59] LABS: BASOPHILS # (AUTO) 0.2 X10'3 (0-0.2); BASOPHILS % (AUTO) 1.5 % (0-1); EOSINOPHILS # (AUTO) 0.3 X10'3 (0-0.9); EOSINOPHILS % (AUTO) 2.6 % (0-6); HEMATOCRIT 29.4 % (35.0-45.0); LYMPHOCYTES # (AUTO) 1.1 X10'3 (1.1-4.8); LYMPHOCYTES % (AUTO) 10.9 % (21-51); MEAN CORPUSCULAR HEMOGLOBIN 32.2 PG (27.0-31.0); MEAN CORPUSCULAR HGB CONC 34.1 g/dL (33.0-36.5); MEAN CORPUSCULAR VOLUME 94.6 FL (78-98); MEAN PLATELET VOLUME 7.5 FL (7.4-10.4); MONOCYTES # (AUTO) 1.3 X10'3 (0-0.9); MONOCYTES % (AUTO) 12.4 % (2-12); NEUTROPHILS # (AUTO) 7.5 X10'3 (1.8-7.7); NEUTROPHILS % (AUTO) 72.6 % (42-75); PLATELET COUNT 571 X10'3 (140-440); RED BLOOD COUNT 3.11 X10'6 (4.20-5.60); RED CELL DISTRIBUTION WIDTH 14.7 % (11.5-14.5); WHITE BLOOD COUNT 10.3 X10'3 (4.5-11.0)
[2018-12-26 05:13] LABS: ALANINE AMINOTRANSFERASE 15 U/L (12-78); ALBUMIN/GLOBULIN RATIO 0.4 (1.1-1.5); ALKALINE PHOSPHATASE 78 IU/L (46-116); ANION GAP 7 (8-16); ASPARTATE AMINO TRANSFERASE 19 U/L (10-37); BILIRUBIN,TOTAL 0.3 MG/DL (0.1-1.0); BLOOD UREA NITROGEN 30 MG/DL (7-18); BUN/CREATININE RATIO 33.3 (6.6-38.0); CALCIUM 8.7 MG/DL (8.5-10.1); CHLORIDE 95 MMOL/L (99-107); GLUCOSE 136 MG/DL (70-104); MAGNESIUM 2.2 MG/DL (1.5-2.4); POTASSIUM 4.5 MMOL/L (3.5-5.1); SODIUM 134 MMOL/L (135-145); TOTAL CARBON DIOXIDE 32.5 MMOL/L (24-32); TOTAL PROTEIN 7.2 G/DL (6.4-8.2); eGFR 63 ML/MIN
--- NOTE | 2018-12-26 06:00 | NUR ---
Patient in room [facility]. I have received report from LEXI Chris and had the opportunity to ask questions and assume patient care.
--- NOTE | 2018-12-26 06:14 | NUR ---
Problems reprioritized. Patient report given, questions answered & plan of care reviewed with LEXI Cordero.
[2018-12-26 07:00] VITALS: BP 125/82
[2018-12-26] MEDS: budesonide 0.5mg/2ml UD nebule IH SCH ×2 (07:15→19:49)
[2018-12-26] MEDS: apixaban 5mg tablet PO SCH ×2 (07:45→20:06)
[2018-12-26] MEDS: lactobacillus rhamnosus 10,000 MMU CELLS/CAPSULE PO SCH ×2 (07:52→20:05)
[2018-12-26] MEDS: phenytoin sod ER 100mg capsule PO SCH ×2 (07:52→20:05)
[2018-12-26] MEDS: digoxin 125mcg (0.125mg) tablet PO SCH (07:52)
[2018-12-26] MEDS: carBAMazepine 100mg chewable tablet PO SCH ×2 (07:53→20:07)
[2018-12-26] MEDS: levetiracetam 250mg tablet PO SCH ×2 (07:53→20:06)
[2018-12-26] MEDS: metoprolol succinate 25mg (24-HOUR) SR. Tablet PO SCH (07:53)
[2018-12-26] MEDS: predniSONE 20 mg tablet PO SCH (07:53)
[2018-12-26] MEDS: ascorbic acid 500mg tablet PO SCH ×2 (07:53→20:06)
[2018-12-26] MEDS: lactose-reduced food (Ensure Enlive) - 237ml bottle PO SCH ×3 (08:46→18:13)
[2018-12-26 11:00] VITALS: BP 102/71
[2018-12-26 13:00] VITALS: BP 80/40
[2018-12-26 13:30] VITALS: BP 91/32
[2018-12-26] MEDS ORDERED: albumin (human) 25% 100 ML IV solution IV ONE (13:40)
[2018-12-26] MEDS: HYDROcodone/acetaminophen 5mg/325mg tablet PO PRN ×2 (17:44→23:14)
--- NOTE | 2018-12-26 18:36 | NUR ---
Problems reprioritized. Patient report given, questions answered & plan of care reviewed with LEXI Tabares.
[2018-12-26 20:00] VITALS: BP 103/66
[2018-12-27] VITALS: BP 90/55
[2018-12-27] MEDS: vancomycin 125mg/5ml ORAL solution 5ml UD bottle PO SCH ×2 (02:54→08:38)
[2018-12-27] MEDS: ipratropium/albuterol 3ml nebule IH SCH ×3 (03:00→11:00)
[2018-12-27] MEDS: HYDROcodone/acetaminophen 5mg/325mg tablet PO PRN ×2 (03:41→08:35)
[2018-12-27] MEDS: ondansetron/PF 4mg/2ml inj IV PRN (03:57)
[2018-12-27 04:12] LABS: BASOPHILS # (AUTO) 0.1 X10'3 (0-0.2); BASOPHILS % (AUTO) 0.6 % (0-1); EOSINOPHILS # (AUTO) 0.3 X10'3 (0-0.9); EOSINOPHILS % (AUTO) 2.7 % (0-6); HEMATOCRIT 27.1 % (35.0-45.0); HEMOGLOBIN 9.3 g/dl (12.0-16.0); LYMPHOCYTES # (AUTO) 0.8 X10'3 (1.1-4.8); LYMPHOCYTES % (AUTO) 8.9 % (21-51); MEAN CORPUSCULAR HEMOGLOBIN 32.3 PG (27.0-31.0); MEAN CORPUSCULAR HGB CONC 34.3 g/dL (33.0-36.5); MEAN CORPUSCULAR VOLUME 94.1 FL (78-98); MEAN PLATELET VOLUME 7.5 FL (7.4-10.4); MONOCYTES # (AUTO) 1.2 X10'3 (0-0.9); MONOCYTES % (AUTO) 12.9 % (2-12); NEUTROPHILS % (AUTO) 74.9 % (42-75); PLATELET COUNT 508 X10'3 (140-440); RED BLOOD COUNT 2.88 X10'6 (4.20-5.60); RED CELL DISTRIBUTION WIDTH 14.6 % (11.5-14.5); WHITE BLOOD COUNT 9.4 X10'3 (4.5-11.0)
[2018-12-27 04:22] LABS: ALANINE AMINOTRANSFERASE 12 U/L (12-78); ALBUMIN/GLOBULIN RATIO 0.4 (1.1-1.5); ALKALINE PHOSPHATASE 65 IU/L (46-116); ANION GAP 6 (8-16); ASPARTATE AMINO TRANSFERASE 16 U/L (10-37); BILIRUBIN,TOTAL 0.2 MG/DL (0.1-1.0); BLOOD UREA NITROGEN 25 MG/DL (7-18); BUN/CREATININE RATIO 31.3 (6.6-38.0); CALCIUM 8.8 MG/DL (8.5-10.1); CHLORIDE 98 MMOL/L (99-107); GLUCOSE 125 MG/DL (70-104); MAGNESIUM 2.1 MG/DL (1.5-2.4); PHOSPHORUS 3.8 MG/DL (2.3-4.5); POTASSIUM 4.2 MMOL/L (3.5-5.1); SODIUM 137 MMOL/L (135-145); TOTAL CARBON DIOXIDE 33.5 MMOL/L (24-32); TOTAL PROTEIN 6.5 G/DL (6.4-8.2); eGFR 72 ML/MIN
[2018-12-27 07:20] VITALS: BP 92/57
[2018-12-27 08:00] VITALS: BP 106/61
[2018-12-27] MEDS: metoprolol succinate 25mg (24-HOUR) SR. Tablet PO SCH (08:00)
[2018-12-27] MEDS: digoxin 125mcg (0.125mg) tablet PO SCH (08:34)
[2018-12-27] MEDS: apixaban 5mg tablet PO SCH (08:34)
[2018-12-27] MEDS: levetiracetam 250mg tablet PO SCH (08:35)
[2018-12-27] MEDS: lactobacillus rhamnosus 10,000 MMU CELLS/CAPSULE PO SCH (08:35)
[2018-12-27] MEDS: carBAMazepine 100mg chewable tablet PO SCH (08:36)
[2018-12-27] MEDS: phenytoin sod ER 100mg capsule PO SCH (08:36)
[2018-12-27] MEDS: ascorbic acid 500mg tablet PO SCH (08:37)
[2018-12-27] MEDS: predniSONE 20 mg tablet PO SCH (08:37)
[2018-12-27] MEDS: mag hydrox/Alum hydrox/simeth 30ml oral suspension PO PRN (08:38)
[2018-12-27] MEDS: lactose-reduced food (Ensure Enlive) - 237ml bottle PO SCH (08:39)
[2018-12-27] MEDS: budesonide 0.5mg/2ml UD nebule IH SCH (09:00)
--- NOTE | 2018-12-27 10:44 | NUR ---
RESOLVED. Addendum: 12/27/18 at 1045 by Unique Lemus RN Amended: Links added.
[2018-12-27] MEDS ORDERED: PRED10TA23 PO (11:33)
[2018-12-27] MEDS ORDERED: LACT-237 PO (11:33)
[2018-12-27] MEDS ORDERED: METO-395 PO (11:33)
[2018-12-27] MEDS ORDERED: VANC5VIA PO (11:33)
[2018-12-27] MEDS ORDERED: DIGO125T5 PO (11:33)
--- NOTE | 2018-12-27 12:50 | NUR ---
patient and friend in room. Discharge instructions given and reviewed with patient and friend. Emphasis on [facility] appointment [facility] and for patient to call Dr Urbina for oncology appointment. patient verbalizes understanding and importance of follow ups.
--- NOTE | 2018-12-27 12:50 | NUR ---
Patient discharged home with friend via taxi. stable and appropriate for DC. IV removed. consulting practice director removed. New prescription given to patient to take to [facility]. discharge instructions given and reviewed with patient multiple times, patient verbalized understanding. All belongings taken from room.
== END 2018-12-27 12:58 | disposition home health service (06) | DRG 871 ==
LOC: ER 02:33 → ED HOLD 05:23 → EDBEDREQ 05:47 → SUR 3N 08:08 → CMPBEDREQ 12-17 08:40
PROVIDERS: ADMIT Hospitalist; ATTEND Family Medicine
PROC: 0W9B3ZZ Drainage of Left Pleural Cavity, Percutaneous Approach (ICD-10-PCS; principal; 2018-12-15)
PROC: 0W9G3ZZ Drainage of Peritoneal Cavity, Percutaneous Approach (ICD-10-PCS; 2018-12-15)
PROC: 0W9G3ZZ Drainage of Peritoneal Cavity, Percutaneous Approach (ICD-10-PCS; 2018-12-26)
DX: A41.9 Sepsis, unspecified organism (principal); E43 Unspecified severe protein-calorie malnutrition; I50.33 Acute on chronic diastolic (congestive) heart failure; J96.21 Acute and chronic respiratory failure with hypoxia; C56.9 Malignant neoplasm of unspecified ovary; A04.72 Enterocolitis due to Clostridium difficile, not specified as recurrent; R18.8 Other ascites; E66.2 Morbid (severe) obesity with alveolar hypoventilation; Z68.42 Body mass index [BMI] 45.0-49.9, adult; J91.0 Malignant pleural effusion; G40.909 Epilepsy, unspecified, not intractable, without status epilepticus; I71.2 Thoracic aortic aneurysm, without rupture; M19.90 Unspecified osteoarthritis, unspecified site; I11.0 Hypertensive heart disease with heart failure; I95.9 Hypotension, unspecified; J44.9 Chronic obstructive pulmonary disease, unspecified; K76.89 Other specified diseases of liver; Z79.01 Long term (current) use of anticoagulants; Z86.711 Personal history of pulmonary embolism; Z87.01 Personal history of pneumonia (recurrent); Z88.1 Allergy status to other antibiotic agents; Z88.0 Allergy status to penicillin; Z88.8 Allergy status to other drugs, medicaments and biological substances
CPT/HCPCS: 32555; 36415; 49083; 71045; 71250; 74176; 74177; 76830; 76857; 76937; 80048; 80053; 80162; 80185; 82042; 82103; 82378; 82945; 83605; 83615; 83735; 83880; 84100; 84484; 84702; 84703; 85025; 85610; 85730; 86300; 86301; 86304; 87040; 87070; 87081; 87324; 87449; 89051; 93005; 94640; 94760; 96374; 97110; 97112; 97116; 97161; 97164; 97530; 99285; G0378; J1160; J1940; J2405; J7030; J7040; J7512; J7626; P9047; Q9967

== ENCOUNTER 2019-01-16 10:14 | Inpatient (IN) | payer MEDICAID, OTHER ==
[2019-01-16] VITALS (8 sets, daily range): BP systolic 93–129; BP diastolic 54–91
[~2019-01-16] VITALS: Ht 165.1 cm; Wt 123.5 kg
[~2019-01-16 10:14] MED LIST changes: +ACET-2119 PO; +APIX5TAB3 PO; +ASCO500C15 PO; -CIPR-230 PO; -COMIN IH; +DIGO125T5 PO; -GLUC-237 PO; -GREE150C PO; +IPRA3AMP31 IH; +LACT-237 PO; +LACTC PO; +LEVE500T PO; -LISI-644 PO; +METO-395 PO; -METO25TA6 PO; -PRED10TA PO; +PRED10TA23 PO; +VANC5VIA PO; +etomidate 2mg/ml inj. ONE
[2019-01-16 10:53] LABS: BASOPHILS # (AUTO) 0.1 X10'3 (0-0.2); BASOPHILS % (AUTO) 0.6 % (0-1); EOSINOPHILS # (AUTO) 0.1 X10'3 (0-0.9); EOSINOPHILS % (AUTO) 0.8 % (0-6); HEMATOCRIT 33.5 % (35.0-45.0); HEMOGLOBIN 10.9 g/dl (12.0-16.0); LYMPHOCYTES # (AUTO) 0.7 X10'3 (1.1-4.8); LYMPHOCYTES % (AUTO) 4.6 % (21-51); MEAN CORPUSCULAR HEMOGLOBIN 30.9 PG (27.0-31.0); MEAN CORPUSCULAR HGB CONC 32.7 g/dL (33.0-36.5); MEAN CORPUSCULAR VOLUME 94.7 FL (78-98); MEAN PLATELET VOLUME 7.1 FL (7.4-10.4); MONOCYTES # (AUTO) 1.3 X10'3 (0-0.9); PLATELET COUNT 468 X10'3 (140-440); RED BLOOD COUNT 3.54 X10'6 (4.20-5.60); RED CELL DISTRIBUTION WIDTH 15.5 % (11.5-14.5); WHITE BLOOD COUNT 16.3 X10'3 (4.5-11.0)
[2019-01-16] MEDS ORDERED: furosemide 10 MG/1 ML 10ml inj IV ONE (10:55)
[2019-01-16 11:07] LABS: PARTIAL THROMBOPLASTIN TIME 29 SECONDS (22-32)
[2019-01-16 11:08] LABS: ANION GAP 11 (8-16); BLOOD UREA NITROGEN 22 MG/DL (7-18); CHLORIDE 104 MMOL/L (99-107); CREATININE 0.82 MG/DL (0.40-0.90); GLUCOSE 167 MG/DL (70-104); POTASSIUM 3.8 MMOL/L (3.5-5.1); SODIUM 141 MMOL/L (135-145); TOTAL CARBON DIOXIDE 26.4 MMOL/L (24-32)
[2019-01-16 11:09] LABS: ALANINE AMINOTRANSFERASE 10 U/L (12-78); ALBUMIN 1.8 G/DL (3.4-5.0); ALBUMIN/GLOBULIN RATIO 0.4 (1.1-1.5); ALKALINE PHOSPHATASE 92 IU/L (46-116); ASPARTATE AMINO TRANSFERASE 20 U/L (10-37); BILIRUBIN,TOTAL 0.2 MG/DL (0.1-1.0); BUN/CREATININE RATIO 26.8 (6.6-38.0); CALCIUM 8.1 MG/DL (8.5-10.1); TOTAL PROTEIN 6.2 G/DL (6.4-8.2); eGFR 70 ML/MIN
[2019-01-16] MEDS ORDERED: CefTRIAXone 2gm/D5W 50ml 50 ML IV ONE (11:15)
[2019-01-16 11:16] LABS: TROPONIN I 0.43 NG/ML (0.0-0.05)
[2019-01-16] MEDS ORDERED: heparin 10,000 units/1 ML INJ IV ONE ×3 (11:40→14:15)
[2019-01-16 11:56] LABS: ABG BASE EXCESS -1.9 mmol/L (-2.0-3.0); ABG HCO3 22.9 mmol/L (22.0-26.0); ABG PCO2 (T) 39.3 mmHg (35.0-45.0); ABG PH (T) 7.384 (7.350-7.450); ABG PO2 (T) 78.5 mmHg (83-108); ALLEN'S TEST Positive; FCOHb 0.4 % (0.5-1.5); FLOW 11 L/min; FMetHb 0.2 % (0.3-1.12); FO2Hb 94.4 % (94-100); TOTAL HEMOGLOBIN 12.9 G/dl (12.0-16.0)
[2019-01-16] MEDS ORDERED: iohexol 350MG/ML 100ml bottle IV ONE (11:56)
--- NOTE | 2019-01-16 12:10 | NUR ---
TO CT VIA [facility]
--- NOTE | 2019-01-16 12:24 | NUR ---
BACK FROM CT IN STABLE CONDITION
[2019-01-16] MEDS: heparin 25,000 UNIT/250ml bag 250 ML IV SCH ×2 (12:42→13:27)
--- NOTE | 2019-01-16 12:45 | NUR ---
XENA CHENG CHANGED HEPARIN TO PE PROTOCOL. CALLED THE PHARMACIST TO CHANGE PROTOCOL FROM CARDIAC TO PE. PHARMACIST NOT SURE WILL CHECK WITH OTHER PHARMACIST.
[2019-01-16] MEDS ORDERED: LORazepam 2 mg/ml vial IV ONE (12:50)
[2019-01-16] MEDS ORDERED: heparin 10,000 units/1 ML INJ IV PRN ×3 (13:00→14:15)
--- NOTE | 2019-01-16 13:00 | NUR ---
TOTAL URINE OUTPUT 500CC
[2019-01-16] MEDS ORDERED: heparin 25,000 UNIT/250ml bag 250 ML IV SCH ×3 (13:08→15:02)
--- NOTE | 2019-01-16 13:14 | NUR ---
SPOKE WITH MARISA PHARMACIST WILL PUT PE PROTOCOL ORDER IN COMPUTER
--- NOTE | 2019-01-16 13:27 | NUR ---
HEPARIN BOLUS NOW 8500, 4000 BOLUS GIVEN EARLIER DIFFERENCE OF 4500 GIVEN TO PT.
[2019-01-16] MEDS ORDERED: HYDROcodone/acetaminophen 10/325mg tab PO PRN (14:15)
[2019-01-16] MEDS ORDERED: morphine 2 MG/ML inj. syringe IV PRN ×2 (14:15)
[2019-01-16] MEDS ORDERED: acetaminophen 325mg tablet PO PRN ×3 (14:15→14:55)
[2019-01-16] MEDS ORDERED: potassium CL 10mEq/100ml bag 100 ML IV PRN ×4 (14:15→14:55)
[2019-01-16] MEDS ORDERED: ondansetron/PF 4mg/2ml inj IV PRN ×2 (14:15→14:55)
[2019-01-16] MEDS ORDERED: magnesium Cl slow-release 64mg tablet PO PRN (14:15)
[2019-01-16] MEDS ORDERED: mag hydrox/Alum hydrox/simeth 30ml oral suspension PO PRN (14:15)
[2019-01-16] MEDS ORDERED: albuterol 2.5 MG/3 ML nebule NEB PRN (14:15)
[2019-01-16] MEDS ORDERED: magnesium 2GM in 50ml NS 50 ML IV PRN (14:15)
[2019-01-16] MEDS ORDERED: magnesium 4gm in 100ml NS 100 ML IV PRN (14:15)
[2019-01-16] MEDS ORDERED: potassium Cl 20 mEq SR tablet PO PRN ×4 (14:15→14:55)
[2019-01-16] MEDS: ipratropium/albuterol 3ml nebule NEB SCH ×2 (15:00→20:38)
--- NOTE | 2019-01-16 15:06 | NUR ---
RT HERE GIVING MAURICE LANDA, 02 SATS 90%, RR44,
--- NOTE | 2019-01-16 15:09 | NUR ---
SPOKE WITH XENA OF PTS CONDITION, RR40S, HR 112, 02 SAT 89-90% 10L.
--- NOTE | 2019-01-16 15:10 | NUR ---
ARIELA CUNHA ORDERED ABGS
--- NOTE | 2019-01-16 15:13 | NUR ---
went of all pts medications on previous medication req. pt denies taking most medications listed. updated med req
--- NOTE | 2019-01-16 15:14 | NUR ---
spoke with dr. lyons regarding pt status, 02 sat 88-90s, rr 40s, pt getting tired. states, i will be down
--- NOTE | 2019-01-16 15:18 | NUR ---
DR. ROTH AT BEDSIDE, WANTS PT IN ICU NOW
[2019-01-16 15:21] LABS: ABG BASE EXCESS 0.7 mmol/L (-2.0-3.0); ABG HCO3 26.3 mmol/L (22.0-26.0); ABG OXYGEN SATURATION 90.6 % (95-98); ABG PCO2 (T) 46.2 mmHg (35.0-45.0); ABG PH (T) 7.374 (7.350-7.450); ABG PO2 (T) 57.9 mmHg (83-108); FCOHb 0.4 % (0.5-1.5); FLOW 10 L/min; FMetHb 0.1 % (0.3-1.12); FO2Hb 90.1 % (94-100); TOTAL HEMOGLOBIN 12.9 G/dl (12.0-16.0)
--- NOTE | 2019-01-16 15:57 | NUR ---
received from ER placed on monitor, fc placed with return of clear yellow urine, echo in progress, dr lyons here for paracentesis
[2019-01-16] MEDS ORDERED: albumin (human) 25% 100ml IV 100 ML IV ONE (16:28)
[2019-01-16] MEDS: methylPREDNISolone sod succ 125mg/2ml vial IV SCH (16:55)
--- NOTE | 2019-01-16 18:27 | NUR ---
Patient in room ICU 2041. I have received report from Carin ELLIOTT, and had the opportunity to ask questions and assume patient care.
--- NOTE | 2019-01-16 19:30 | NUR ---
PT is resting in bed with no s/s of distress noted at this time. VSS. PT is receiving 10L of high flow O2, tolerating well O2 sat >93%. PT did not have much of an appetite and only wanted to have the Jello off of her dinner tray. Dotson in place draining to gravity. Bed is locked and low. Call light is with in reach. Will continue to monitor.
[2019-01-16] MEDS ORDERED: docusate sod 100mg capsule PO SCH (20:00)
[2019-01-16] MEDS: docusate sod 100mg capsule PO SCH (20:00)
[2019-01-16] MEDS: sennosides/docusate sodium tablet PO SCH (20:10)
[2019-01-16] MEDS: enoxaparin 100mg/ml syringe SUBCUT SCH (20:11)
[2019-01-16] MEDS: famotidine 20mg tablet PO SCH (20:11)
[2019-01-16] MEDS: phenytoin sod ER 100mg capsule PO SCH (21:35)
[2019-01-16] MEDS: carBAMazepine Ext. Release 200 MG TAB.ER.12H PO SCH (21:41)
--- NOTE | 2019-01-16 23:00 | NUR ---
PT c/o slight headache. PRN Tylenol given. Will continue to monitor.
[2019-01-17] VITALS (24 sets, daily range): BP systolic 17–130; BP diastolic 59–80
[2019-01-17] MEDS: HYDROcodone/acetaminophen 5mg/325mg tablet PO PRN (00:47)
--- NOTE | 2019-01-17 02:30 | NUR ---
PT resting, sleeping off and on. VSS. PRN Eden given around 0100 and has been effective. Bed is locked and low. Call light is within reach. Will continue to monitor.
[2019-01-17] MEDS ORDERED: albuterol 2.5 MG/3 ML nebule NEB SCH (03:00)
[2019-01-17 04:50] LABS: BASOPHILS # (AUTO) 0.1 X10'3 (0-0.2); BASOPHILS % (AUTO) 0.7 % (0-1); EOSINOPHILS % (AUTO) 0.2 % (0-6); HEMATOCRIT 34.7 % (35.0-45.0); HEMOGLOBIN 11.3 g/dl (12.0-16.0); LYMPHOCYTES # (AUTO) 0.3 X10'3 (1.1-4.8); LYMPHOCYTES % (AUTO) 1.7 % (21-51); MEAN CORPUSCULAR HEMOGLOBIN 30.7 PG (27.0-31.0); MEAN CORPUSCULAR HGB CONC 32.4 g/dL (33.0-36.5); MEAN CORPUSCULAR VOLUME 94.5 FL (78-98); MEAN PLATELET VOLUME 7.6 FL (7.4-10.4); MONOCYTES # (AUTO) 0.5 X10'3 (0-0.9); MONOCYTES % (AUTO) 2.9 % (2-12); NEUTROPHILS # (AUTO) 15.1 X10'3 (1.8-7.7); NEUTROPHILS % (AUTO) 94.5 % (42-75); PLATELET COUNT 452 X10'3 (140-440); RED BLOOD COUNT 3.67 X10'6 (4.20-5.60); RED CELL DISTRIBUTION WIDTH 15.2 % (11.5-14.5); WHITE BLOOD COUNT 15.9 X10'3 (4.5-11.0)
[2019-01-17 05:03] LABS: ALANINE AMINOTRANSFERASE 8 U/L (12-78); ALBUMIN 1.7 G/DL (3.4-5.0); ALBUMIN/GLOBULIN RATIO 0.4 (1.1-1.5); ALKALINE PHOSPHATASE 82 IU/L (46-116); ANION GAP 9 (8-16); ASPARTATE AMINO TRANSFERASE 21 U/L (10-37); BILIRUBIN,TOTAL 0.2 MG/DL (0.1-1.0); BLOOD UREA NITROGEN 24 MG/DL (7-18); BUN/CREATININE RATIO 20.7 (6.6-38.0); CALCIUM 8.1 MG/DL (8.5-10.1); CHLORIDE 101 MMOL/L (99-107); CREATININE 1.16 MG/DL (0.40-0.90); GLUCOSE 186 MG/DL (70-104); MAGNESIUM 1.8 MG/DL (1.5-2.4); PHENYTOIN (DILANTIN) 3.8 UG/ML (10.0-20.0); PHOSPHORUS 4.9 MG/DL (2.3-4.5); POTASSIUM 4.2 MMOL/L (3.5-5.1); SODIUM 137 MMOL/L (135-145); TOTAL CARBON DIOXIDE 26.8 MMOL/L (24-32); TOTAL PROTEIN 6.3 G/DL (6.4-8.2); eGFR 47 ML/MIN
--- NOTE | 2019-01-17 06:34 | NUR ---
Problems reprioritized. Patient report given, questions answered & plan of care reviewed with Carrie ELLIOTT.
--- NOTE | 2019-01-17 06:44 | NUR ---
Patient in room ICU 2041. I have received report from LEXI Mcneal and had the opportunity to ask questions and assume patient care.
[2019-01-17] MEDS: famotidine 20mg tablet PO SCH ×2 (07:36→20:46)
[2019-01-17] MEDS: phenytoin sod ER 100mg capsule PO SCH ×2 (07:37→20:46)
[2019-01-17] MEDS: carBAMazepine Ext. Release 200 MG TAB.ER.12H PO SCH ×2 (07:37→20:46)
[2019-01-17] MEDS: docusate sod 100mg capsule PO SCH ×2 (07:38→20:46)
[2019-01-17] MEDS: methylPREDNISolone sod succ 125mg/2ml vial IV SCH ×3 (07:39→16:13)
[2019-01-17] MEDS: enoxaparin 100mg/ml syringe SUBCUT SCH ×2 (07:41→20:46)
[2019-01-17] MEDS: K and/or MAG REPLACEMENT MC SCH (08:00)
[2019-01-17] MEDS: budesonide 0.5mg/2ml UD nebule IH SCH ×3 (08:01→21:08)
[2019-01-17] MEDS: ipratropium/albuterol 3ml nebule NEB SCH ×3 (08:01→20:04)
[2019-01-17] MEDS ORDERED: albumin (human) 25% 100 ML IV solution IV ONE (11:15)
--- NOTE | 2019-01-17 13:13 | NUR ---
PRESSURE ULCER EDUCATION: DEFINITION: A pressure ulcer is an area of skin that breaks down when you stay in one position too long. The constant pressure against the skin reduces the blood flow to that area and the affected tissue dies. CAUSES: "Being bedridden or in a wheelchair "Fragile skin "Having a chronic condition, such as diabetes or vascular disease "Inability to move certain parts of your body without assistance "Older age "Incontinence of urine or stool SYMPTOMS: "A reddened area that DOES NOT turn white when pressed on - this can be the beginning of a pressure ulcer "A blister, deep sore or a crater - these can be advanced pressure ulcers FIRST AID: "Relieve the pressure on this area "Keep the area clean and dry "Call your primary doctor if you see any of the above symptoms "DO NOT massage the area "DO NOT use a donut shaped or ring shaped pillow- these actually interfere with the blood flow and cause complications PREVENTION: "Check for pressure ulcers everyday "Change position at least every two hours to relieve pressure "Use items that help relieve pressure- pillows, sheepskin, foam padding, and powders. "Keep skin clean and dry "Eat healthy well balanced meals "Exercise daily IF YOU SEE ANY OF THESE SYMPTOMS WHILE IN THE HOSPITAL - TELL YOUR NURSE IMMEDIATELY. IF YOU SEE ANY OF THESE SYMPTOMS WHILE AT HOME OR HAVE ANY QUESTIONS OR CONCERNS ABOUT PRESSURE ULCERS - CALL YOUR PRIMARY DOCTOR IMMEDIATELY. Addendum: 01/17/19 at 1314 by Gopi Valdez RN Amended: Links added.
[2019-01-17 13:20] LABS: CLARITY,URINE CLOUDY (Clear); COLOR,URINE YELLOW (Yellow); GLUCOSE, URINE NEGATIVE (Neg); KETONES,URINE NEGATIVE (Neg); LEUKOCYTE ESTERASE ,URINE TRACE (Neg); NITRITES, URINE NEGATIVE (Neg); OCCULT BLOOD,URINE MODERATE (Neg); PH,URINE 5.5 (4.8-8.0); PROTEIN,URINE TRACE mg/dl (Neg); UROBILINOGEN,URINE 0.2 E.U/dL (0.2-1.0)
[2019-01-17 13:27] LABS: UA COLLECTION TYPE NON-SPECIFIED
[2019-01-17 13:31] LABS: HYALINE CASTS >30 /LPF (NEGATIVE); SQUAMOUS EPITHELIAL CELL,UR MODERATE /LPF (FEW)
[2019-01-17 13:32] LABS: BACTERIA,URINE 3+ /HPF (Neg); MUCUS STRANDS MODERATE /LPF (Neg); WBC,URINE 50-100 /HPF (0-4)
[2019-01-17 13:34] LABS: RBC,URINE 50-100 /HPF (0-2)
[2019-01-17 14:17] LABS: UA EOSINOPHILS NO EOS /HPF
--- NOTE | 2019-01-17 15:51 | NUR ---
Low Deejay of 12; she has reddened gluteal sulcus; no open wounds. She has poor appetite, eating 0-25% of meals today. Patient drinks ensure at home and is requesting ensure enlive with MD andrzej almodovar with sending. Addendum: 01/17/19 at [address] Amended: Links added.
--- NOTE | 2019-01-17 18:40 | NUR ---
Patient in room ICU 2041. I have received report from Carrie ELLIOTT, and had the opportunity to ask questions and assume patient care.
--- NOTE | 2019-01-17 19:45 | NUR ---
PT is resting in bed with no s/s of distress noted at this time. VSS. PT is receiving 8L of high flow O2, tolerating well O2 sat >93%. PT refused dinner tray, requested a sandwich tray. PT consumed half of the turkey sandwich. Dotson in place draining to gravity. Bed is locked and low. Call light is with in reach. Will continue to monitor.
[2019-01-17] MEDS: sennosides/docusate sodium tablet PO SCH (20:46)
[2019-01-17] MEDS: nystatin 15 GM powder TP SCH (20:47)
--- NOTE | 2019-01-17 23:00 | NUR ---
PT resting in bed with no s/s of distress noted at this time. VSS. Bed is locked and low. Call light is within reach. Will continue to monitor.
[2019-01-18] VITALS (23 sets, daily range): BP systolic 100–154; BP diastolic 63–118
[2019-01-18] MEDS: methylPREDNISolone sod succ 125mg/2ml vial IV SCH ×3 (00:15→17:00)
[2019-01-18] MEDS: HYDROcodone/acetaminophen 5mg/325mg tablet PO PRN ×2 (00:16→23:18)
--- NOTE | 2019-01-18 03:00 | NUR ---
PT sleeping with no s/s of distress noted at this time. VSS. Bed is locked and low. Call light is within reach. Will continue to monitor.
[2019-01-18 04:45] LABS: BASOPHILS # (AUTO) 0.1 X10'3 (0-0.2); BASOPHILS % (AUTO) 0.5 % (0-1); EOSINOPHILS % (AUTO) 0.3 % (0-6); HEMATOCRIT 32.3 % (35.0-45.0); HEMOGLOBIN 10.5 g/dl (12.0-16.0); LYMPHOCYTES # (AUTO) 0.5 X10'3 (1.1-4.8); LYMPHOCYTES % (AUTO) 3.3 % (21-51); MEAN CORPUSCULAR HEMOGLOBIN 30.7 PG (27.0-31.0); MEAN CORPUSCULAR HGB CONC 32.6 g/dL (33.0-36.5); MEAN CORPUSCULAR VOLUME 94.3 FL (78-98); MEAN PLATELET VOLUME 7.6 FL (7.4-10.4); MONOCYTES # (AUTO) 0.6 X10'3 (0-0.9); MONOCYTES % (AUTO) 4.1 % (2-12); NEUTROPHILS # (AUTO) 13.8 X10'3 (1.8-7.7); NEUTROPHILS % (AUTO) 91.8 % (42-75); PLATELET COUNT 421 X10'3 (140-440); RED BLOOD COUNT 3.42 X10'6 (4.20-5.60); RED CELL DISTRIBUTION WIDTH 15.3 % (11.5-14.5)
[2019-01-18 05:00] LABS: ALANINE AMINOTRANSFERASE 11 U/L (12-78); ALBUMIN 2.4 G/DL (3.4-5.0); ALBUMIN/GLOBULIN RATIO 0.6 (1.1-1.5); ALKALINE PHOSPHATASE 71 IU/L (46-116); ANION GAP 8 (8-16); ASPARTATE AMINO TRANSFERASE 18 U/L (10-37); BILIRUBIN,TOTAL 0.2 MG/DL (0.1-1.0); BLOOD UREA NITROGEN 34 MG/DL (7-18); CALCIUM 8.3 MG/DL (8.5-10.1); CHLORIDE 102 MMOL/L (99-107); CREATININE 1.03 MG/DL (0.40-0.90); GLUCOSE 164 MG/DL (70-104); PHOSPHORUS 4.6 MG/DL (2.3-4.5); POTASSIUM 4.3 MMOL/L (3.5-5.1); SODIUM 138 MMOL/L (135-145); TOTAL CARBON DIOXIDE 28.3 MMOL/L (24-32); TOTAL PROTEIN 6.4 G/DL (6.4-8.2); eGFR 54 ML/MIN
--- NOTE | 2019-01-18 07:05 | NUR ---
Problems reprioritized. Patient report given, questions answered & plan of care reviewed with Windy ELLIOTT.
[2019-01-18] MEDS: morphine 2 MG/ML inj. syringe IV PRN (07:17)
[2019-01-18 07:40] LABS: ABG BASE EXCESS 0.6 mmol/L (-2.0-3.0); ABG HCO3 25.4 mmol/L (22.0-26.0); ABG PCO2 (T) 41.1 mmHg (35.0-45.0); ABG PH (T) 7.408 (7.350-7.450); ABG PO2 (T) 52.4 mmHg (83-108); ALLEN'S TEST Positive; FCOHb 0.3 % (0.5-1.5); FLOW 10 L/min; FMetHb 0.1 % (0.3-1.12); FO2Hb 85.7 % (94-100); RESPIRATORY RATE (OBSERVED) 34 b/min
[2019-01-18] MEDS: ipratropium/albuterol 3ml nebule NEB SCH ×3 (07:46→20:10)
[2019-01-18] MEDS: budesonide 0.5mg/2ml UD nebule IH SCH ×2 (07:46→20:11)
[2019-01-18] MEDS: K and/or MAG REPLACEMENT MC SCH (08:00)
[2019-01-18] MEDS: famotidine 20mg tablet PO SCH ×2 (09:04→20:39)
[2019-01-18] MEDS: phenytoin sod ER 100mg capsule PO SCH ×2 (09:04→20:39)
[2019-01-18] MEDS: nystatin 15 GM powder TP SCH ×3 (09:05→20:39)
[2019-01-18] MEDS: docusate sod 100mg capsule PO SCH ×2 (09:15→20:38)
[2019-01-18] MEDS: carBAMazepine Ext. Release 200 MG TAB.ER.12H PO SCH ×2 (09:36→20:39)
[2019-01-18] MEDS: enoxaparin 100mg/ml syringe SUBCUT SCH ×2 (09:37→20:39)
[2019-01-18 10:11] LABS: ABG BASE EXCESS 0.3 mmol/L (-2.0-3.0); ABG HCO3 24.5 mmol/L (22.0-26.0); ABG OXYGEN SATURATION 85.5 % (95-98); ABG PCO2 (T) 37.7 mmHg (35.0-45.0); ABG PO2 (T) 51.5 mmHg (83-108); ALLEN'S TEST Positive; FCOHb 0.3 % (0.5-1.5); FLOW 45 L/min; FMetHb 0.2 % (0.3-1.12); FO2Hb 85.1 % (94-100); RESPIRATORY RATE (OBSERVED) 32 b/min; TOTAL HEMOGLOBIN 12.2 G/dl (12.0-16.0)
[2019-01-18] MEDS: lactose-reduced food (Ensure High Protein) 237ml bottle PO SCH ×2 (13:00→18:00)
--- NOTE | 2019-01-18 15:56 | NUR ---
Met with patient at bedside to obtain preferences. She reported allergy to carrots, d/w this with dietary. Patient dislikes pineapples, peaches, cinnamon, green beans, beans, fresh garlic, fresh peppers, and vinegar; discussed all with dietary. Obtained food preferences. Patient started to receive Ensure Enlive today at lunch, prefers chocolate and strawberry, pt reports she drinks ensure at home daily. Addendum: 01/18/19 at [address] Amended: Links added.
--- NOTE | 2019-01-18 16:30 | NUR ---
Dr. Ramsey notified regarding pt.'s worsening paO2, fio2 was turned up to from 45% to 55%. Pt. o2 sat goal achieved. No repeat ABG per Braulio. Pt. complaining of crushing pain in chest like "elephant sitting on chest". Troponins pending, EKG taken and shown to Dr. Ramsey beginning of shift. No intervention ordered. Pt. has poor urine output; provider Braulio aware. Per [place], no chest tubes needed per lack of fluid in pleural spaces. B[place]more reviewed analysis with Dr. Ramsey.
--- NOTE | 2019-01-18 19:15 | NUR ---
PT is resting in bed with no s/s of distress noted at this time. VSS. PT is receiving high flow O2 with FiO2 of 60%, tolerating well O2 sat >90%. PT refused dinner tray but did drink 100% of the Ensure. Dotson in place draining to gravity. Bed is locked and low. Call light is with in reach. Will continue to monitor.
[2019-01-18] MEDS: sennosides/docusate sodium tablet PO SCH (20:38)
[2019-01-19] VITALS (24 sets, daily range): BP systolic 89–132; BP diastolic 67–95
[2019-01-19] MEDS: methylPREDNISolone sod succ 125mg/2ml vial IV SCH ×3 (00:31→16:04)
[2019-01-19] MEDS ORDERED: diphenhydrAMINE 25mg capsule PO ONE ×2 (02:00→20:15)
[2019-01-19] MEDS ORDERED: LORazepam 0.5 MG tablet PO ONE (02:00)
[2019-01-19] MEDS: ipratropium/albuterol 3ml nebule NEB SCH ×3 (02:09→20:04)
--- NOTE | 2019-01-19 03:00 | NUR ---
PT resting in bed, sleeping off and on with no s/s of distress noted at this time. VSS. Bed is locked and low. Call light is within reach. Will continue to monitor.
[2019-01-19 05:42] LABS: ALANINE AMINOTRANSFERASE 19 U/L (12-78); ALBUMIN 2.4 G/DL (3.4-5.0); ALBUMIN/GLOBULIN RATIO 0.5 (1.1-1.5); ALKALINE PHOSPHATASE 79 IU/L (46-116); ANION GAP 8 (8-16); ASPARTATE AMINO TRANSFERASE 33 U/L (10-37); BILIRUBIN,TOTAL 0.1 MG/DL (0.1-1.0); BLOOD UREA NITROGEN 52 MG/DL (7-18); BUN/CREATININE RATIO 43.7 (6.6-38.0); CALCIUM 8.7 MG/DL (8.5-10.1); CHLORIDE 100 MMOL/L (99-107); CREATININE 1.19 MG/DL (0.40-0.90); GLUCOSE 215 MG/DL (70-104); POTASSIUM 4.4 MMOL/L (3.5-5.1); SODIUM 136 MMOL/L (135-145); TOTAL CARBON DIOXIDE 27.6 MMOL/L (24-32); TOTAL PROTEIN 6.8 G/DL (6.4-8.2); eGFR 46 ML/MIN
[2019-01-19 05:43] LABS: BASOPHILS # (AUTO) 0.1 X10'3 (0-0.2); BASOPHILS % (AUTO) 0.5 % (0-1); EOSINOPHILS % (AUTO) 0 % (0-6); HEMATOCRIT 33.2 % (35.0-45.0); HEMOGLOBIN 10.9 g/dl (12.0-16.0); LYMPHOCYTES # (AUTO) 0.9 X10'3 (1.1-4.8); LYMPHOCYTES % (AUTO) 5.8 % (21-51); MEAN CORPUSCULAR VOLUME 94.2 FL (78-98); MEAN PLATELET VOLUME 7.9 FL (7.4-10.4); MONOCYTES # (AUTO) 0.8 X10'3 (0-0.9); MONOCYTES % (AUTO) 4.9 % (2-12); NEUTROPHILS # (AUTO) 13.6 X10'3 (1.8-7.7); NEUTROPHILS % (AUTO) 88.8 % (42-75); PLATELET COUNT 496 X10'3 (140-440); RED BLOOD COUNT 3.52 X10'6 (4.20-5.60); RED CELL DISTRIBUTION WIDTH 15.9 % (11.5-14.5); WHITE BLOOD COUNT 15.3 X10'3 (4.5-11.0)
[2019-01-19 05:47] LABS: MAGNESIUM 2.2 MG/DL (1.5-2.4); PHOSPHORUS 3.7 MG/DL (2.3-4.5); TROPONIN I 0.21 NG/ML (0.0-0.05)
--- NOTE | 2019-01-19 06:35 | NUR ---
Problems reprioritized. Patient report given, questions answered & plan of care reviewed with Erinn ELLIOTT.
[2019-01-19] MEDS: famotidine 20mg tablet PO SCH ×2 (07:58→20:06)
[2019-01-19] MEDS: carBAMazepine Ext. Release 200 MG TAB.ER.12H PO SCH ×2 (07:58→20:05)
[2019-01-19] MEDS: phenytoin sod ER 100mg capsule PO SCH ×2 (07:59→20:05)
[2019-01-19] MEDS: docusate sod 100mg capsule PO SCH ×2 (07:59→20:04)
[2019-01-19] MEDS: enoxaparin 100mg/ml syringe SUBCUT SCH ×2 (08:00→20:04)
[2019-01-19] MEDS: nystatin 15 GM powder TP SCH ×3 (08:00→20:06)
[2019-01-19] MEDS: K and/or MAG REPLACEMENT MC SCH (08:00)
[2019-01-19] MEDS: lactose-reduced food (Ensure High Protein) 237ml bottle PO SCH ×4 (08:02→17:45)
[2019-01-19] MEDS: budesonide 0.5mg/2ml UD nebule IH SCH ×2 (09:34→20:05)
--- NOTE | 2019-01-19 17:32 | NUR ---
increased ectopy and HR fluctuating to 140s-150s noted around 1645. ~200ml of UOP per hour. MD aware. BMP, Mag, and phos sent. SBP 170s-180s throughout shift. MD aware - diltiazem 60 mg q6h ordered.
--- NOTE | 2019-01-19 18:27 | NUR ---
Problems reprioritized. Patient report given, questions answered & plan of care reviewed with LEXI Cline.
[2019-01-19] MEDS: sennosides/docusate sodium tablet PO SCH (20:06)
[2019-01-19] MEDS: morphine 4 MG/ML inj SYRINge IV PRN (22:01)
[2019-01-20] VITALS (24 sets, daily range): BP systolic 89–133; BP diastolic 52–97
[2019-01-20] MEDS: methylPREDNISolone sod succ 125mg/2ml vial IV SCH ×4 (00:46→23:30)
[2019-01-20 03:01] LABS: BASOPHILS # (AUTO) 0.1 X10'3 (0-0.2); BASOPHILS % (AUTO) 0.8 % (0-1); EOSINOPHILS # (AUTO) 0.1 X10'3 (0-0.9); EOSINOPHILS % (AUTO) 0.3 % (0-6); HEMATOCRIT 33.1 % (35.0-45.0); HEMOGLOBIN 10.9 g/dl (12.0-16.0); LYMPHOCYTES # (AUTO) 1.4 X10'3 (1.1-4.8); LYMPHOCYTES % (AUTO) 8.6 % (21-51); MEAN CORPUSCULAR HEMOGLOBIN 30.4 PG (27.0-31.0); MEAN CORPUSCULAR HGB CONC 32.8 g/dL (33.0-36.5); MEAN CORPUSCULAR VOLUME 92.9 FL (78-98); MEAN PLATELET VOLUME 7.8 FL (7.4-10.4); MONOCYTES # (AUTO) 1.8 X10'3 (0-0.9); MONOCYTES % (AUTO) 10.9 % (2-12); NEUTROPHILS # (AUTO) 13.1 X10'3 (1.8-7.7); NEUTROPHILS % (AUTO) 79.4 % (42-75); PLATELET COUNT 488 X10'3 (140-440); RED BLOOD COUNT 3.57 X10'6 (4.20-5.60); RED CELL DISTRIBUTION WIDTH 15.4 % (11.5-14.5); WHITE BLOOD COUNT 16.5 X10'3 (4.5-11.0)
[2019-01-20 03:13] LABS: ALANINE AMINOTRANSFERASE 33 U/L (12-78); ALBUMIN 2.2 G/DL (3.4-5.0); ALBUMIN/GLOBULIN RATIO 0.5 (1.1-1.5); ALKALINE PHOSPHATASE 76 IU/L (46-116); ANION GAP 7 (8-16); ASPARTATE AMINO TRANSFERASE 47 U/L (10-37); BILIRUBIN,TOTAL 0.2 MG/DL (0.1-1.0); BLOOD UREA NITROGEN 52 MG/DL (7-18); BUN/CREATININE RATIO 50.5 (6.6-38.0); CALCIUM 8.5 MG/DL (8.5-10.1); CHLORIDE 101 MMOL/L (99-107); CREATININE 1.03 MG/DL (0.40-0.90); GLUCOSE 138 MG/DL (70-104); MAGNESIUM 2.3 MG/DL (1.5-2.4); PHOSPHORUS 3.6 MG/DL (2.3-4.5); POTASSIUM 4.1 MMOL/L (3.5-5.1); SODIUM 139 MMOL/L (135-145); TOTAL CARBON DIOXIDE 30.8 MMOL/L (24-32); TOTAL PROTEIN 6.5 G/DL (6.4-8.2); eGFR 54 ML/MIN
[2019-01-20] MEDS: morphine 4 MG/ML inj SYRINge IV PRN ×2 (03:32→22:04)
[2019-01-20 07:13] LABS: ANISOCYTOSIS 1+; PLATELET ESTIMATE INCREASED; POLYCHROMASIA FEW; TOTAL CELLS COUNTED 100
[2019-01-20] MEDS: budesonide 0.5mg/2ml UD nebule IH SCH ×2 (07:59→20:07)
[2019-01-20] MEDS: ipratropium/albuterol 3ml nebule NEB SCH ×3 (07:59→20:07)
[2019-01-20] MEDS: phenytoin sod ER 100mg capsule PO SCH ×2 (08:00→19:39)
[2019-01-20] MEDS: famotidine 20mg tablet PO SCH ×2 (08:00→19:38)
[2019-01-20] MEDS: K and/or MAG REPLACEMENT MC SCH (08:00)
[2019-01-20] MEDS: lactose-reduced food (Ensure High Protein) 237ml bottle PO SCH ×3 (08:00→18:00)
[2019-01-20] MEDS: docusate sod 100mg capsule PO SCH ×2 (08:00→19:41)
[2019-01-20] MEDS: nystatin 15 GM powder TP SCH ×3 (08:00→19:40)
[2019-01-20] MEDS: enoxaparin 100mg/ml syringe SUBCUT SCH ×2 (08:00→19:39)
[2019-01-20] MEDS: carBAMazepine Ext. Release 200 MG TAB.ER.12H PO SCH ×2 (09:30→19:38)
[2019-01-20] MEDS: morphine 2 MG/ML inj. syringe IV PRN (13:33)
[2019-01-20] MEDS: sennosides/docusate sodium tablet PO SCH (19:40)
[2019-01-20] MEDS ORDERED: diphenhydrAMINE 25mg capsule PO ONE (21:50)
[2019-01-21] VITALS (24 sets, daily range): BP systolic 108–136; BP diastolic 73–100
[2019-01-21 03:06] LABS: BASOPHILS # (AUTO) 0.1 X10'3 (0-0.2); BASOPHILS % (AUTO) 0.7 % (0-1); EOSINOPHILS % (AUTO) 0.2 % (0-6); HEMATOCRIT 33.5 % (35.0-45.0); HEMOGLOBIN 10.8 g/dl (12.0-16.0); LYMPHOCYTES # (AUTO) 0.9 X10'3 (1.1-4.8); LYMPHOCYTES % (AUTO) 5.4 % (21-51); MEAN CORPUSCULAR HEMOGLOBIN 30.4 PG (27.0-31.0); MEAN CORPUSCULAR HGB CONC 32.2 g/dL (33.0-36.5); MEAN CORPUSCULAR VOLUME 94.4 FL (78-98); MEAN PLATELET VOLUME 7.8 FL (7.4-10.4); MONOCYTES # (AUTO) 1.1 X10'3 (0-0.9); MONOCYTES % (AUTO) 6.5 % (2-12); NEUTROPHILS # (AUTO) 14.7 X10'3 (1.8-7.7); NEUTROPHILS % (AUTO) 87.2 % (42-75); PLATELET COUNT 455 X10'3 (140-440); RED BLOOD COUNT 3.55 X10'6 (4.20-5.60); RED CELL DISTRIBUTION WIDTH 15.7 % (11.5-14.5); WHITE BLOOD COUNT 16.9 X10'3 (4.5-11.0)
[2019-01-21 03:10] LABS: ALANINE AMINOTRANSFERASE 37 U/L (12-78); ALBUMIN 2.2 G/DL (3.4-5.0); ALBUMIN/GLOBULIN RATIO 0.5 (1.1-1.5); ALKALINE PHOSPHATASE 84 IU/L (46-116); ANION GAP 6 (8-16); ASPARTATE AMINO TRANSFERASE 43 U/L (10-37); BILIRUBIN,TOTAL 0.2 MG/DL (0.1-1.0); BLOOD UREA NITROGEN 55 MG/DL (7-18); CALCIUM 8.3 MG/DL (8.5-10.1); CHLORIDE 100 MMOL/L (99-107); GLUCOSE 189 MG/DL (70-104); MAGNESIUM 2.4 MG/DL (1.5-2.4); POTASSIUM 4.7 MMOL/L (3.5-5.1); SODIUM 136 MMOL/L (135-145); TOTAL PROTEIN 6.5 G/DL (6.4-8.2); eGFR 56 ML/MIN
[2019-01-21] MEDS: morphine 2 MG/ML inj. syringe IV PRN (03:26)
--- NOTE | 2019-01-21 03:38 | NUR ---
Patient in room ICU 2041. I have received report from aMrlyn ELLIOTT and had the opportunity to ask questions and assume patient care.
--- NOTE | 2019-01-21 03:38 | NUR ---
Problems reprioritized. Patient report given, questions answered & plan of care reviewed with Franchesca ELLIOTT.
--- NOTE | 2019-01-21 06:14 | NUR ---
Patient in room ICU 2041. I have received report from Franchesca and had the opportunity to ask questions and assume patient care.
--- NOTE | 2019-01-21 06:33 | NUR ---
Problems reprioritized. Patient report given, questions answered & plan of care reviewed with Berkley ELLIOTT.
[2019-01-21] MEDS: budesonide 0.5mg/2ml UD nebule IH SCH ×2 (07:24→20:16)
[2019-01-21] MEDS: ipratropium/albuterol 3ml nebule NEB SCH ×3 (07:24→20:16)
[2019-01-21] MEDS: nystatin 15 GM powder TP SCH ×3 (07:31→21:41)
[2019-01-21] MEDS: methylPREDNISolone sod succ 125mg/2ml vial IV SCH ×2 (07:31→16:34)
[2019-01-21] MEDS: phenytoin sod ER 100mg capsule PO SCH ×2 (07:32→19:57)
[2019-01-21] MEDS: famotidine 20mg tablet PO SCH ×2 (07:32→19:57)
[2019-01-21] MEDS: carBAMazepine Ext. Release 200 MG TAB.ER.12H PO SCH ×2 (07:32→19:58)
[2019-01-21] MEDS: enoxaparin 100mg/ml syringe SUBCUT SCH ×2 (07:33→19:57)
[2019-01-21] MEDS: docusate sod 100mg capsule PO SCH ×2 (07:33→19:33)
[2019-01-21] MEDS: K and/or MAG REPLACEMENT MC SCH (08:27)
[2019-01-21] MEDS: lactose-reduced food (Ensure High Protein) 237ml bottle PO SCH ×3 (08:27→18:23)
--- NOTE | 2019-01-21 16:08 | NUR ---
Initial: Pt admit w/ pulmonary embolism and large ascites -5.5L paracentesis. DX metastatic ovarian CA. PO 0-25% avg 5 days w/ 50% ONS. LBM 01/21. Pt seen by VICTORINA and reports appetite is improving and eating until full; receiving cottage cheese as well for additional protein. Pt reports saving ONS for between lunch and dinner and for late night snack. Food preferences taken and d/w dietary for dinner tonight. Will continue to monitor. Rec: 1. continue regular diet 2. chocolate ensure high protein TIDWM 3. routine bowel care 4. wt per rx Addendum: 01/21/19 at [address] Amended: Links added.
--- NOTE | 2019-01-21 18:25 | NUR ---
Problems reprioritized. Patient report given, questions answered & plan of care reviewed with cordell.
--- NOTE | 2019-01-21 18:27 | NUR ---
Problems reprioritized. Patient report given, questions answered & plan of care reviewed with Franchesca.
--- NOTE | 2019-01-21 18:30 | NUR ---
Patient in room ICU 2041. I have received report from LEXI Gooden and had the opportunity to ask questions and assume patient care.
[2019-01-21] MEDS: sennosides/docusate sodium tablet PO SCH (19:34)
[2019-01-21] MEDS: diphenhydrAMINE 25mg capsule PO PRN (21:54)
[2019-01-22] VITALS (24 sets, daily range): BP systolic 102–139; BP diastolic 62–103
[2019-01-22] MEDS: methylPREDNISolone sod succ 125mg/2ml vial IV SCH ×3 (00:29→16:51)
[2019-01-22] MEDS: morphine 2 MG/ML inj. syringe IV PRN ×2 (01:54→22:31)
[2019-01-22 05:19] LABS: BASOPHILS # (AUTO) 0.1 X10'3 (0-0.2); BASOPHILS % (AUTO) 0.7 % (0-1); EOSINOPHILS % (AUTO) 0.2 % (0-6); HEMATOCRIT 34.8 % (35.0-45.0); HEMOGLOBIN 11.6 g/dl (12.0-16.0); LYMPHOCYTES # (AUTO) 0.8 X10'3 (1.1-4.8); LYMPHOCYTES % (AUTO) 4.8 % (21-51); MEAN CORPUSCULAR HEMOGLOBIN 31.2 PG (27.0-31.0); MEAN CORPUSCULAR HGB CONC 33.2 g/dL (33.0-36.5); MEAN CORPUSCULAR VOLUME 93.9 FL (78-98); MEAN PLATELET VOLUME 7.9 FL (7.4-10.4); MONOCYTES # (AUTO) 0.8 X10'3 (0-0.9); MONOCYTES % (AUTO) 4.6 % (2-12); NEUTROPHILS # (AUTO) 15.4 X10'3 (1.8-7.7); NEUTROPHILS % (AUTO) 89.7 % (42-75); PLATELET COUNT 452 X10'3 (140-440); WHITE BLOOD COUNT 17.2 X10'3 (4.5-11.0)
[2019-01-22 05:46] LABS: ALANINE AMINOTRANSFERASE 34 U/L (12-78); ALBUMIN 2.3 G/DL (3.4-5.0); ALBUMIN/GLOBULIN RATIO 0.5 (1.1-1.5); ALKALINE PHOSPHATASE 84 IU/L (46-116); ANION GAP 8 (8-16); ASPARTATE AMINO TRANSFERASE 28 U/L (10-37); BILIRUBIN,TOTAL 0.2 MG/DL (0.1-1.0); BLOOD UREA NITROGEN 48 MG/DL (7-18); BUN/CREATININE RATIO 55.8 (6.6-38.0); CALCIUM 8.5 MG/DL (8.5-10.1); CHLORIDE 100 MMOL/L (99-107); CREATININE 0.86 MG/DL (0.40-0.90); GLUCOSE 203 MG/DL (70-104); MAGNESIUM 2.2 MG/DL (1.5-2.4); PHOSPHORUS 3.4 MG/DL (2.3-4.5); POTASSIUM 4.8 MMOL/L (3.5-5.1); SODIUM 138 MMOL/L (135-145); TOTAL CARBON DIOXIDE 29.6 MMOL/L (24-32); TOTAL PROTEIN 6.7 G/DL (6.4-8.2); eGFR 66 ML/MIN
--- NOTE | 2019-01-22 06:10 | NUR ---
Problems reprioritized. Patient report given, questions answered & plan of care reviewed with LEXI Pinto.
--- NOTE | 2019-01-22 06:13 | NUR ---
Patient in room ICU 2041. I have received report from Laura ELLIOTT and had the opportunity to ask questions and assume patient care. Patient is sleeping in bed and showing no signs of distress.
[2019-01-22] MEDS: carBAMazepine Ext. Release 200 MG TAB.ER.12H PO SCH ×2 (07:15→19:58)
[2019-01-22] MEDS: enoxaparin 100mg/ml syringe SUBCUT SCH (07:15)
[2019-01-22] MEDS: phenytoin sod ER 100mg capsule PO SCH ×2 (07:16→19:57)
[2019-01-22] MEDS: nystatin 15 GM powder TP SCH ×3 (07:16→19:58)
[2019-01-22] MEDS: famotidine 20mg tablet PO SCH ×2 (07:16→19:58)
[2019-01-22] MEDS: docusate sod 100mg capsule PO SCH ×2 (07:17→19:58)
[2019-01-22] MEDS: K and/or MAG REPLACEMENT MC SCH (07:27)
[2019-01-22] MEDS: budesonide 0.5mg/2ml UD nebule IH SCH ×2 (07:41→20:08)
[2019-01-22] MEDS: ipratropium/albuterol 3ml nebule NEB SCH ×3 (07:41→20:08)
[2019-01-22] MEDS: lactose-reduced food (Ensure High Protein) 237ml bottle PO SCH ×3 (08:07→18:06)
[2019-01-22] MEDS: apixaban 5mg tablet PO SCH ×2 (10:18→19:57)
[2019-01-22] MEDS: HYDROcodone/acetaminophen 5mg/325mg tablet PO PRN (13:13)
--- NOTE | 2019-01-22 18:29 | NUR ---
Problems reprioritized. Patient report given, questions answered & plan of care reviewed with Laura ELLIOTT.
--- NOTE | 2019-01-22 18:35 | NUR ---
Patient in room ICU 2041. I have received report from LEXI Pinto and had the opportunity to ask questions and assume patient care.
[2019-01-22] MEDS: sennosides/docusate sodium tablet PO SCH (19:58)
[2019-01-22] MEDS: diphenhydrAMINE 25mg capsule PO PRN (20:05)
[2019-01-23] VITALS (24 sets, daily range): BP systolic 98–124; BP diastolic 67–93
[2019-01-23] MEDS: methylPREDNISolone sod succ 125mg/2ml vial IV SCH ×3 (00:24→15:44)
[2019-01-23 04:31] LABS: BASOPHILS # (AUTO) 0.1 X10'3 (0-0.2); BASOPHILS % (AUTO) 0.6 % (0-1); EOSINOPHILS % (AUTO) 0.1 % (0-6); HEMATOCRIT 33.7 % (35.0-45.0); HEMOGLOBIN 11.2 g/dl (12.0-16.0); LYMPHOCYTES # (AUTO) 0.9 X10'3 (1.1-4.8); LYMPHOCYTES % (AUTO) 4.7 % (21-51); MEAN CORPUSCULAR HEMOGLOBIN 31.3 PG (27.0-31.0); MEAN CORPUSCULAR HGB CONC 33.3 g/dL (33.0-36.5); MEAN PLATELET VOLUME 7.9 FL (7.4-10.4); MONOCYTES # (AUTO) 0.8 X10'3 (0-0.9); MONOCYTES % (AUTO) 4.1 % (2-12); NEUTROPHILS # (AUTO) 16.7 X10'3 (1.8-7.7); NEUTROPHILS % (AUTO) 90.5 % (42-75); PLATELET COUNT 424 X10'3 (140-440); RED BLOOD COUNT 3.58 X10'6 (4.20-5.60); RED CELL DISTRIBUTION WIDTH 15.4 % (11.5-14.5); WHITE BLOOD COUNT 18.4 X10'3 (4.5-11.0)
[2019-01-23 04:46] LABS: ALANINE AMINOTRANSFERASE 28 U/L (12-78); ALBUMIN 2.3 G/DL (3.4-5.0); ALBUMIN/GLOBULIN RATIO 0.5 (1.1-1.5); ALKALINE PHOSPHATASE 90 IU/L (46-116); ANION GAP 8 (8-16); ASPARTATE AMINO TRANSFERASE 19 U/L (10-37); BILIRUBIN,TOTAL 0.2 MG/DL (0.1-1.0); BLOOD UREA NITROGEN 48 MG/DL (7-18); BUN/CREATININE RATIO 52.7 (6.6-38.0); CALCIUM 8.5 MG/DL (8.5-10.1); CHLORIDE 99 MMOL/L (99-107); CREATININE 0.91 MG/DL (0.40-0.90); GLUCOSE 251 MG/DL (70-104); MAGNESIUM 2.2 MG/DL (1.5-2.4); PHOSPHORUS 3.1 MG/DL (2.3-4.5); POTASSIUM 4.4 MMOL/L (3.5-5.1); SODIUM 135 MMOL/L (135-145); TOTAL CARBON DIOXIDE 27.9 MMOL/L (24-32); TOTAL PROTEIN 6.6 G/DL (6.4-8.2); eGFR 62 ML/MIN
[2019-01-23 06:24] LABS: TOTAL CELLS COUNTED 100
[2019-01-23 06:25] LABS: ANISOCYTOSIS 1+; PLATELET ESTIMATE NORMAL; POLYCHROMASIA 1+
--- NOTE | 2019-01-23 06:38 | NUR ---
Problems reprioritized. Patient report given, questions answered & plan of care reviewed with LEXI Espinosa.
--- NOTE | 2019-01-23 06:43 | NUR ---
Patient in room ICU 2041. I have received report from LEXI ROBERTS and had the opportunity to ask questions and assume patient care.
--- NOTE | 2019-01-23 06:44 | NUR ---
PAGED RT:2041 IS REQUESTING PRN RESP TREATNMNET FOR SOB. NAHOMY FAIR 6813.
[2019-01-23] MEDS: ipratropium/albuterol 3ml nebule NEB SCH ×3 (07:56→20:25)
[2019-01-23] MEDS: budesonide 0.5mg/2ml UD nebule IH SCH ×2 (07:56→20:25)
[2019-01-23] MEDS: lactose-reduced food (Ensure High Protein) 237ml bottle PO SCH ×4 (08:00→18:00)
[2019-01-23] MEDS: K and/or MAG REPLACEMENT MC SCH (08:00)
[2019-01-23] MEDS: docusate sod 100mg capsule PO SCH ×2 (08:00→19:14)
[2019-01-23] MEDS: carBAMazepine Ext. Release 200 MG TAB.ER.12H PO SCH ×2 (08:21→20:19)
[2019-01-23] MEDS: famotidine 20mg tablet PO SCH ×2 (08:22→20:19)
[2019-01-23] MEDS: phenytoin sod ER 100mg capsule PO SCH ×2 (08:22→20:18)
[2019-01-23] MEDS: apixaban 5mg tablet PO SCH ×2 (08:22→20:18)
[2019-01-23] MEDS: nystatin 15 GM powder TP SCH ×3 (08:23→20:19)
--- NOTE | 2019-01-23 10:00 | NUR ---
DURING CC ROUNDS, DR. ROTH NOTIFIED OF BG 251 ON CHEM PANEL, A1C 6.7 ON 11-30-18, WBC 18.4, ON SOLUMEDROL IV, URINE SHOWED 3+ BACTERIA/50-100 WBC, HAS OUT PATIENT APPOINTMENT TODAY WITH DR. SALDAÑA REGARDING ONCOLOGY, GETS SOS/TACHYCARDIC WITH TRANSFER TO [facility] FROM CHAIR, AND OUR DIETARY HAD NO ENSURE THIS AM.
--- NOTE | 2019-01-23 10:23 | NUR ---
PAGED RT:2041 IS C/O INCREASED SOB. ASKING FOR HELP. SAT 91% ON HF 40% FI02. NAHOMY 2734
--- NOTE | 2019-01-23 10:36 | NUR ---
2041 IS C/O INCREASE SOB, REQUESTING RT. SAT 90-93% ON HF 40%FI02. SHE IS ASKING ME TO "TURN IT UP" I EXPLAINED THAT WOULD NOT BE APPROPRIATE AT THIS TIME. NAHOMY 7814. TY.
--- NOTE | 2019-01-23 10:39 | NUR ---
C/O "FEELS LIKE AN ELEPHANT SITTING ON MY CHEST". ASSIST TO SIT UP HIGH IN CHAIR WITH PILLOW SUPPORT WITH SOME STATED RELIEF. DR. ROTH NOTIFIED. STATES "THAT IS OKAY, NO INTERVENTION NEEDED AT THIS TIME"HAVE PAGED RT X2. 02 SAT REMAINS 93% ON 40% FI02. RT HERE.
--- NOTE | 2019-01-23 11:29 | NUR ---
DR. ROTH NOTIFIED OF CONTINUING TO C/O "SOB, HEAVINESS IN CHEST", RT STATES "HAVE NO MORE TREATMENT I CAN ADM.". WHEN ASKED MD IF RESPIRATORY STATUS TO FRAGILE FOR ANTI ANXIETY AGENT, STATES "YES". WILL CONTINUE TO MONITOR.
[2019-01-23] MEDS: morphine 2 MG/ML inj. syringe IV PRN ×3 (11:55→22:41)
--- NOTE | 2019-01-23 18:42 | NUR ---
Problems reprioritized. Patient report given, questions answered & plan of care reviewed with LEXI ROBERTS.
[2019-01-23] MEDS: sennosides/docusate sodium tablet PO SCH (19:14)
[2019-01-23] MEDS: diphenhydrAMINE 25mg capsule PO PRN (20:18)
[2019-01-24] VITALS (24 sets, daily range): BP systolic 99–129; BP diastolic 62–100
[2019-01-24] MEDS: methylPREDNISolone sod succ 125mg/2ml vial IV SCH ×3 (00:09→15:14)
[2019-01-24 04:42] LABS: BASOPHILS # (AUTO) 0.1 X10'3 (0-0.2); BASOPHILS % (AUTO) 0.4 % (0-1); EOSINOPHILS # (AUTO) 0.1 X10'3 (0-0.9); EOSINOPHILS % (AUTO) 0.3 % (0-6); HEMATOCRIT 34.4 % (35.0-45.0); HEMOGLOBIN 11.3 g/dl (12.0-16.0); LYMPHOCYTES % (AUTO) 5.2 % (21-51); MEAN CORPUSCULAR HEMOGLOBIN 31.1 PG (27.0-31.0); MEAN CORPUSCULAR VOLUME 94.2 FL (78-98); MONOCYTES # (AUTO) 1.1 X10'3 (0-0.9); MONOCYTES % (AUTO) 5.7 % (2-12); NEUTROPHILS # (AUTO) 16.6 X10'3 (1.8-7.7); NEUTROPHILS % (AUTO) 88.4 % (42-75); PLATELET COUNT 389 X10'3 (140-440); RED BLOOD COUNT 3.65 X10'6 (4.20-5.60); RED CELL DISTRIBUTION WIDTH 15.7 % (11.5-14.5); WHITE BLOOD COUNT 18.8 X10'3 (4.5-11.0)
[2019-01-24 04:52] LABS: ALANINE AMINOTRANSFERASE 23 U/L (12-78); ALBUMIN 2.3 G/DL (3.4-5.0); ALBUMIN/GLOBULIN RATIO 0.6 (1.1-1.5); ALKALINE PHOSPHATASE 87 IU/L (46-116); ANION GAP 8 (8-16); ASPARTATE AMINO TRANSFERASE 19 U/L (10-37); BILIRUBIN,TOTAL 0.2 MG/DL (0.1-1.0); BLOOD UREA NITROGEN 45 MG/DL (7-18); BUN/CREATININE RATIO 50.6 (6.6-38.0); CALCIUM 8.3 MG/DL (8.5-10.1); CHLORIDE 100 MMOL/L (99-107); CREATININE 0.89 MG/DL (0.40-0.90); GLUCOSE 213 MG/DL (70-104); PHOSPHORUS 3.6 MG/DL (2.3-4.5); POTASSIUM 4.3 MMOL/L (3.5-5.1); SODIUM 136 MMOL/L (135-145); TOTAL CARBON DIOXIDE 28.1 MMOL/L (24-32); TOTAL PROTEIN 6.4 G/DL (6.4-8.2); eGFR 64 ML/MIN
--- NOTE | 2019-01-24 06:23 | NUR ---
Problems reprioritized. Patient report given, questions answered & plan of care reviewed with LEXI marrufo and LEXI Ren.
--- NOTE | 2019-01-24 06:30 | NUR ---
Patient in room ICU 2041. I have received report from Laura ELLIOTT and had the opportunity to ask questions and assume patient care.
[2019-01-24] MEDS: famotidine 20mg tablet PO SCH ×2 (07:41→19:56)
[2019-01-24] MEDS: apixaban 5mg tablet PO SCH ×2 (07:41→19:56)
[2019-01-24] MEDS: phenytoin sod ER 100mg capsule PO SCH ×2 (07:41→19:55)
[2019-01-24] MEDS: morphine 2 MG/ML inj. syringe IV PRN ×2 (07:41→21:44)
[2019-01-24] MEDS: carBAMazepine Ext. Release 200 MG TAB.ER.12H PO SCH ×2 (07:42→19:56)
[2019-01-24] MEDS: docusate sod 100mg capsule PO SCH ×2 (07:46→19:48)
[2019-01-24] MEDS: nystatin 15 GM powder TP SCH ×3 (07:51→21:20)
[2019-01-24] MEDS: K and/or MAG REPLACEMENT MC SCH (08:00)
[2019-01-24] MEDS: lactose-reduced food (Ensure High Protein) 237ml bottle PO SCH ×3 (08:00→18:00)
[2019-01-24] MEDS: budesonide 0.5mg/2ml UD nebule IH SCH ×2 (09:17→20:11)
[2019-01-24] MEDS: ipratropium/albuterol 3ml nebule NEB SCH ×3 (09:17→20:11)
--- NOTE | 2019-01-24 11:40 | NUR ---
Reassessment: Pt continues to have poor PO intake, avg 0-25% on a regular diet w/ 50% avg documented ONS consumption. Pt PO intake may be greater than what is documented due to large bag of ONS brought from home and pt is drinking ONS between meals. Wt increase noted but likely error using bed scales. [facility] 01/22. Will continue to monitor. Rec: 1. continue regular diet 2. chocolate ensure high protein TIDWM 3. routine bowel care 4. wt per rx Addendum: 01/24/19 at 1141 by Wing Wayne PRAJAPATI Amended: Links added. Addendum: 01/24/19 at [address] VICTORINA Approreynold
--- NOTE | 2019-01-24 18:30 | NUR ---
RECEIVED SBAR FROM SONYA ELLIOTT NO QUESTIONS OR CONCERNS AFTER ASSUMING CARE
[2019-01-24] MEDS: diphenhydrAMINE 25mg capsule PO PRN (19:56)
--- NOTE | 2019-01-24 20:37 | NUR ---
PATIENT IN BED HOB AT 45 DEGREES RR EVEN UN LABORED TELEVISION ON NO OBSERVABLE S/S OF ACUTE STRESS AT THIS TIME WILL CONTINUE TO MONITOR
[2019-01-24] MEDS: sennosides/docusate sodium tablet PO SCH (21:00)
--- NOTE | 2019-01-24 23:18 | NUR ---
PATIENT KEEPS TAKING NC OUT OF HER NARES WHEN REMINDED SPO2 GOES WNL, PATIENT IN BED EYES CLOSED RR EVEN UN LABORED NO OBSERVABLE S/S OF ACUTE STRESS AT THIS TIME
[2019-01-25] VITALS (22 sets, daily range): BP systolic 75–128; BP diastolic 48–91
[2019-01-25] MEDS: methylPREDNISolone sod succ 125mg/2ml vial IV SCH ×3 (00:36→17:18)
--- NOTE | 2019-01-25 01:49 | NUR ---
PATIENT IN BED HOB AT 45% EYES CLOSED COVERS ON RR EVEN UN LABORED NO OBSERVABLE S/S OF ACUTE STRESS AT THIS TIME WILL CONTINUE TO MONITOR
--- NOTE | 2019-01-25 02:36 | NUR ---
PATIENT CURING OVEN ATTENDANT LIGHT ASKED FOR SOME FRESH WATER, SUPPLIED PATIENT WITH LIP MOISTURIZER WELL, PATIENT IN BED RR EVEN UN LABORED NO OBSERVABLE S/S OF ACUTE STRESS AT THIS TIME
--- NOTE | 2019-01-25 04:44 | NUR ---
PATIENT IN BED EYES CLOSED RR EVEN UN LABORED NO OBSERVABLE S/S OF ACUTE STRESS AT THIS TIME WILL CONTINUE TO MONITOR
[2019-01-25 04:55] LABS: EOSINOPHILS # (AUTO) 0.1 X10'3 (0-0.9); EOSINOPHILS % (AUTO) 0.5 % (0-6); HEMOGLOBIN 12.5 g/dl (12.0-16.0); LYMPHOCYTES # (AUTO) 0.7 X10'3 (1.1-4.8); NEUTROPHILS % (AUTO) 90.7 % (42-75)
[2019-01-25 04:58] LABS: BASOPHILS # (AUTO) 0.1 X10'3 (0-0.2); BASOPHILS % (AUTO) 0.7 % (0-1); HEMATOCRIT 38.1 % (35.0-45.0); LYMPHOCYTES % (AUTO) 4.6 % (21-51); MEAN CORPUSCULAR HEMOGLOBIN 31.5 PG (27.0-31.0); MEAN CORPUSCULAR HGB CONC 32.8 g/dL (33.0-36.5); MEAN PLATELET VOLUME 8.2 FL (7.4-10.4); MONOCYTES # (AUTO) 0.6 X10'3 (0-0.9); MONOCYTES % (AUTO) 3.5 % (2-12); NEUTROPHILS # (AUTO) 14.8 X10'3 (1.8-7.7); PLATELET COUNT 231 X10'3 (140-440); RED BLOOD COUNT 3.97 X10'6 (4.20-5.60); RED CELL DISTRIBUTION WIDTH 16.3 % (11.5-14.5); WHITE BLOOD COUNT 16.3 X10'3 (4.5-11.0)
[2019-01-25 05:12] LABS: ALANINE AMINOTRANSFERASE 23 U/L (12-78); ALBUMIN 2.5 G/DL (3.4-5.0); ALBUMIN/GLOBULIN RATIO 0.6 (1.1-1.5); ALKALINE PHOSPHATASE 95 IU/L (46-116); ANION GAP 5 (8-16); ASPARTATE AMINO TRANSFERASE 21 U/L (10-37); BILIRUBIN,TOTAL 0.3 MG/DL (0.1-1.0); BLOOD UREA NITROGEN 41 MG/DL (7-18); CALCIUM 8.6 MG/DL (8.5-10.1); CHLORIDE 101 MMOL/L (99-107); GLUCOSE 203 MG/DL (70-104); MAGNESIUM 2.2 MG/DL (1.5-2.4); PHOSPHORUS 4.2 MG/DL (2.3-4.5); POTASSIUM 4.6 MMOL/L (3.5-5.1); SODIUM 137 MMOL/L (135-145); TOTAL CARBON DIOXIDE 30.7 MMOL/L (24-32); TOTAL PROTEIN 6.8 G/DL (6.4-8.2); eGFR 56 ML/MIN
--- NOTE | 2019-01-25 05:59 | NUR ---
PATIENT UP WITH MIN ASSIST TO BEDSIDE COMMODE FOR URINATION NO BM PATIENT IS PASSING GAS
[2019-01-25 06:03] LABS: ANISOCYTOSIS 1+; LARGE PLATELETS FEW; PLATELET ESTIMATE NORMAL; POLYCHROMASIA 1+
--- NOTE | 2019-01-25 06:48 | NUR ---
SBAR TO LEXUS ELLIOTT NO QUESTIONS OR CONCERNS AFTER ASSUMING CARE
--- NOTE | 2019-01-25 06:53 | NUR ---
Patient in room ICU 2041. I have received report from Beatriz ELLIOTT and had the opportunity to ask questions and assume patient care.
[2019-01-25] MEDS: nystatin 15 GM powder TP SCH ×3 (07:58→20:14)
[2019-01-25] MEDS: docusate sod 100mg capsule PO SCH ×2 (07:58→20:10)
[2019-01-25] MEDS: apixaban 5mg tablet PO SCH ×2 (07:58→20:10)
[2019-01-25] MEDS: phenytoin sod ER 100mg capsule PO SCH ×2 (07:59→20:10)
[2019-01-25] MEDS: famotidine 20mg tablet PO SCH ×2 (07:59→20:10)
[2019-01-25] MEDS: K and/or MAG REPLACEMENT MC SCH (08:00)
[2019-01-25] MEDS: lactose-reduced food (Ensure High Protein) 237ml bottle PO SCH ×3 (08:00→18:00)
[2019-01-25] MEDS: morphine 2 MG/ML inj. syringe IV PRN (08:45)
[2019-01-25] MEDS: carBAMazepine Ext. Release 200 MG TAB.ER.12H PO SCH ×2 (08:52→20:10)
[2019-01-25] MEDS: ipratropium/albuterol 3ml nebule NEB SCH ×3 (10:00→20:56)
[2019-01-25] MEDS: budesonide 0.5mg/2ml UD nebule IH SCH ×2 (10:00→20:56)
--- NOTE | 2019-01-25 18:36 | NUR ---
Problems reprioritized. Patient report given, questions answered & plan of care reviewed with Elizabet ELLIOTT.
--- NOTE | 2019-01-25 19:45 | NUR ---
PT is back to bed after sitting up in chair for dinner. No s/s of distress noted at this time. VSS. PT is receiving 5L of high flow O2, tolerating well O2 sat >90%. PT did not have much of an appetite and stated she ate a lot for lunch. PT has no complaints at this time. Bed is locked and low. Call light is with in reach. Will continue to monitor.
--- NOTE | 2019-01-25 19:45 | NUR ---
Patient in room ICU 2041. I have received report from Mimi ELLIOTT, and had the opportunity to ask questions and assume patient care.
[2019-01-25] MEDS: sennosides/docusate sodium tablet PO SCH (20:14)
[2019-01-25] MEDS: diphenhydrAMINE 25mg capsule PO PRN (20:17)
[2019-01-26] VITALS (19 sets, daily range): BP systolic 105–141; BP diastolic 71–99
[2019-01-26] MEDS: HYDROcodone/acetaminophen 10/325mg tab PO PRN ×3 (00:05→21:32)
[2019-01-26] MEDS: methylPREDNISolone sod succ 125mg/2ml vial IV SCH ×4 (00:39→23:15)
[2019-01-26 05:13] LABS: BASOPHILS % (AUTO) 0.2 % (0-1); EOSINOPHILS # (AUTO) 0.1 X10'3 (0-0.9); EOSINOPHILS % (AUTO) 0.4 % (0-6); HEMOGLOBIN 12.1 g/dl (12.0-16.0); LYMPHOCYTES # (AUTO) 0.8 X10'3 (1.1-4.8); LYMPHOCYTES % (AUTO) 4.4 % (21-51); MEAN CORPUSCULAR HEMOGLOBIN 31.3 PG (27.0-31.0); MEAN CORPUSCULAR HGB CONC 32.6 g/dL (33.0-36.5); MEAN CORPUSCULAR VOLUME 96.1 FL (78-98); MEAN PLATELET VOLUME 8.1 FL (7.4-10.4); MONOCYTES # (AUTO) 0.7 X10'3 (0-0.9); MONOCYTES % (AUTO) 3.7 % (2-12); NEUTROPHILS # (AUTO) 16.7 X10'3 (1.8-7.7); NEUTROPHILS % (AUTO) 91.3 % (42-75); PLATELET COUNT 312 X10'3 (140-440); RED BLOOD COUNT 3.85 X10'6 (4.20-5.60); RED CELL DISTRIBUTION WIDTH 16.4 % (11.5-14.5); WHITE BLOOD COUNT 18.2 X10'3 (4.5-11.0)
[2019-01-26 05:34] LABS: ALBUMIN 2.3 G/DL (3.4-5.0); ANION GAP 8 (8-16); BLOOD UREA NITROGEN 37 MG/DL (7-18); BUN/CREATININE RATIO 38.5 (6.6-38.0); CALCIUM 8.5 MG/DL (8.5-10.1); CHLORIDE 100 MMOL/L (99-107); CREATININE 0.96 MG/DL (0.40-0.90); GLUCOSE 238 MG/DL (70-104); MAGNESIUM 2.1 MG/DL (1.5-2.4); POTASSIUM 4.3 MMOL/L (3.5-5.1); SODIUM 136 MMOL/L (135-145); TOTAL CARBON DIOXIDE 28.2 MMOL/L (24-32); eGFR 59 ML/MIN
--- NOTE | 2019-01-26 06:27 | NUR ---
Patient in room ICU 2041. I have received report from LEXI Abraham and had the opportunity to ask questions and assume patient care.
--- NOTE | 2019-01-26 06:39 | NUR ---
Problems reprioritized. Patient report given, questions answered & plan of care reviewed with Michel ELLIOTT.
[2019-01-26] MEDS: carBAMazepine Ext. Release 200 MG TAB.ER.12H PO SCH ×2 (07:22→20:11)
[2019-01-26] MEDS: famotidine 20mg tablet PO SCH ×2 (07:23→19:36)
[2019-01-26] MEDS: apixaban 5mg tablet PO SCH ×2 (07:23→19:36)
[2019-01-26] MEDS: phenytoin sod ER 100mg capsule PO SCH ×2 (07:23→19:36)
[2019-01-26] MEDS: nystatin 15 GM powder TP SCH ×3 (07:23→20:13)
[2019-01-26] MEDS: docusate sod 100mg capsule PO SCH ×2 (07:23→19:36)
[2019-01-26] MEDS: K and/or MAG REPLACEMENT MC SCH (08:00)
[2019-01-26] MEDS: lactose-reduced food (Ensure High Protein) 237ml bottle PO SCH ×3 (08:08→18:00)
[2019-01-26] MEDS: ipratropium/albuterol 3ml nebule NEB SCH ×3 (08:58→20:11)
[2019-01-26] MEDS: budesonide 0.5mg/2ml UD nebule IH SCH ×2 (08:58→20:11)
--- NOTE | 2019-01-26 12:04 | NUR ---
Reassessment: Pt PO remains poor 0%/refusing past few meals and overall 0-25% avg PO diet mainly drinking ensures from both here and outside not meeting needs. Pt seen by RD and reports did not sleep well which always makers her nauseous and currently quite fatigued as well. RD encouraged importance of protein to regain strength. Pt requests beef broth w/ crackers, jello, and freeze pop for lunch today as well as peanut butter and 2 cookies on the side for dinner tonight. Dietary notified of pt preferences. Given pt essentially 0-25% PO meals since admit 10 days in addition to mild weakness and BLE +3 pitting edema; qualifies for severe malnutrition at this time. notified. Pt unable to wake during RD f/u visit; written malnutrition ed left at bedside. LBM 01/24. Will continue to monitor for additional preferences this admit. Rec: 1. continue regular diet; honor pt food preferences 2. chocolate ensure high protein TIDWM; ensures from home by SO 3. routine bowel care 4. weekly wts Addendum: 01/26/19 at [address] Amended: Links added.
--- NOTE | 2019-01-26 15:19 | NUR ---
Ga Addendum: 01/26/19 at 1520 by Carrie Santana RN Gave report to LEXI Ambrocio
--- NOTE | 2019-01-26 15:44 | NUR ---
Reviewed and in agreeance with assessment of prior RN.
--- NOTE | 2019-01-26 15:47 | NUR ---
transferred to pcu via wheelchair with all belongings. Pt alert, oriented, and stable for transfer. Accompanied by significant other. Receiving nurse aware of pt's arrival
--- NOTE | 2019-01-26 18:00 | NUR ---
Patient in room PCU 3012. I have received report from KERVIN ELLIOTT and had the opportunity to ask questions and assume patient care.
--- NOTE | 2019-01-26 18:15 | NUR ---
Problems reprioritized. Patient report given, questions answered & plan of care reviewed with LEXI Knight.
[2019-01-26] MEDS: sennosides/docusate sodium tablet PO SCH (20:12)
[2019-01-27 02:00] VITALS: BP 126/92
[2019-01-27 06:00] VITALS: BP 116/78
--- NOTE | 2019-01-27 06:27 | NUR ---
Patient in room PCU 3012. I have received report from LEXI Voss and had the opportunity to ask questions and assume patient care.
--- NOTE | 2019-01-27 06:32 | NUR ---
Problems reprioritized. Patient report given, questions answered & plan of care reviewed with KERVIN ELLIOTT.
[2019-01-27 06:40] LABS: BASOPHILS % (AUTO) 0.2 % (0-1); EOSINOPHILS # (AUTO) 0.1 X10'3 (0-0.9); EOSINOPHILS % (AUTO) 0.5 % (0-6); HEMATOCRIT 37.9 % (35.0-45.0); HEMOGLOBIN 12.3 g/dl (12.0-16.0); LYMPHOCYTES # (AUTO) 1.1 X10'3 (1.1-4.8); LYMPHOCYTES % (AUTO) 6.5 % (21-51); MEAN CORPUSCULAR HEMOGLOBIN 31.6 PG (27.0-31.0); MEAN CORPUSCULAR HGB CONC 32.6 g/dL (33.0-36.5); MEAN CORPUSCULAR VOLUME 97.1 FL (78-98); MEAN PLATELET VOLUME 8.8 FL (7.4-10.4); MONOCYTES % (AUTO) 5.8 % (2-12); NEUTROPHILS # (AUTO) 14.3 X10'3 (1.8-7.7); PLATELET COUNT 278 X10'3 (140-440); RED CELL DISTRIBUTION WIDTH 16.9 % (11.5-14.5); WHITE BLOOD COUNT 16.4 X10'3 (4.5-11.0)
[2019-01-27 07:05] LABS: ALBUMIN 2.4 G/DL (3.4-5.0); ANION GAP 10 (8-16); BLOOD UREA NITROGEN 38 MG/DL (7-18); BUN/CREATININE RATIO 39.2 (6.6-38.0); CALCIUM 8.2 MG/DL (8.5-10.1); CHLORIDE 99 MMOL/L (99-107); CREATININE 0.97 MG/DL (0.40-0.90); GLUCOSE 231 MG/DL (70-104); MAGNESIUM 2.1 MG/DL (1.5-2.4); PHOSPHORUS 3.9 MG/DL (2.3-4.5); POTASSIUM 4.3 MMOL/L (3.5-5.1); SODIUM 136 MMOL/L (135-145); TOTAL CARBON DIOXIDE 26.8 MMOL/L (24-32); eGFR 58 ML/MIN
[2019-01-27] MEDS: K and/or MAG REPLACEMENT MC SCH (07:11)
[2019-01-27] MEDS: budesonide 0.5mg/2ml UD nebule IH SCH ×2 (07:56→19:55)
[2019-01-27] MEDS: ipratropium/albuterol 3ml nebule NEB SCH ×3 (07:56→19:55)
[2019-01-27] MEDS: lactose-reduced food (Ensure High Protein) 237ml bottle PO SCH ×3 (08:16→18:15)
[2019-01-27] MEDS: docusate sod 100mg capsule PO SCH ×2 (08:19→20:25)
[2019-01-27] MEDS: apixaban 5mg tablet PO SCH ×2 (08:19→20:25)
[2019-01-27] MEDS: carBAMazepine Ext. Release 200 MG TAB.ER.12H PO SCH ×2 (08:19→20:25)
[2019-01-27] MEDS: methylPREDNISolone sod succ 125mg/2ml vial IV SCH ×2 (08:19→16:28)
[2019-01-27] MEDS: famotidine 20mg tablet PO SCH ×2 (08:19→20:25)
[2019-01-27] MEDS: nystatin 15 GM powder TP SCH ×3 (08:24→20:28)
[2019-01-27] MEDS: phenytoin sod ER 100mg capsule PO SCH ×2 (08:27→20:25)
[2019-01-27] MEDS: HYDROcodone/acetaminophen 10/325mg tab PO PRN (08:50)
[2019-01-27] MEDS ORDERED: dextrose ORAL solution 15 GM/59 ML bottle PO PRN ×2 (09:20)
[2019-01-27] MEDS ORDERED: glucagon, human recombinant 1mg kit SUBCUT PRN (09:20)
[2019-01-27] MEDS ORDERED: MESSAGE TO PHARMACY PO ONE (09:20)
[2019-01-27] MEDS ORDERED: dextrose 50%-water 50ml dispensing syringe IV PRN ×2 (09:20)
[2019-01-27] MEDS: morphine 2 MG/ML inj. syringe IV PRN (09:41)
[2019-01-27 11:00] VITALS: BP 122/92
--- NOTE | 2019-01-27 12:29 | NUR ---
Assessed FSBG, 195. Upon inquiry, pt states that she ate recently.
[2019-01-27 15:00] VITALS: BP 126/77
[2019-01-27 18:00] VITALS: BP 114/79
--- NOTE | 2019-01-27 18:00 | NUR ---
Patient in room PCU 3012. I have received report from Cristóbal ELLIOTT and had the opportunity to ask questions and assume patient care.
--- NOTE | 2019-01-27 18:33 | NUR ---
Problems reprioritized. Patient report given, questions answered & plan of care reviewed with LEXI Dean.
[2019-01-27] MEDS: insulin Lispro (HumaLOG) vial - multi-dose SQ SCH (19:33)
[2019-01-27] MEDS: sennosides/docusate sodium tablet PO SCH (20:26)
[2019-01-27 22:00] VITALS: BP 110/86
[2019-01-27] MEDS: insulin glargine (Lantus) pen - multi-dose SQ SCH (22:17)
[2019-01-28] MEDS: methylPREDNISolone sod succ 125mg/2ml vial IV SCH ×4 (00:25→23:29)
[2019-01-28] MEDS: HYDROcodone/acetaminophen 10/325mg tab PO PRN (00:31)
[2019-01-28 03:00] VITALS: BP 111/82
[2019-01-28 06:03] LABS: BASOPHILS % (AUTO) 0.2 % (0-1); EOSINOPHILS # (AUTO) 0.1 X10'3 (0-0.9); EOSINOPHILS % (AUTO) 0.3 % (0-6); HEMATOCRIT 39.1 % (35.0-45.0); HEMOGLOBIN 12.6 g/dl (12.0-16.0); LYMPHOCYTES # (AUTO) 0.9 X10'3 (1.1-4.8); LYMPHOCYTES % (AUTO) 5.3 % (21-51); MEAN CORPUSCULAR HEMOGLOBIN 31.6 PG (27.0-31.0); MEAN CORPUSCULAR HGB CONC 32.3 g/dL (33.0-36.5); MEAN CORPUSCULAR VOLUME 97.7 FL (78-98); MEAN PLATELET VOLUME 8.4 FL (7.4-10.4); MONOCYTES # (AUTO) 0.7 X10'3 (0-0.9); MONOCYTES % (AUTO) 4.2 % (2-12); NEUTROPHILS # (AUTO) 15.5 X10'3 (1.8-7.7); PLATELET COUNT 252 X10'3 (140-440); WHITE BLOOD COUNT 17.2 X10'3 (4.5-11.0)
[2019-01-28 06:20] LABS: ALBUMIN 2.5 G/DL (3.4-5.0); ANION GAP 9 (8-16); BLOOD UREA NITROGEN 39 MG/DL (7-18); BUN/CREATININE RATIO 45.3 (6.6-38.0); CALCIUM 8.5 MG/DL (8.5-10.1); CHLORIDE 99 MMOL/L (99-107); CREATININE 0.86 MG/DL (0.40-0.90); GLUCOSE 176 MG/DL (70-104); MAGNESIUM 2.2 MG/DL (1.5-2.4); PHOSPHORUS 4.3 MG/DL (2.3-4.5); POTASSIUM 4.4 MMOL/L (3.5-5.1); SODIUM 135 MMOL/L (135-145); TOTAL CARBON DIOXIDE 27.1 MMOL/L (24-32); eGFR 66 ML/MIN
[2019-01-28 06:30] VITALS: BP 111/82
--- NOTE | 2019-01-28 06:30 | NUR ---
Patient in room PCU 3012. I have received report from Dianne ELLIOTT and had the opportunity to ask questions and assume patient care.
[2019-01-28] MEDS: docusate sod 100mg capsule PO SCH ×2 (07:28→19:29)
[2019-01-28] MEDS: apixaban 5mg tablet PO SCH ×2 (07:28→19:29)
[2019-01-28] MEDS: nystatin 15 GM powder TP SCH ×3 (07:28→21:00)
[2019-01-28] MEDS: famotidine 20mg tablet PO SCH ×2 (07:28→19:29)
[2019-01-28] MEDS: carBAMazepine Ext. Release 200 MG TAB.ER.12H PO SCH ×2 (07:31→19:30)
[2019-01-28] MEDS: phenytoin sod ER 100mg capsule PO SCH ×2 (07:31→19:30)
--- NOTE | 2019-01-28 07:32 | NUR ---
Problems reprioritized. Patient report given, questions answered & plan of care reviewed with Millie ELLIOTT.
[2019-01-28] MEDS: K and/or MAG REPLACEMENT MC SCH (07:36)
[2019-01-28] MEDS: ipratropium/albuterol 3ml nebule NEB SCH ×3 (08:00→21:32)
[2019-01-28] MEDS: budesonide 0.5mg/2ml UD nebule IH SCH ×2 (08:00→21:32)
[2019-01-28] MEDS: lactose-reduced food (Ensure High Protein) 237ml bottle PO SCH ×3 (08:04→18:00)
[2019-01-28] MEDS: insulin Lispro (HumaLOG) vial - multi-dose SQ SCH ×2 (09:22→13:47)
[2019-01-28] MEDS: morphine 2 MG/ML inj. syringe IV PRN (10:04)
[2019-01-28 11:00] VITALS: BP 116/83
[2019-01-28 15:00] VITALS: BP 110/78
--- NOTE | 2019-01-28 16:09 | NUR ---
Pt refused wound care photos because she was feeling cramped and wanted to just relax. Will pass onto NOC nurse to try again later
--- NOTE | 2019-01-28 18:08 | NUR ---
Problems reprioritized. Patient report given, questions answered & plan of care reviewed with Dianne ELLIOTT. Pt stable at time of shift change
[2019-01-28 19:00] VITALS: BP 129/85
[2019-01-28] MEDS: sennosides/docusate sodium tablet PO SCH (20:52)
[2019-01-28] MEDS: insulin glargine (Lantus) pen - multi-dose SQ SCH (21:11)
[2019-01-28 23:00] VITALS: BP 106/78
[2019-01-29] MEDS: HYDROcodone/acetaminophen 10/325mg tab PO PRN ×3 (00:39→20:33)
[2019-01-29 03:00] VITALS: BP 126/86
--- NOTE | 2019-01-29 05:46 | NUR ---
Patient in room PCU 3012. I have received report from Millie ELLIOTT and had the opportunity to ask questions and assume patient care.
[2019-01-29 06:03] LABS: PHOSPHORUS 5.1 MG/DL (2.3-4.5)
--- NOTE | 2019-01-29 06:25 | NUR ---
Patient in room PCU 3012B. I have received report from Dianne ELLIOTT and had the opportunity to ask questions and assume patient care. Pt sitting up in bed watching tv and asked for breathing treatment. I paged RT for breathing treatment, and Dianne said she had paged prior shift change as well.
[2019-01-29 06:30] VITALS: BP 126/86
--- NOTE | 2019-01-29 06:37 | NUR ---
Paged RT again RE Sujit Alexander. [phone]. Cannot get patient above 86 O2 on 9 liters NC. Pt complains of trouble breathing. Please come SAIDA
[2019-01-29] MEDS: budesonide 0.5mg/2ml UD nebule IH SCH ×2 (06:48→20:00)
[2019-01-29] MEDS: ipratropium/albuterol 3ml nebule NEB SCH ×3 (06:48→20:00)
[2019-01-29] MEDS: methylPREDNISolone sod succ 125mg/2ml vial IV SCH ×3 (07:39→23:34)
[2019-01-29] MEDS: docusate sod 100mg capsule PO SCH ×2 (07:39→19:54)
[2019-01-29] MEDS: famotidine 20mg tablet PO SCH ×2 (07:39→20:00)
[2019-01-29] MEDS: apixaban 5mg tablet PO SCH ×2 (07:39→20:00)
[2019-01-29] MEDS: phenytoin sod ER 100mg capsule PO SCH ×2 (07:39→19:59)
[2019-01-29] MEDS: nystatin 15 GM powder TP SCH ×3 (07:40→20:29)
[2019-01-29] MEDS: lactose-reduced food (Ensure High Protein) 237ml bottle PO SCH ×3 (07:43→18:09)
[2019-01-29] MEDS: carBAMazepine Ext. Release 200 MG TAB.ER.12H PO SCH ×2 (07:43→20:00)
[2019-01-29] MEDS: K and/or MAG REPLACEMENT MC SCH (08:00)
[2019-01-29] MEDS: insulin Lispro (HumaLOG) vial - multi-dose SQ SCH ×3 (08:54→19:34)
[2019-01-29 10:05] LABS: ALBUMIN 2.6 G/DL (3.4-5.0); ANION GAP 8 (8-16); BLOOD UREA NITROGEN 47 MG/DL (7-18); BUN/CREATININE RATIO 43.5 (6.6-38.0); CALCIUM 8.8 MG/DL (8.5-10.1); CHLORIDE 99 MMOL/L (99-107); CREATININE 1.08 MG/DL (0.40-0.90); GLUCOSE 180 MG/DL (70-104); POTASSIUM 4.7 MMOL/L (3.5-5.1); SODIUM 134 MMOL/L (135-145); TOTAL CARBON DIOXIDE 27.1 MMOL/L (24-32); eGFR 51 ML/MIN
[2019-01-29 11:00] VITALS: BP 106/74
--- NOTE | 2019-01-29 13:38 | NUR ---
Reassessment: Pt low PO persists 0-25% avg meals 13 days only drinking ensures TID and ensures from outside for main nutrition. LBM 01/28; noted to have N/V episode yesterday per MD note. VICTORINA d/w RN regarding appetite stimulant per MD approval given low PO hx not meeting needs and pt has reported lower appetite r/t various reasons since admit. Receiving zofran PRN. Will continue to monitor for PO diet improvement; IF low PO persists given CA DX may need alternative nutrition delivery in order to meet needs and increase strength this admit. Rec: 1. continue regular diet; honor pt food preferences 2. chocolate ensure high protein TIDWM; ensures from home by SO 3. appetite stimulant per MD approval 4. routine bowel care 5. weekly wts 6. Consider alternative supplemental nutrition in order to meet needs pending pt/MD approval given prolonged low PO Addendum: 01/29/19 at [address] Amended: Links added.
[2019-01-29 13:47] LABS: BASOPHILS # (AUTO) 0.1 X10'3 (0-0.2); BASOPHILS % (AUTO) 0.5 % (0-1); EOSINOPHILS % (AUTO) 0.1 % (0-6); HEMATOCRIT 39.8 % (35.0-45.0); LYMPHOCYTES # (AUTO) 0.7 X10'3 (1.1-4.8); LYMPHOCYTES % (AUTO) 4.2 % (21-51); MEAN CORPUSCULAR HEMOGLOBIN 31.7 PG (27.0-31.0); MEAN CORPUSCULAR HGB CONC 32.7 g/dL (33.0-36.5); MEAN CORPUSCULAR VOLUME 96.9 FL (78-98); MEAN PLATELET VOLUME 8.5 FL (7.4-10.4); MONOCYTES # (AUTO) 1.1 X10'3 (0-0.9); MONOCYTES % (AUTO) 6.7 % (2-12); NEUTROPHILS % (AUTO) 88.5 % (42-75); PLATELET COUNT 237 X10'3 (140-440); RED BLOOD COUNT 4.11 X10'6 (4.20-5.60); RED CELL DISTRIBUTION WIDTH 17.3 % (11.5-14.5)
[2019-01-29 15:00] VITALS: BP 103/80
[2019-01-29 19:00] VITALS: BP 114/71
--- NOTE | 2019-01-29 19:01 | NUR ---
Problems reprioritized. Patient report given, questions answered & plan of care reviewed with Kristen ELLIOTT.
[2019-01-29] MEDS: sennosides/docusate sodium tablet PO SCH (19:54)
[2019-01-29] MEDS: diphenhydrAMINE 25mg capsule PO PRN (20:26)
[2019-01-29] MEDS: insulin glargine (Lantus) pen - multi-dose SQ SCH (21:09)
[2019-01-29 23:00] VITALS: BP 110/72
[2019-01-29] MEDS: morphine 2 MG/ML inj. syringe IV PRN (23:41)
[2019-01-30 03:00] VITALS: BP 113/84
[2019-01-30 05:45] LABS: BASOPHILS % (AUTO) 0.2 % (0-1); EOSINOPHILS % (AUTO) 0.1 % (0-6); HEMATOCRIT 39.2 % (35.0-45.0); HEMOGLOBIN 12.8 g/dl (12.0-16.0); LYMPHOCYTES # (AUTO) 0.6 X10'3 (1.1-4.8); LYMPHOCYTES % (AUTO) 4.2 % (21-51); MEAN CORPUSCULAR HEMOGLOBIN 31.7 PG (27.0-31.0); MEAN CORPUSCULAR HGB CONC 32.7 g/dL (33.0-36.5); MEAN CORPUSCULAR VOLUME 97.1 FL (78-98); MEAN PLATELET VOLUME 8.4 FL (7.4-10.4); MONOCYTES # (AUTO) 0.5 X10'3 (0-0.9); NEUTROPHILS # (AUTO) 12.4 X10'3 (1.8-7.7); NEUTROPHILS % (AUTO) 91.5 % (42-75); PLATELET COUNT 235 X10'3 (140-440); RED BLOOD COUNT 4.04 X10'6 (4.20-5.60); RED CELL DISTRIBUTION WIDTH 17.3 % (11.5-14.5); WHITE BLOOD COUNT 13.6 X10'3 (4.5-11.0)
[2019-01-30 06:13] LABS: ALBUMIN 2.5 G/DL (3.4-5.0); ANION GAP 7 (8-16); BLOOD UREA NITROGEN 42 MG/DL (7-18); BUN/CREATININE RATIO 41.2 (6.6-38.0); CALCIUM 8.7 MG/DL (8.5-10.1); CHLORIDE 98 MMOL/L (99-107); CREATININE 1.02 MG/DL (0.40-0.90); GLUCOSE 162 MG/DL (70-104); PHOSPHORUS 4.4 MG/DL (2.3-4.5); POTASSIUM 4.6 MMOL/L (3.5-5.1); SODIUM 135 MMOL/L (135-145); eGFR 55 ML/MIN
--- NOTE | 2019-01-30 06:35 | NUR ---
Problems reprioritized. Patient report given, questions answered & plan of care reviewed with Taniya ELLIOTT.
[2019-01-30 07:00] VITALS: BP 111/86
--- NOTE | 2019-01-30 07:02 | NUR ---
Patient in room U 3012. I have received report from Kristen and had the opportunity to ask questions and assume patient care. Patient sitting in chair watching t.v. in no apparent distress.
[2019-01-30] MEDS: apixaban 5mg tablet PO SCH ×2 (07:50→20:12)
[2019-01-30] MEDS: docusate sod 100mg capsule PO SCH ×2 (07:50→20:12)
[2019-01-30] MEDS: methylPREDNISolone sod succ 125mg/2ml vial IV SCH ×3 (07:50→23:30)
[2019-01-30] MEDS: carBAMazepine Ext. Release 200 MG TAB.ER.12H PO SCH ×2 (07:50→20:14)
[2019-01-30] MEDS: famotidine 20mg tablet PO SCH ×2 (07:50→20:12)
[2019-01-30] MEDS: phenytoin sod ER 100mg capsule PO SCH ×2 (07:50→20:12)
[2019-01-30] MEDS: nystatin 15 GM powder TP SCH ×3 (07:52→21:28)
[2019-01-30] MEDS: K and/or MAG REPLACEMENT MC SCH (08:00)
[2019-01-30] MEDS: lactose-reduced food (Ensure High Protein) 237ml bottle PO SCH ×3 (08:00→18:00)
[2019-01-30] MEDS: diphenhydrAMINE 25mg capsule PO PRN ×2 (08:05→20:11)
[2019-01-30] MEDS: budesonide 0.5mg/2ml UD nebule IH SCH ×2 (08:36→20:39)
[2019-01-30] MEDS: ipratropium/albuterol 3ml nebule NEB SCH ×3 (08:36→20:38)
[2019-01-30] MEDS: insulin Lispro (HumaLOG) vial - multi-dose SQ SCH ×3 (09:55→19:08)
[2019-01-30 11:00] VITALS: BP 134/87
--- NOTE | 2019-01-30 14:51 | NUR ---
F/u: VICTORINA Naytev[employer] for appetite stimulant approval given 14 days now only drinking ensures for nutrition not meeting needs w/ morbid obesity and DX. IF low PO persists on appetite stimulant will require supplemental enteral nutrition in order to adequately meet needs. Will continue to monitor. Addendum: 01/30/19 at [address] Amended: Links added.
[2019-01-30] MEDS: HYDROcodone/acetaminophen 10/325mg tab PO PRN ×2 (16:23→23:30)
--- NOTE | 2019-01-30 16:33 | NUR ---
Patient has refused to reposition and prefers to stay in chair. RBC's explained r/t pressure ulcer risks and poor nutrition. Pt. verbalized understanding. Patient also refused optifoam to be applied. Will continue to monitor.
[2019-01-30 16:34] VITALS: BP 110/65
[2019-01-30 18:00] VITALS: BP 139/86
--- NOTE | 2019-01-30 18:33 | NUR ---
Patient in room PCU 3012. I have received report from Taniya ELLIOTT and had the opportunity to ask questions and assume patient care.
--- NOTE | 2019-01-30 18:41 | NUR ---
Problems reprioritized. Patient report given, questions answered & plan of care reviewed with Lucero, patient eating dinner in chair, in no apparent distress.
[2019-01-30] MEDS: sennosides/docusate sodium tablet PO SCH (20:12)
[2019-01-30] MEDS: insulin glargine (Lantus) pen - multi-dose SQ SCH (21:27)
[2019-01-30 22:00] VITALS: BP 126/89
[2019-01-31] MEDS: morphine 2 MG/ML inj. syringe IV PRN ×2 (01:00→21:41)
[2019-01-31 02:00] VITALS: BP 121/89
[2019-01-31 06:00] VITALS: BP 118/90
[2019-01-31 06:03] LABS: BASOPHILS # (AUTO) 0.1 X10'3 (0-0.2); BASOPHILS % (AUTO) 0.4 % (0-1); EOSINOPHILS % (AUTO) 0.1 % (0-6); HEMATOCRIT 38.8 % (35.0-45.0); HEMOGLOBIN 12.8 g/dl (12.0-16.0); LYMPHOCYTES # (AUTO) 0.9 X10'3 (1.1-4.8); LYMPHOCYTES % (AUTO) 5.3 % (21-51); MEAN CORPUSCULAR HEMOGLOBIN 32.1 PG (27.0-31.0); MEAN CORPUSCULAR HGB CONC 32.9 g/dL (33.0-36.5); MEAN CORPUSCULAR VOLUME 97.4 FL (78-98); MEAN PLATELET VOLUME 8.3 FL (7.4-10.4); MONOCYTES # (AUTO) 0.8 X10'3 (0-0.9); NEUTROPHILS # (AUTO) 14.4 X10'3 (1.8-7.7); NEUTROPHILS % (AUTO) 89.2 % (42-75); PLATELET COUNT 210 X10'3 (140-440); RED BLOOD COUNT 3.99 X10'6 (4.20-5.60); RED CELL DISTRIBUTION WIDTH 18.2 % (11.5-14.5); WHITE BLOOD COUNT 16.2 X10'3 (4.5-11.0)
--- NOTE | 2019-01-31 06:05 | NUR ---
Problems reprioritized. Patient report given, questions answered & plan of care reviewed with Jocelin ELLIOTT.
--- NOTE | 2019-01-31 06:07 | NUR ---
Patient in room PCU 3012. I have received report from Lucero ELLIOTT and had the opportunity to ask questions and assume patient care.
[2019-01-31 06:42] LABS: ALBUMIN 2.4 G/DL (3.4-5.0); ANION GAP 11 (8-16); BLOOD UREA NITROGEN 41 MG/DL (7-18); BUN/CREATININE RATIO 50.6 (6.6-38.0); CALCIUM 8.8 MG/DL (8.5-10.1); CHLORIDE 99 MMOL/L (99-107); CREATININE 0.81 MG/DL (0.40-0.90); GLUCOSE 129 MG/DL (70-104); POTASSIUM 4.7 MMOL/L (3.5-5.1); SODIUM 135 MMOL/L (135-145); TOTAL CARBON DIOXIDE 25.4 MMOL/L (24-32); eGFR 71 ML/MIN
[2019-01-31] MEDS: ipratropium/albuterol 3ml nebule NEB SCH ×3 (07:29→20:02)
[2019-01-31] MEDS: budesonide 0.5mg/2ml UD nebule IH SCH ×2 (07:29→20:02)
[2019-01-31] MEDS: K and/or MAG REPLACEMENT MC SCH (08:00)
[2019-01-31] MEDS: docusate sod 100mg capsule PO SCH ×2 (08:00→20:29)
[2019-01-31] MEDS: lactose-reduced food (Ensure High Protein) 237ml bottle PO SCH ×3 (08:00→18:00)
[2019-01-31] MEDS: phenytoin sod ER 100mg capsule PO SCH ×2 (09:19→20:29)
[2019-01-31] MEDS: carBAMazepine Ext. Release 200 MG TAB.ER.12H PO SCH ×2 (09:19→20:30)
[2019-01-31] MEDS: famotidine 20mg tablet PO SCH ×2 (09:19→20:29)
[2019-01-31] MEDS: methylPREDNISolone sod succ 125mg/2ml vial IV SCH ×2 (09:20→15:50)
[2019-01-31] MEDS: sennosides/docusate sodium tablet PO SCH (09:20)
[2019-01-31] MEDS: nystatin 15 GM powder TP SCH ×3 (09:20→20:33)
[2019-01-31] MEDS: apixaban 5mg tablet PO SCH (09:20)
[2019-01-31] MEDS: insulin Lispro (HumaLOG) vial - multi-dose SQ SCH ×3 (09:27→19:09)
[2019-01-31] MEDS: HYDROcodone/acetaminophen 10/325mg tab PO PRN (10:07)
[2019-01-31 11:00] VITALS: BP 117/82
[2019-01-31 15:00] VITALS: BP 104/74
--- NOTE | 2019-01-31 17:50 | NUR ---
page Dr. Sanchez PAGER ID: [phone] MESSAGE: Room 3012B Sujit Alexander: Picture of patient's X-Ray is in her chart, they are having trouble transmitting the data over, . Thank you, Jocelin ext [phone].
[2019-01-31 18:00] VITALS: BP 117/83
--- NOTE | 2019-01-31 18:23 | NUR ---
Problems reprioritized. Patient report given, questions answered & plan of care reviewed with Lucero ELLIOTT. Patient stable at time of transfer of care.
--- NOTE | 2019-01-31 18:26 | NUR ---
Patient in room PCU 3012. I have received report from Jocelin ELLIOTT and had the opportunity to ask questions and assume patient care.
[2019-01-31] MEDS: enoxaparin 30mg/0.3ml syringe SUBCUT SCH (20:27)
[2019-01-31] MEDS: enoxaparin 80mg/0.8ml syringe SUBCUT SCH (20:28)
[2019-01-31] MEDS: insulin glargine (Lantus) pen - multi-dose SQ SCH (21:11)
[2019-01-31 22:00] VITALS: BP 109/75
[2019-02-01] MEDS: methylPREDNISolone sod succ 125mg/2ml vial IV SCH ×3 (00:06→16:06)
[2019-02-01 02:00] VITALS: BP 109/82
[2019-02-01 06:00] VITALS: BP 106/78
--- NOTE | 2019-02-01 06:09 | NUR ---
Problems reprioritized. Patient report given, questions answered & plan of care reviewed with Jocelin ELLIOTT.
--- NOTE | 2019-02-01 06:09 | NUR ---
Patient in room PCU 3012. I have received report from Lucero ELLIOTT and had the opportunity to ask questions and assume patient care.
[2019-02-01] MEDS: budesonide 0.5mg/2ml UD nebule IH SCH ×2 (07:59→20:07)
[2019-02-01] MEDS: ipratropium/albuterol 3ml nebule NEB SCH ×3 (07:59→20:07)
[2019-02-01] MEDS: K and/or MAG REPLACEMENT MC SCH (08:00)
[2019-02-01] MEDS: insulin Lispro (HumaLOG) vial - multi-dose SQ SCH ×3 (08:17→19:20)
[2019-02-01] MEDS: enoxaparin 30mg/0.3ml syringe SUBCUT SCH ×2 (08:19→19:23)
[2019-02-01] MEDS: enoxaparin 80mg/0.8ml syringe SUBCUT SCH ×2 (08:19→19:22)
[2019-02-01] MEDS: phenytoin sod ER 100mg capsule PO SCH ×2 (08:20→19:21)
[2019-02-01] MEDS: famotidine 20mg tablet PO SCH ×2 (08:20→19:21)
[2019-02-01] MEDS: docusate sod 100mg capsule PO SCH ×2 (08:20→19:21)
[2019-02-01] MEDS: carBAMazepine Ext. Release 200 MG TAB.ER.12H PO SCH ×2 (08:20→21:51)
[2019-02-01] MEDS: nystatin 15 GM powder TP SCH ×3 (08:21→21:00)
[2019-02-01] MEDS: diphenhydrAMINE 25mg capsule PO PRN ×2 (08:24→22:01)
[2019-02-01] MEDS: HYDROcodone/acetaminophen 10/325mg tab PO PRN ×2 (08:25→22:02)
[2019-02-01] MEDS: lactose-reduced food (Ensure High Protein) 237ml bottle PO SCH ×3 (08:29→18:00)
--- NOTE | 2019-02-01 09:43 | NUR ---
Page Dr. Sanchez PAGER ID: [phone] MESSAGE: Room 3012B Sujit Alexander: Would you like a CBC & BMP for this patient today? Thank you, Jocelin ext [phone]
[2019-02-01] MEDS: morphine 2 MG/ML inj. syringe IV PRN (10:26)
[2019-02-01 11:00] VITALS: BP 103/75
[2019-02-01 11:05] LABS: BASOPHILS # (AUTO) 0.1 X10'3 (0-0.2); BASOPHILS % (AUTO) 0.8 % (0-1); EOSINOPHILS # (AUTO) 0.1 X10'3 (0-0.9); EOSINOPHILS % (AUTO) 0.4 % (0-6); HEMATOCRIT 38.8 % (35.0-45.0); HEMOGLOBIN 12.7 g/dl (12.0-16.0); LYMPHOCYTES # (AUTO) 0.6 X10'3 (1.1-4.8); LYMPHOCYTES % (AUTO) 3.2 % (21-51); MEAN CORPUSCULAR HEMOGLOBIN 31.6 PG (27.0-31.0); MEAN CORPUSCULAR HGB CONC 32.7 g/dL (33.0-36.5); MEAN CORPUSCULAR VOLUME 96.8 FL (78-98); MEAN PLATELET VOLUME 8.2 FL (7.4-10.4); MONOCYTES % (AUTO) 5.9 % (2-12); NEUTROPHILS # (AUTO) 15.4 X10'3 (1.8-7.7); NEUTROPHILS % (AUTO) 89.7 % (42-75); PLATELET COUNT 241 X10'3 (140-440); RED CELL DISTRIBUTION WIDTH 18.3 % (11.5-14.5); WHITE BLOOD COUNT 17.2 X10'3 (4.5-11.0)
[2019-02-01 11:20] LABS: ALBUMIN 2.4 G/DL (3.4-5.0); ANION GAP 6 (8-16); BLOOD UREA NITROGEN 37 MG/DL (7-18); BUN/CREATININE RATIO 40.2 (6.6-38.0); CALCIUM 8.2 MG/DL (8.5-10.1); CHLORIDE 98 MMOL/L (99-107); CREATININE 0.92 MG/DL (0.40-0.90); GLUCOSE 115 MG/DL (70-104); SODIUM 135 MMOL/L (135-145); TOTAL CARBON DIOXIDE 30.6 MMOL/L (24-32); eGFR 61 ML/MIN
[2019-02-01 11:21] LABS: POTASSIUM 4.1 MMOL/L (3.5-5.1)
--- NOTE | 2019-02-01 14:04 | NUR ---
Reassessment: VICTORINA f/u w/ pt today who reports appetite has improved slightly but cannot eat too much r/t pressure she feels in her abdomen given METS DX. Pt does report no longer receiving ensures from outside and only wants to continue ONS TIDWM. PO has improved 50-75% avg meals past 2 days in addition to 100% ONS best PO in past 2 weeks. Pt states no current nutrition/dietary concerns and food preferences are being honored. Pt knows how to write in options on menu and is seen by menu expense clerk daily. LBM 01/29 receiving colace and senna. Will continue to monitor. Rec: 1. continue regular diet; honor pt food preferences 2. chocolate ensure high protein TIDWM 3. IF PO declines again; consider appetite stimulant per MD approval 4. routine bowel care 5. weekly wts Addendum: 02/01/19 at [address] Amended: Links added.
--- NOTE | 2019-02-01 14:26 | NUR ---
Patient refused daily weight.
[2019-02-01 15:00] VITALS: BP 117/82
[2019-02-01 18:00] VITALS: BP 107/73
--- NOTE | 2019-02-01 18:22 | NUR ---
Problems reprioritized. Patient report given, questions answered & plan of care reviewed with Elliot RN. Patient stable at time of transfer of care.
--- NOTE | 2019-02-01 18:23 | NUR ---
received report from LEXI Monreal
--- NOTE | 2019-02-01 19:54 | NUR ---
pt states she will drink supplement drinks later at this time
[2019-02-01] MEDS: insulin glargine (Lantus) pen - multi-dose SQ SCH (21:51)
[2019-02-01] MEDS: sennosides/docusate sodium tablet PO SCH (21:52)
[2019-02-01 22:00] VITALS: BP 110/77
[2019-02-02] MEDS: methylPREDNISolone sod succ 125mg/2ml vial IV SCH ×4 (00:56→23:33)
[2019-02-02 02:00] VITALS: BP 111/71
[2019-02-02 06:00] VITALS: BP 103/60
--- NOTE | 2019-02-02 06:17 | NUR ---
report given to LEXI Rose
--- NOTE | 2019-02-02 06:44 | NUR ---
Patient in room PCU 3012. I have received report from LEIX Zarate and had the opportunity to ask questions and assume patient care.
[2019-02-02] MEDS: lactose-reduced food (Ensure High Protein) 237ml bottle PO SCH ×3 (08:00→18:00)
[2019-02-02] MEDS: K and/or MAG REPLACEMENT MC SCH (08:00)
[2019-02-02] MEDS: budesonide 0.5mg/2ml UD nebule IH SCH ×2 (08:06→19:50)
[2019-02-02] MEDS: ipratropium/albuterol 3ml nebule NEB SCH ×3 (08:06→19:50)
[2019-02-02] MEDS: enoxaparin 80mg/0.8ml syringe SUBCUT SCH ×2 (08:41→20:55)
[2019-02-02] MEDS: docusate sod 100mg capsule PO SCH ×2 (08:42→20:54)
[2019-02-02] MEDS: phenytoin sod ER 100mg capsule PO SCH ×2 (08:42→20:54)
[2019-02-02] MEDS: famotidine 20mg tablet PO SCH ×2 (08:42→20:54)
[2019-02-02] MEDS: enoxaparin 30mg/0.3ml syringe SUBCUT SCH ×2 (08:43→20:56)
[2019-02-02] MEDS: carBAMazepine Ext. Release 200 MG TAB.ER.12H PO SCH ×2 (09:00→20:53)
[2019-02-02] MEDS: nystatin 15 GM powder TP SCH ×3 (09:00→21:10)
[2019-02-02] MEDS: insulin Lispro (HumaLOG) vial - multi-dose SQ SCH ×3 (09:25→19:30)
[2019-02-02 11:00] VITALS: BP 101/76
--- NOTE | 2019-02-02 11:38 | NUR ---
I have reviewed and agree with all medications administered and interventions performed by [employer]OR [employer]IST Student Ramin Garza
[2019-02-02 15:00] VITALS: BP 121/86
[2019-02-02 18:00] VITALS: BP 122/94
--- NOTE | 2019-02-02 18:35 | NUR ---
Patient in room PCU 3012C. I have received report from LEXI Downey and had the opportunity to ask questions and assume patient care.
--- NOTE | 2019-02-02 18:35 | NUR ---
Problems reprioritized. Patient report given, questions answered & plan of care reviewed with Burt Landis .
[2019-02-02] MEDS: HYDROcodone/acetaminophen 5mg/325mg tablet PO PRN (20:54)
[2019-02-02] MEDS: insulin glargine (Lantus) pen - multi-dose SQ SCH (21:00)
[2019-02-02] MEDS: diphenhydrAMINE 25mg capsule PO PRN (21:08)
[2019-02-02] MEDS: sennosides/docusate sodium tablet PO SCH (21:09)
[2019-02-02 22:00] VITALS: BP 114/88
[2019-02-02] MEDS: morphine 2 MG/ML inj. syringe IV PRN (23:33)
[2019-02-03 02:00] VITALS: BP 114/87
[2019-02-03 06:00] VITALS: BP 135/83
--- NOTE | 2019-02-03 06:08 | NUR ---
Problems reprioritized. Patient report given, questions answered & plan of care reviewed with LEXI Downey. Patient stable at shift change
--- NOTE | 2019-02-03 06:10 | NUR ---
Patient in room PCU 3012. I have received report from LEXI Landis and had the opportunity to ask questions and assume patient care.
[2019-02-03] MEDS: ipratropium/albuterol 3ml nebule NEB SCH (07:29)
[2019-02-03] MEDS: budesonide 0.5mg/2ml UD nebule IH SCH (07:30)
[2019-02-03] MEDS: enoxaparin 30mg/0.3ml syringe SUBCUT SCH (07:52)
[2019-02-03] MEDS: enoxaparin 80mg/0.8ml syringe SUBCUT SCH (07:52)
[2019-02-03] MEDS: methylPREDNISolone sod succ 125mg/2ml vial IV SCH (07:53)
[2019-02-03] MEDS: docusate sod 100mg capsule PO SCH (07:53)
[2019-02-03] MEDS: phenytoin sod ER 100mg capsule PO SCH (07:53)
[2019-02-03] MEDS: famotidine 20mg tablet PO SCH (07:53)
[2019-02-03] MEDS: carBAMazepine Ext. Release 200 MG TAB.ER.12H PO SCH (07:54)
[2019-02-03] MEDS: lactose-reduced food (Ensure High Protein) 237ml bottle PO SCH (08:00)
[2019-02-03] MEDS: K and/or MAG REPLACEMENT MC SCH (08:00)
[2019-02-03] MEDS: nystatin 15 GM powder TP SCH (08:00)
[2019-02-03 11:00] VITALS: BP 109/80
[2019-02-03] MEDS: morphine 2 MG/ML inj. syringe IV PRN (11:34)
--- NOTE | 2019-02-03 15:00 | NUR ---
pT WAS TRANSFERRED TO [facility] via [employer] in with one attendant. All her belongings were sent. Discharged papers were not signed as the transport company left the building without notifying staff of departure. RN will call receiving facility with report and fax any pertinent records. .
--- NOTE | 2019-02-03 16:42 | NUR ---
Spoke with Sharron Moran [facility] in [place], [place]. Faxed med list and went over medication instructions.
== END 2019-02-03 14:00 | DRG 280 ==
LOC: ER 10:14 → ED HOLD 14:11 → ICU 2S 15:34 → PCU 3S 01-26 15:35
PROVIDERS: ADMIT Family Medicine; ATTEND Family Medicine
PROC: B32T1ZZ Computerized Tomography (CT Scan) of Left Pulmonary Artery using Low Osmolar Contrast (ICD-10-PCS; principal; 2019-01-16)
PROC: B3201ZZ Computerized Tomography (CT Scan) of Thoracic Aorta using Low Osmolar Contrast (ICD-10-PCS; 2019-01-16)
PROC: B32S1ZZ Computerized Tomography (CT Scan) of Right Pulmonary Artery using Low Osmolar Contrast (ICD-10-PCS; 2019-01-16)
DX: I11.0 Hypertensive heart disease with heart failure (principal); I21.4 Non-ST elevation (NSTEMI) myocardial infarction; I26.02 Saddle embolus of pulmonary artery with acute cor pulmonale; J96.21 Acute and chronic respiratory failure with hypoxia; C56.9 Malignant neoplasm of unspecified ovary; Z68.42 Body mass index [BMI] 45.0-49.9, adult; R18.0 Malignant ascites; N17.9 Acute kidney failure, unspecified; I50.43 Acute on chronic combined systolic (congestive) and diastolic (congestive) heart failure; E66.01 Morbid (severe) obesity due to excess calories; M19.90 Unspecified osteoarthritis, unspecified site; R14.0 Abdominal distension (gaseous); G40.909 Epilepsy, unspecified, not intractable, without status epilepticus; J44.9 Chronic obstructive pulmonary disease, unspecified; Z79.01 Long term (current) use of anticoagulants; Z86.711 Personal history of pulmonary embolism; Z87.01 Personal history of pneumonia (recurrent); Z88.0 Allergy status to penicillin; Z88.8 Allergy status to other drugs, medicaments and biological substances; Z79.899 Other long term (current) drug therapy
CPT/HCPCS: 36415; 36600; 71045; 71275; 76604; 76705; 76937; 80048; 80053; 80185; 81001; 82570; 82803; 82948; 83605; 83735; 83880; 84100; 84145; 84300; 84484; 85018; 85025; 85610; 85730; 87040; 87081; 87207; 93005; 93308; 93970; 94640; 94760; 96365; 96375; 97110; 97112; 97116; 97161; 97530; 97535; 99291; G0378; J0696; J1644; J1650; J1815; J1940; J2060; J2270; J2405; J2930; J7626; P9047; Q0163; Q9967